=== PATIENT | male | born 1965 | race Caucasian/White ===

== ENCOUNTER 2017-02-15 06:38 | Day surgery (SDC) | payer MEDICARE, OTHER ==
[2017-02-15 07:03] VITALS: BMI 30.5
[2017-02-15] MEDS ORDERED: Lactated Ringer's 500 ML IV SCH (07:30)
[2017-02-15] MEDS ORDERED: Lidocaine Hydrochloride 5 ML INJ ONE (07:37)
[2017-02-15] MEDS ORDERED: Propofol 10 mg/ml Inj (20 ML) ONE (07:37)
[2017-02-15] MEDS ORDERED: Phenylephrine 10 mg/ml Inj ONE (07:37)
--- NOTE | 2017-02-15 08:11 | CP.SDSHP ---
Same Day Surgery H & P - History Proposed Procedure: EGD Pre-Op Diagnosis: Cirrhosis. Abdominal pain - Previous Medical/Surgical History Cardiac: Hypertension Pulmonary: Emphysema/COPD (Hyperlipidemia) Endocrine/Metabolic: ETOH Abuse - Allergies Allergies: Allergies iv contrast Allergy (Intermediate, Uncoded 06/20/16 15:24) ITCHING also with rash - Current Medications Current Medications: reviewed, per reconciliation - Physical Exam General Appearance: wdwn nad Vital Signs: Vital Signs 02/15/17 02/15/17 07:03 08:05 Temperature 97 F L 97 F L Pulse Rate 80 80 Respiratory 20 20 Rate Blood Pressure 108/90 108/90 O2 Sat by Pulse 97 99 Oximetry Mental Status: Alert & Oriented x3 Heart: WNL Lungs: WNL GI: WNL - {Optional Preform as Required} Abdomen: WNL - Impression Impression: abdominal pain, cirrhosis, rule out varices Pt. Evaluated Today:Candidate for Anesthesia & Procedure: Yes - Date & Time Date: 02/15/17 Time: 08:11 Short Stay Discharge - Short Stay Discharge Admitting Diagnosis/Reason for Visit: ALCOHOLIC CIRRHOSIS Disposition: HOME/ ROUTINE
[2017-02-15] MEDS ORDERED: Albuterol-Ipratrop 3 mg / 0.5 (3 ml) UD INH STA (08:14)
[2017-02-15 08:55] LABS: INR 1.3
[2017-02-15 09:00] LABS: CHLORIDE 100 mmol/L (98-107); SODIUM 135 mmol/L (132-148)
[2017-02-15 09:02] LABS: HEMATOCRIT 44.7 % (35.0-51.0); MEAN CELL VOLUME 76.2 fL (80.0-94.0); MEAN CORPUSCULAR HEMOGLOBIN 24.5 pg (27.0-31.0); MEAN CORPUSCULAR HGB CONC 32.1 g/dL (33.0-37.0); MEAN PLATELET VOLUME 9.4 fL (7.2-11.7); RED CELL DISTRIBUTION WIDTH 17.3 % (11.5-14.5); WHITE BLOOD COUNT 8.9 K/uL (4.8-10.8)
[2017-02-15 09:03] LABS: ALKALINE PHOSPHATASE 98 U/L (38-126); ALT/SGPT 27 U/L (21-72); AST/SGOT 38 U/L (17-59); BLOOD UREA NITROGEN 12 mg/dL (9-20); CARBON DIOXIDE 28 mmol/L (22-30); GFR AFRICAN-AMERICAN > 60; GLUCOSE,RANDOM 91 mg/dL (75-110); TOTAL PROTEIN 6.8 g/dL (6.3-8.3)
[2017-02-15 09:04] LABS: CALCIUM 8.5 mg/dl (8.6-10.4)
[2017-02-15 10:34] VITALS: TEMP 97.5
[2017-02-15 11:33] VITALS: RESP 17
[2017-02-15 11:43] VITALS: BP 105/71; PULSE 80; O2SAT 94
== END 2017-02-15 11:15 | disposition home or self-care (01) ==
LOC: C.ENDO 06:38
PROVIDERS: ATTEND Internal Medicine Gastroenterology
DX: K31.89 Other diseases of stomach and duodenum (principal); K21.9 Gastro-esophageal reflux disease without esophagitis; K70.30 Alcoholic cirrhosis of liver without ascites; F10.10 Alcohol abuse, uncomplicated; I10 Essential (primary) hypertension; J43.9 Emphysema, unspecified; E78.5 Hyperlipidemia, unspecified; E03.9 Hypothyroidism, unspecified; G89.29 Other chronic pain; Z72.0 Tobacco use; Z98.890 Other specified postprocedural states; Z79.899 Other long term (current) drug therapy; Z91.041 Radiographic dye allergy status

== ENCOUNTER 2017-02-22 15:36 | Observation (INO) | payer MEDICARE, OTHER ==
[2017-02-22 15:36] VITALS: BMI 30.5
[2017-02-22 16:13] LABS: BASO # 0.1 K/uL (0.0-0.2); BASO % 0.6 % (0.0-2.0); EOS # 0.1 K/uL (0.0-0.7); EOS % 0.8 % (0.0-4.0); HEMATOCRIT 47.1 % (35.0-51.0); LYMPH # 2.1 K/uL (1.0-4.3); LYMPH % 18.9 % (20.0-40.0); MEAN CELL VOLUME 76.3 fL (80.0-94.0); MEAN CORPUSCULAR HEMOGLOBIN 24.2 pg (27.0-31.0); MEAN CORPUSCULAR HGB CONC 31.7 g/dL (33.0-37.0); MEAN PLATELET VOLUME 9.3 fL (7.2-11.7); MONO # 1.1 K/uL (0.0-0.8); MONO % 9.9 % (0.0-10.0); NRBC % 0.1 % (0.0-2.0); RED CELL DISTRIBUTION WIDTH 17.6 % (11.5-14.5); WHITE BLOOD COUNT 11.3 K/uL (4.8-10.8)
--- NOTE | 2017-02-22 16:18 | C.PDOC ---
History Of Present Illness 51 year old patient, with a past medical history of Anxiety, Asthma, Bipolar Disorder, COPD, Depression, Gastritis, HTN, Chronic Pain, presents to the ED initially complaining of chest pain and shortness of breath. He then states he has no chest pain or shortness of breath, but he has body aches and a sore throat for the past 3 days. Patient admits he has been drinking alcohol thinking that it would make him feel better. Patient notes he took many shots at home. He denies fever, chest pain, shortness of breath, nausea, vomiting, headache or dizziness. Time Seen by Provider: 02/22/17 15:38 Chief Complaint (Nursing): Shortness Of Breath History Per: Patient History/Exam Limitations: intoxication Onset/Duration Of Symptoms: Days (3) Current Symptoms Are (Timing): Still Present Quality: "Pain" Severity: Mild Pain Scale Rating Of: 3 Recent travel outside of the [place]: No Additional History Per: Prior Records Past Medical History Reviewed: Historical Data, Nursing Documentation, Vital Signs Vital Signs: Last Vital Signs Temp 98.1 F 02/22/17 15:42 Pulse 102 H 02/22/17 15:42 Resp 22 02/22/17 15:42 BP 106/1 L 02/22/17 15:42 Pulse Ox 92 L 02/22/17 18:11 - Medical History PMH: Anxiety, Asthma, Bipolar Disorder, COPD, Depression, Gastritis, HTN, Chronic Pain Surgical History: Coronary Stent, Endoscopy - [facility] Procedures DETOXIFICATION SERVICES FOR SUBSTANCE ABUSE TREATMENT (12/14/15) INJECT/INFUSE NEC (01/28/15) NEBULIZER THERAPY (01/28/15) Family History: States: Unknown Family Hx - Social History Hx Tobacco Use: Yes Hx Alcohol Use: Yes Hx Substance Use: No - Immunization History Hx Tetanus Toxoid Vaccination: No Hx Influenza Vaccination: No Hx Pneumococcal Vaccination: No Review Of Systems Except As Marked, All Systems Reviewed And Found Negative. Constitutional: Positive for: Other (body aches). Negative for: Fever ENT: Positive for: Throat Pain Cardiovascular: Negative for: Chest Pain Respiratory: Negative for: Shortness of Breath Gastrointestinal: Negative for: Nausea, Vomiting Neurological: Negative for: Headache, Dizziness Physical Exam - Physical Exam Appears: Non-toxic, No Acute Distress, Other (sleepy, arousable) Skin: Warm, Dry Head: Atraumatic, Normacephalic Neck: Normal ROM, Supple Chest: Symmetrical Cardiovascular: Rhythm Regular Respiratory: No Accessory Muscle Use, No Rales, Rhonchi (bilateral), Wheezing ( bilateral) Gastrointestinal/Abdominal: Soft, No Tenderness Back: Normal Inspection, No CVA Tenderness Extremity: Normal ROM Neurological/Psych: Oriented x3, Normal Speech, Normal Cognition Gait: Steady ED Course And Treatment - Laboratory Results Result Diagrams: 02/22/17 16:09 02/22/17 16:09 Lab Interpretation: No Acute Changes ECG: Interpreted By Me ECG Rhythm: Sinus Rhythm, R BBB ECG Interpretation: No Changes From Prior Rate From EC O2 Sat by Pulse Oximetry: 92 (room air) Pulse Ox Interpretation: Abnormal - Radiology CXR: Interpreted by Me, Viewed By Me CXR Interpretation: Yes: No Acute Disease Progress Note: Plan: EKG, Labs, Chest x-ray, Duoneb, Solu-Medrol. Treated with toradol IV. On re-evaluation C/O continued generalized pain. Treated with morphine 4 mg IV. On re-evaluation lungs few wheeze Reassessment Condition: Improved - Physician Consult Information Physician Contacted: Baldomero Ham Outcome Of Conversation: admit Disposition Discussed With : Baldomero Ham Doctor Will See Patient In The: Hospital - Disposition Disposition: HOSPITALIZED Disposition Time: 18:20 Condition: STABLE - POA Present On Arrival: None - Clinical Impression Clinical Impression: Chronic congestive heart failure, Chest pain, Alcohol abuse - PA / VP GENETIC / Resident Statement MD/DO has reviewed & agrees with the documentation as recorded. - Scribe Statement The provider has reviewed the documentation as recorded by the Scribe Julianna Gorman All medical record entries made by the Scribe were at my direction and personally dictated by me. I have reviewed the chart and agree that the record accurately reflects my personal performance of the history, physical exam, medical decision making, and the department course for this patient. I have also personally directed, reviewed, and agree with the discharge instructions and disposition.
[2017-02-22 16:25] LABS: CHLORIDE 101 mmol/L (98-107); POTASSIUM 3.3 mmol/L (3.6-5.2); SODIUM 136 mmol/L (132-148)
[2017-02-22 16:27] LABS: AST/SGOT 35 U/L (17-59); BILIRUBIN,TOTAL 1.6 mg/dL (0.2-1.3); CARBON DIOXIDE 21 mmol/L (22-30); GFR AFRICAN-AMERICAN > 60
[2017-02-22 16:28] LABS: ALB/GLOB RATIO 0.9 (1.0-2.1); ALKALINE PHOSPHATASE 93 U/L (38-126); ALT/SGPT 32 U/L (21-72); BLOOD UREA NITROGEN 10 mg/dL (9-20); CALCIUM 8.7 mg/dl (8.6-10.4); GLUCOSE,RANDOM 109 mg/dL (75-110); TOTAL PROTEIN 6.9 g/dL (6.3-8.3)
[2017-02-22 16:29] LABS: ALCOHOL SERUM 115 mg/dl (0-10)
--- NOTE | 2017-02-22 17:05 | RAD ---
HISTORY: SOB COMPARISON: No prior. TECHNIQUE: Chest PA and lateral FINDINGS: LUNGS: Mild to moderate venous congestion. Bilateral hilar prominence. Patchy left basilar airspace opacity. Biapical pleural thickening with upper lobe granulomatous changes. PLEURA: As above. CARDIOVASCULAR: Cardiomegaly. OSSEOUS STRUCTURES: Bilateral rib deformities; left greater than right. VISUALIZED UPPER ABDOMEN: Normal. OTHER FINDINGS: None. IMPRESSION: Mild to moderate venous congestion. Bilateral hilar prominence. Patchy left basilar airspace opacity. Biapical pleural thickening with upper lobe granulomatous changes.
[2017-02-22] MEDS ORDERED: Albuterol-Ipratrop 3 mg / 0.5 (3 ml) UD ONE (17:16)
[2017-02-22] MEDS: Albuterol-Ipratrop 3 mg / 0.5 (3 ml) UD IH SCH ×3 (17:20→17:40)
[2017-02-22] MEDS ORDERED: Morphine 4 MG/ML VIAL ONE (17:54)
[2017-02-22] MEDS ORDERED: Albuterol-Ipratrop 3 mg / 0.5 (3 ml) UD INH PRN (18:51)
[2017-02-22 19:46] LABS: RBC URINE 6 /hpf (0-3); URINE BACTERIA RARE (<OCC); URINE BILIRUBIN NEGATIVE (NEGATIVE); URINE BLOOD 2+ (NEGATIVE); URINE COLOR Yellow (YELLOW); URINE GLUCOSE (UA) NORMAL (Normal); URINE KETONE NEGATIVE (NEGATIVE); URINE LEUKOCYTE ESTERASE NEG Leu/uL (Negative); URINE PROTEIN NEGATIVE (NEGATIVE); URINE UROBILINOGEN NORMAL mg/dL (0.2-1.0); WBC URINE 4 /hpf (0-5)
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
[2017-02-23] MEDS: Potassium Chloride 20 mEq ER Tab PO SCH (12:55)
[2017-02-23] MEDS: Pantoprazole 40 mg EC Tab PO SCH (12:55)
[2017-02-23] MEDS: Azithromycin 500 MG in Sodium Chloride 0.9% 250 ML IVPB SCH (14:34)
[2017-02-23] MEDS: Oxycodone/Acetaminophen 5/325 mg Tab PO PRN (16:34)
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
--- NOTE | 2017-02-23 20:34 | CON ---
DATE: 02/23/2017 ADDENDUM PAST MEDICAL HISTORY: The patient has history of hypertension, thrombocytopenia, congestive heart surinder lure, pneumonia, chronic obstructive pulmonary disease, history of chronic pain syndrome, narcotic wi thdrawal. Tal Galvan MD cc: [phone] TT: 02/23/2017 20:33:35 Confirmation # [id number] Dictation # [id number] rn
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
--- NOTE | 2017-02-23 22:58 | CARD ---
APPROVED REPORT EKG Measurement Heart [id number] <Conclusion> Normal sinus rhythm Right superior axis deviation Incomplete right bundle branch block Inferior infarct, age undetermined Anterior infarct, age undetermined Inferolateral T wave abnormality, consider ischemia Abnormal ECG
[2017-02-24 06:57] LABS: BASO % 0.1 % (0.0-2.0); EOS # 0.1 K/uL (0.0-0.7); EOS % 0.6 % (0.0-4.0); HEMATOCRIT 43.7 % (35.0-51.0); LYMPH # 1.5 K/uL (1.0-4.3); LYMPH % 12.8 % (20.0-40.0); MEAN CELL VOLUME 76.5 fL (80.0-94.0); MEAN CORPUSCULAR HEMOGLOBIN 24.5 pg (27.0-31.0); MEAN CORPUSCULAR HGB CONC 32.1 g/dL (33.0-37.0); MEAN PLATELET VOLUME 9.9 fL (7.2-11.7); MONO # 0.7 K/uL (0.0-0.8); MONO % 6.5 % (0.0-10.0); NRBC % 0.1 % (0.0-2.0); RED CELL DISTRIBUTION WIDTH 18.1 % (11.5-14.5); WHITE BLOOD COUNT 11.5 K/uL (4.8-10.8)
[2017-02-24 07:22] LABS: CHLORIDE 107 mmol/L (98-107); POTASSIUM 4.3 mmol/L (3.6-5.2); SODIUM 137 mmol/L (132-148)
[2017-02-24 07:25] LABS: BLOOD UREA NITROGEN 14 mg/dL (9-20); CARBON DIOXIDE 25 mmol/L (22-30); GFR AFRICAN-AMERICAN > 60; GLUCOSE,RANDOM 111 mg/dL (75-110)
[2017-02-24 07:26] LABS: CALCIUM 8.7 mg/dl (8.6-10.4)
[2017-02-24 08:05] VITALS: PULSE 72; RESP 18; TEMP 97.5; O2SAT 94
[2017-02-24] MEDS: Potassium Chloride 20 mEq ER Tab PO SCH (10:14)
[2017-02-24] MEDS: Oxycodone/Acetaminophen 5/325 mg Tab PO PRN (10:14)
[2017-02-24] MEDS: Pantoprazole 40 mg EC Tab PO SCH (10:14)
[2017-02-24 10:23] VITALS: BP 110/79
--- NOTE | 2017-02-24 10:58 | CP.PCM.PN ---
<Arnie Noriega - Last Filed: 02/24/17 16:54> Subjective - Date & Time of Evaluation Date of Evaluation: 02/24/17 Time of Evaluation: 07:40 - Subjective Subjective: Cardiology Progress Note Dr. Montenegro Patient seen and examined at bedside. Sleeping during exam, somewhat somnolent , likely 2/2 alcohol withdrawal management medications, but arousable compared to yesterday, AAOx3, able to answer in sentences. No acute events overnight as per nursing. Objective - Vital Signs/Intake and Output Vital Signs (last 24 hours): Temp Pulse Resp BP Pulse Ox 97.5 F L 72 18 110/79 94 L 02/24/17 08:04 02/24/17 08:04 02/24/17 08:04 02/24/17 10:14 02/24/17 08:04 - Medications Medications: Current Medications Albuterol/Ipratropium (Duoneb 3 Mg/0.5 Mg (3 Ml) Ud) 3 ml INH RQ6 PRN PRN Reason: Shortness of Breath Furosemide (Lasix) 20 mg PO DAILY [facility] Last Admin: 02/24/17 10:14 Dose: 20 mg Heparin Sodium (Porcine) (Heparin) 5,000 units SC Q8 [facility] Last Admin: 02/24/17 06:15 Dose: 5,000 units Ceftriaxone Sodium 1 gm/ (Sodium Chloride) 100 mls @ 100 mls/hr IVPB Q24H [facility] Last Admin: 02/24/17 10:49 Dose: 100 mls/hr Azithromycin 500 mg/ Sodium (Chloride) 250 mls @ 250 mls/hr IVPB Q24H [facility] Last Admin: 02/23/17 14:34 Dose: 250 mls/hr Ibuprofen (Motrin Tab) 600 mg PO TID PRN PRN Reason: Pain, Mild (1-3) Last Admin: 02/23/17 12:50 Dose: 600 mg Lorazepam (Ativan) 2 mg IVP Q4H PRN PRN Reason: Anxiety Last Admin: 02/23/17 23:07 Dose: 2 mg Nicotine (Nicoderm Cq) 1 patch TD DAILY [facility] Last Admin: 02/24/17 10:14 Dose: 1 patch Oxycodone/Acetaminophen (Percocet 5/325 Mg Tab) 2 tab PO Q6H PRN PRN Reason: Pain, moderate (4-7) Stop: 02/26/17 16:13 Last Admin: 02/24/17 10:14 Dose: 2 tab Pantoprazole Sodium (Protonix Ec Tab) 40 mg PO DAILY [facility] Last Admin: 02/24/17 10:14 Dose: 40 mg Potassium Chloride (K-Dur 20 Meq Er Tab) 20 meq PO DAILY [facility] Last Admin: 02/24/17 10:14 Dose: 20 meq Thiamine HCl (Vitamin B1 Tab) 100 mg PO BID [facility] Last Admin: 02/24/17 10:15 Dose: 100 mg - Labs Labs: 02/24/17 06:50 02/24/17 06:50 - Additional Findings Additional findings: - Constitutional Appears: Unkempt, Somnolent/sedated but arousable - Eye Exam Eye Exam: Normal appearance - ENT Exam ENT Exam: Moist mucous membranes - Neck Exam Neck exam: Normal Inspection, No JVD - Respiratory Exam Respiratory Exam: Clear to Auscultation Bilateral, NORMAL BREATHING PATTERN, Not following commands for deep breathing on auscultation - Cardiovascular Exam Cardiovascular Exam: REGULAR RHYTHM, +S1, +S2 - GI/Abdominal Exam GI & Abdominal Exam: Normal Bowel Sounds, Soft. absent: Tenderness, Firm, Rigid - Extremities Exam Extremities exam: Positive for: normal inspection. Negative for: pedal edema, erythema, asymmetrical swelling - Neurological Exam Neurological exam: Altered, Somnolent/Sedated - Skin Skin Exam: Normal Color, Warm, Dry, Intact Assessment and Plan (1) Chest pain Assessment & Plan: EKG 02/22/17: Normal sinus rhythm, Right superior axis deviation, Incomplete RBBB , Inferior and Anterior infarct, age undetermined. CXR 02/22/17: Mild to moderate venous congestion. Bilateral hilar prominence. Patchy left basilar airspace opacity. Biapical pleural thickening with upper lobe granulomatous changes. ECHO 12/14/15: EF 50-55% with diastolic dysfunction, mild TR, no AR, MR or PVR, mild pulm HTN. ECHO 02/22/17: read pending Cath 06/15/16: normal coronaries with normal EF (per Dr. Glynn) Trops negative x3 -51 year old male admitted overnight with pneumonia, COPD exacerbation and alcohol intoxication. -Continue to monitor on Telemetry. -Cardiac Cath done 06/15/16 showed normal coronaries and EF on cath done 06/15/16. -Trops negative x3, pt denied chest pain yesterday, likely non-cardiac and secondary to pneumonia. -continue IV antibiotics as per primary team - f/u repeat ECHO. Last ECHO 12/13/16. Status: Acute (2) HTN (hypertension) Assessment & Plan: -BP controlled at this time. -Continue Lasix 20 mg PO daily as per primary team. Status: Acute - Assessment and Plan (Free Text) Assessment: Case discussed with Dr. Montenegro <Lucien Montenegro - Last Filed: 02/27/17 17:33> Objective - Vital Signs/Intake and Output Vital Signs (last 24 hours): Temp Pulse Resp BP Pulse Ox 97.5 F L 72 18 110/79 94 L 02/24/17 08:04 02/24/17 08:04 02/24/17 08:04 02/24/17 10:14 02/24/17 08:04 - Labs Labs: 02/24/17 06:50 02/24/17 06:50 Attending/Attestation - Attestation I have personally seen and examined this patient.: Yes I have fully participated in the care of the patient.: Yes I have reviewed all pertinent clinical information, including history, physical exam and plan: Yes Notes (Text): 02/27/17 17:33 Pt still withrawing from alchohol. No cp
[2017-02-24] MEDS: Azithromycin 500 MG in Sodium Chloride 0.9% 250 ML IVPB SCH (12:26)
--- NOTE | 2017-02-24 12:32 | PN ---
DATE: 02/24/2017 SUBJECTIVE: The patient is seen. The patient is more alert and verbal today. He said he wants to g o home because he has to meet a friend who is arriving from [place] at the airport. He will be going to the airport with his friend. The patient is not complaining of pain currently and is on Ativan p. r.n. and Percocet p.r.n. The patient states he wants to talk to Dr. Ham for medical clearan ce. VITAL SIGNS: Temperature is 97.5, pulse rate 72, blood pressure is 110/79, respiration is 18, oxygen sat is 94%. REVIEW OF SYSTEMS: GENERAL: The patient is more alert, verbal, seen in his room, more comfortable. SKIN: No diaphoresis. HEENT: No headache, no dizziness. NECK: Supple. RESPIRATORY: Not in acute respiratory distress. CARDIOVASCULAR: No chest pain. GASTROINTESTINAL: No nausea, no vomiting. EXTREMITIES: The patient is moving extremities, no tremors. MUSCULOSKELETAL: Feels weak. NEUROLOGIC: Alert, oriented x 3. MENTAL STATUS EXAMINATION: Well-developed male who looks stated age, oriented x 3. Mood is calmer. Affect is reactive. Speech spontaneous. Thought process coherent. Thought content: No psychosis. No suicidal or homicidal ideation. The patient wants to go home. He said he has to meet somebody from the airport arriving from [place]. Attention and memory seem to be fair. Insight and judgment f air. Impulse control is fair. IMPRESSION: History of bipolar disorder, not otherwise specified, as well as history of alcohol depe ndence as well as consider alcohol withdrawal. PLAN AND RECOMMENDATIONS: The patient seen, meds reviewed. Continue present management. Continue p resent psych meds. If patient will insist to go home, patient may need to sign AMA. Tal Galvan MD cc: [phone] TT: 02/24/2017 12:32:04 Confirmation # [id number] Dictation # [id number]
--- NOTE | 2017-02-26 21:12 | CARD ---
APPROVED REPORT EXAM: Two-dimensional and M-mode echocardiogram with Doppler and color Doppler. Other Information Quality : GoodRhythm : NSR INDICATION Dyspnea COPD Coronary Stent; alchohol abuse RISK FACTORS Hypertension M-Mode DIMENSIONS RVDd2.01 (2.1-3.2cm)Left Atrium (MM)4.43 (2.5-4.0cm) IVSd0.66 (0.7-1.1cm)Aortic Root3.28 (2.2-3.7cm) LVDd5.21 (4.0-5.6cm)Aortic Cusp Exc.2.25 (1.5-2.0cm) PWd0.76 (0.7-1.1cm)FS (%) 40 % LVDs3.12 (2.0-3.8cm)LVEF (%)70 (>50%) Mitral Valve MV E Txsfgokn15.4cm/sMV A Hmttutdf26.5cm/sE/A ratio0.6 TDI E/Lateral E'0.0E/Medial E'0.0 Tricuspid Valve TR Peak Swjydnwz352hm/sTR Peak Gr.[id number] LEFT VENTRICLE The left ventricle is normal size. There is normal left ventricular wall thickness. Left ventricle systolic function is normal. The Ejection Fraction is 65-70%. There is normal LV segmental wall motion. Tissue Doppler imaging reveals abnormal left ventricular diastolic dysfunction. No left ventricle thrombus noted on this study. RIGHT VENTRICLE The right ventricle is normal size. There is normal right ventricular wall thickness. The right ventricular systolic function is normal. ATRIA The left atrium size is normal. The right atrium size is normal. The interatrial septum is intact with no evidence for an atrial septal defect. AORTIC VALVE The aortic valve is normal in structure. No aortic regurgitation is present. There is no aortic valvular stenosis. There is no aortic valvular vegetation. MITRAL VALVE The mitral valve is normal in structure. There is no evidence of mitral valve prolapse. There is no mitral valve stenosis. There is no mitral valve regurgitation noted. TRICUSPID VALVE The tricuspid valve is normal in structure. There is mild tricuspid regurgitation. Right ventricular systolic pressure is estimated at 30-40 mmHg. There is mild pulmonary hypertension. PULMONIC VALVE The pulmonic valve is not well visualized. There is no pulmonic valvular regurgitation. GREAT VESSELS The aortic root is normal in size. PERICARDIAL EFFUSION There is no significant pericardial effusion. <Conclusion> Left ventricle systolic function is normal. The Ejection Fraction is 65-70%. Diastolic dysfunction. No aortic regurgitation is present. There is no mitral valve regurgitation noted. There is mild tricuspid regurgitation. There is mild pulmonary hypertension. There is no pulmonic valvular regurgitation.
--- NOTE | 2017-03-25 11:53 | CP.PCM.DIS ---
Provider - Provider Date of Admission: 02/22/17 18:07 Attending physician: Baldomero Ham MD Time Spent in preparation of Discharge (in minutes): 25 Diagnosis - Discharge Diagnosis (1) Pneumonia Status: Acute (2) COPD (chronic obstructive pulmonary disease) Status: Chronic (3) Chest pain Status: Acute (4) Alcohol abuse Status: Acute (5) Bipolar 1 disorder Status: Chronic Hospital Course - Lab Results Lab Results: Most Recent Lab Values WBC 11.5 K/uL (4.8-10.8) H 02/24/17 06:50 RBC 5.72 Mil/uL (4.40-5.90) 02/24/17 06:50 Hgb 14.0 g/dL (12.0-18.0) 02/24/17 06:50 Hct 43.7 % (35.0-51.0) 02/24/17 06:50 MCV 76.5 fL (80.0-94.0) L 02/24/17 06:50 MCH 24.5 pg (27.0-31.0) L 02/24/17 06:50 MCHC 32.1 g/dL (33.0-37.0) L 02/24/17 06:50 RDW 18.1 % (11.5-14.5) H 02/24/17 06:50 Plt Count 109 K/uL (130-400) L D 02/24/17 06:50 MPV 9.9 fL (7.2-11.7) 02/24/17 06:50 Neut % (Auto) 80.0 % (50.0-75.0) H 02/24/17 06:50 Lymph % (Auto) 12.8 % (20.0-40.0) L 02/24/17 06:50 [place] % (Auto) 6.5 % (0.0-10.0) 02/24/17 06:50 Eos % (Auto) 0.6 % (0.0-4.0) 02/24/17 06:50 Baso % (Auto) 0.1 % (0.0-2.0) 02/24/17 06:50 Neut # 9.2 K/uL (1.8-7.0) H 02/24/17 06:50 Lymph # 1.5 K/uL (1.0-4.3) 02/24/17 06:50 [place] # 0.7 K/uL (0.0-0.8) 02/24/17 06:50 Eos # 0.1 K/uL (0.0-0.7) 02/24/17 06:50 Baso # 0.0 K/uL (0.0-0.2) 02/24/17 06:50 Sodium 137 mmol/L (132-148) 02/24/17 06:50 Potassium 4.3 mmol/L (3.6-5.2) 02/24/17 06:50 Chloride 107 mmol/L (98-107) 02/24/17 06:50 Carbon Dioxide 25 mmol/L (22-30) 02/24/17 06:50 Anion Gap 10 (10-20) 02/24/17 06:50 BUN 14 mg/dL (9-20) 02/24/17 06:50 Creatinine 0.6 MG/DL (0.8-1.5) L 02/24/17 06:50 Est GFR ( Amer) > 60 02/24/17 06:50 Est GFR (Non-Af Amer) > 60 02/24/17 06:50 POC Glucose (mg/dL) 120 mg/dL (65-110) H 02/24/17 06:19 Random Glucose 111 mg/dL (75-110) H 02/24/17 06:50 Calcium 8.7 mg/dl (8.6-10.4) 02/24/17 06:50 Total Bilirubin 1.6 mg/dL (0.2-1.3) H 02/22/17 16:09 AST 35 U/L (17-59) 02/22/17 16:09 ALT 32 U/L (21-72) 02/22/17 16:09 Alkaline Phosphatase 93 U/L (38-126) 02/22/17 16:09 Total Creatine Kinase 51 U/L (55-170) L 02/23/17 08:54 CK-MB (Mass) 1.64 ng/mL (0.0-3.38) 02/23/17 08:54 Troponin I < 0.0120 ng/mL (0.00-0.120) 02/22/17 16:09 Troponin I, Quant < 0.0120 ng/mL (0.00-0.120) 02/23/17 08:54 NT-Pro-B Natriuret Pep 57.0 pg/mL (0-450) 02/22/17 16:09 Total Protein 6.9 g/dL (6.3-8.3) 02/22/17 16:09 Albumin 3.3 g/dL (3.5-5.0) L 02/22/17 16:09 Globulin 3.6 gm/dL (2.2-3.9) 02/22/17 16:09 Albumin/Globulin Ratio 0.9 (1.0-2.1) L 02/22/17 16:09 Urine Color Yellow (YELLOW) 02/22/17 19:30 Urine Clarity Hazy (Clear) 02/22/17 19:30 Urine pH 5.0 (5.0-8.0) 02/22/17 19:30 Ur Specific [place] 1.014 (1.003-1.030) 02/22/17 19:30 Urine Protein Negative mg/dL (NEGATIVE) 02/22/17 19:30 Urine Glucose (UA) Normal mg/dL (Normal) 02/22/17 19:30 Urine Ketones Negative mg/dL (NEGATIVE) 02/22/17 19:30 Urine Blood 2+ (NEGATIVE) H 02/22/17 19:30 Urine Nitrate Negative (NEGATIVE) 02/22/17 19:30 Urine Bilirubin Negative (NEGATIVE) 02/22/17 19:30 Urine Urobilinogen Normal mg/dL (0.2-1.0) 02/22/17 19:30 Ur Leukocyte Esterase Neg Shine/uL (Negative) 02/22/17 19:30 Urine WBC (Auto) 4 /hpf (0-5) 02/22/17 19:30 Urine RBC (Auto) 6 /hpf (0-3) H 02/22/17 19:30 Ur Squamous Epith Cells 3 /hpf (0-5) 02/22/17 19:30 Amorphous Sediment Rare /ul (<OCC) H 02/22/17 19:30 Urine Bacteria Rare (<OCC) 02/22/17 19:30 Urine Opiates Screen Positive (NEGATIVE) 02/22/17 19:30 Urine Methadone Screen Negative (NEGATIVE) 02/22/17 19:30 Ur Barbiturates Screen Negative (NEGATIVE) 02/22/17 19:30 Ur Phencyclidine Scrn Negative (NEGATIVE) 02/22/17 19:30 Ur Amphetamines Screen Negative (NEGATIVE) 02/22/17 19:30 U Benzodiazepines Scrn Negative (NEGATIVE) 02/22/17 19:30 U Oth Cocaine Metabols Negative (NEGATIVE) 02/22/17 19:30 U Cannabinoids Screen Positive (NEGATIVE) 02/22/17 19:30 Alcohol, Quantitative 115 mg/dl (0-10) H 02/22/17 16:09 Influenza Typ A,B (EIA) Negative for flu a/b (NEGATIVE) 02/22/17 16:12 Discharge Exam - Head Exam Additional comments: pt left ama Discharge Plan - Follow Up Plan Condition: STABLE Disposition: AGAINST MEDICAL ADVICE
== END 2017-02-24 13:10 | disposition left against medical advice (07) ==
LOC: C.ER 15:36 → C.9E 18:07 → C.5T 19:04
PROVIDERS: ADMIT Internal Medicine Pulmonary Disease; ATTEND Internal Medicine Pulmonary Disease
DX: J44.0 Chronic obstructive pulmonary disease with (acute) lower respiratory infection (principal); J18.9 Pneumonia, unspecified organism; J44.1 Chronic obstructive pulmonary disease with (acute) exacerbation; F10.229 Alcohol dependence with intoxication, unspecified; K74.60 Unspecified cirrhosis of liver; I11.0 Hypertensive heart disease with heart failure; I50.9 Heart failure, unspecified; E78.5 Hyperlipidemia, unspecified; G89.4 Chronic pain syndrome; F11.20 Opioid dependence, uncomplicated; F17.210 Nicotine dependence, cigarettes, uncomplicated; F31.9 Bipolar disorder, unspecified; Z98.890 Other specified postprocedural states; Z79.899 Other long term (current) drug therapy; Z91.041 Radiographic dye allergy status
CPT/HCPCS: 36415; 71020; 80048; 80053; 81001; 82553; 82948; 83880; 84484; 85025; 87804; 93005; 93306; 94640; 96374; 99284; G0378; G0480; J0456; J0696; J1644; J1885; J2060; J2270; J2930; J7050

== ENCOUNTER 2017-03-04 23:53 | Observation (INO) | payer OTHER ==
[2017-03-04 23:53] VITALS: BMI 30.5
[2017-03-05 00:12] VITALS: RESP 16; TEMP 97.9
--- NOTE | 2017-03-05 00:29 | C.PDOC ---
History Of Present Illness Patient was brought to the ED by EMS with EtOH on breath. Patient denies any physical complaints at this time. Time Seen by Provider: 03/05/17 00:28 Chief Complaint (Nursing): Substance Abuse History Per: Patient, EMS History/Exam Limitations: no limitations Onset/Duration Of Symptoms: Hrs Current Symptoms Are (Timing): Still Present Suicide/Self Injury Attempted (Context): None Associated Symptoms: denies: Suicidal Thoughts Recent travel outside of the [place]: No Past Medical History Reviewed: Historical Data, Nursing Documentation, Vital Signs Vital Signs: Last Vital Signs Temp 97.9 F 03/05/17 00:04 Pulse 70 03/05/17 00:04 Resp 16 03/05/17 00:04 BP 96/72 L 03/05/17 00:04 Pulse Ox 98 03/05/17 02:18 - Medical History PMH: Anxiety, Asthma, Bipolar Disorder, COPD, Depression, Gastritis, HTN, Chronic Pain Surgical History: Coronary Stent, Endoscopy - [facility] Procedures DETOXIFICATION SERVICES FOR SUBSTANCE ABUSE TREATMENT (12/14/15) INJECT/INFUSE NEC (01/28/15) NEBULIZER THERAPY (01/28/15) Family History: States: Unknown Family Hx - Social History Hx Tobacco Use: Yes Hx Alcohol Use: No Hx Substance Use: No - Immunization History Hx Tetanus Toxoid Vaccination: No Hx Influenza Vaccination: No Hx Pneumococcal Vaccination: No Review Of Systems Constitutional: Negative for: Fever, Chills, Sweats Cardiovascular: Negative for: Chest Pain, Palpitations Respiratory: Negative for: Cough, Shortness of Breath Gastrointestinal: Negative for: Nausea, Vomiting, Abdominal Pain, Diarrhea Genitourinary: Negative for: Dysuria Musculoskeletal: Negative for: Back Pain Skin: Negative for: Rash, Lesions Neurological: Negative for: Weakness Psych: Positive for: Anxiety Physical Exam - Physical Exam Appears: Non-toxic, No Acute Distress, Combative, Agitated Skin: Warm, Dry Head: Atraumatic Eye(s): bilateral: Normal Inspection Oral Mucosa: Moist Neck: Supple Chest: Symmetrical, No Deformity Cardiovascular: Rhythm Regular Respiratory: No Rales, No Rhonchi, No Stridor, No Wheezing Gastrointestinal/Abdominal: Soft, No Tenderness, No Distention, No Guarding, No Rebound Extremity: Normal ROM, No Tenderness Extremity: Bilateral: Atraumatic Neurological/Psych: Oriented x3, Normal Speech, Normal Cognition Gait: Steady ED Course And Treatment - Laboratory Results Result Diagrams: 03/05/17 00:49 03/05/17 00:49 O2 Sat by Pulse Oximetry: 98 (room air ) Pulse Ox Interpretation: Normal Progress Note: pt now wants to go home. ambulating without any difficulty, ED OBSERVATION Discharge: Yes Date of observation admission: 03/05/17 Time of observation admission: 01:25 - Observation admission statement Patient is being placed in observation because:: acute alcohol intoxication - Goals of Observation Goals of observation are:: sobriety - Progress Note Progress Note: 03/05/17 01:25 vitals stable Disposition Counseled Patient/Family Regarding: Studies Performed, Diagnosis, Need For Followup - Disposition Disposition: HOME/ ROUTINE Disposition Time: 00:29 Condition: FAIR - Clinical Impression Clinical Impression: Alcohol intoxication - Scribe Statement The provider has reviewed the documentation as recorded by the Scribe Iris Wood All medical record entries made by the Idaniaibe were at my direction and personally dictated by me. I have reviewed the chart and agree that the record accurately reflects my personal performance of the history, physical exam, medical decision making, and the department course for this patient. I have also personally directed, reviewed, and agree with the discharge instructions and disposition.
[2017-03-05 01:01] LABS: CHLORIDE 105 mmol/L (98-107); POTASSIUM 3.5 mmol/L (3.6-5.2); SODIUM 141 mmol/L (132-148)
[2017-03-05 01:02] LABS: BASO # 0.1 K/uL (0.0-0.2); EOS # 0.1 K/uL (0.0-0.7); EOS % 1.2 % (0.0-4.0); HEMATOCRIT 46.4 % (35.0-51.0); LYMPH # 2.1 K/uL (1.0-4.3); LYMPH % 20.3 % (20.0-40.0); MEAN CELL VOLUME 76.4 fL (80.0-94.0); MEAN CORPUSCULAR HEMOGLOBIN 24.4 pg (27.0-31.0); MEAN PLATELET VOLUME 9.2 fL (7.2-11.7); MONO # 0.9 K/uL (0.0-0.8); NRBC % 0.1 % (0.0-2.0); RED CELL DISTRIBUTION WIDTH 17.7 % (11.5-14.5); WHITE BLOOD COUNT 10.4 K/uL (4.8-10.8)
[2017-03-05 01:03] LABS: ALKALINE PHOSPHATASE 81 U/L (38-126); AST/SGOT 40 U/L (17-59); BILIRUBIN,TOTAL 1.2 mg/dL (0.2-1.3); BLOOD UREA NITROGEN 7 mg/dL (9-20); CARBON DIOXIDE 22 mmol/L (22-30); GFR AFRICAN-AMERICAN > 60; TOTAL PROTEIN 6.6 g/dL (6.3-8.3)
[2017-03-05 01:04] LABS: ALCOHOL SERUM 102 mg/dl (0-10); ALT/SGPT 34 U/L (21-72); CALCIUM 8.7 mg/dl (8.6-10.4); GLUCOSE,RANDOM 101 mg/dL (75-110)
[2017-03-05 01:07] LABS: ALB/GLOB RATIO 1.1 (1.0-2.1)
[2017-03-05 02:54] VITALS: BP 110/64; PULSE 88; O2SAT 99
== END 2017-03-05 02:50 | disposition home or self-care (01) ==
LOC: C.ER 23:53 → C.9OBSV 03-05 01:23
PROVIDERS: ADMIT Emergency Medicine; ATTEND Emergency Medicine
DX: F10.120 Alcohol abuse with intoxication, uncomplicated (principal); I10 Essential (primary) hypertension; Z87.891 Personal history of nicotine dependence; Y90.5 Blood alcohol level of 100-119 mg/100 ml
CPT/HCPCS: 80053; 82948; 85025; 96374; 99285; G0378; G0480; J2060

== ENCOUNTER 2017-04-10 13:20 | Emergency (ER) | payer OTHER ==
[2017-04-10 13:32] VITALS: BMI 31.1
--- NOTE | 2017-04-10 14:05 | C.PDOC ---
History Of Present Illness 51M c/o left rib pain pain headache after he tripped and fell in the bathroom this am and hit his left side on the toilet and also hit his head. no LOC. he got up and took a cab here. he admits to drinking etoh this morning. Time Seen by Provider: 04/10/17 13:47 Chief Complaint (Nursing): Rib Injury Past Medical History Vital Signs: Last Vital Signs Temp 98.1 F 04/10/17 15:32 Pulse 92 H 04/10/17 15:32 Resp 16 04/10/17 15:32 BP 112/80 04/10/17 15:32 Pulse Ox 96 04/10/17 15:32 - Medical History PMH: Anxiety, Asthma, Bipolar Disorder, COPD, Depression, Gastritis, HTN, Chronic Pain Denies: Diabetes, Hepatitis, HIV, Chronic Kidney Disease, Seizures, Sexually Transmitted Disease Surgical History: Coronary Stent, Endoscopy - [facility] Procedures DETOXIFICATION SERVICES FOR SUBSTANCE ABUSE TREATMENT (12/14/15) INJECT/INFUSE NEC (01/28/15) NEBULIZER THERAPY (01/28/15) Family History: States: Unknown Family Hx - Social History Hx Tobacco Use: Yes Hx Alcohol Use: No Hx Substance Use: No - Immunization History Hx Tetanus Toxoid Vaccination: No Hx Influenza Vaccination: No Hx Pneumococcal Vaccination: No Review Of Systems Constitutional: Negative for: Fever Eyes: Negative for: Vision Change Cardiovascular: Negative for: Chest Pain Respiratory: Negative for: Cough, Shortness of Breath Gastrointestinal: Negative for: Nausea, Vomiting, Abdominal Pain Musculoskeletal: Positive for: Other (rib pain). Negative for: Neck Pain Neurological: Positive for: Headache. Negative for: Weakness, Numbness Physical Exam - Physical Exam Appears: Non-toxic, No Acute Distress Skin: Warm, Dry Head: Atraumatic, No Swelling, No Abrasion, No Laceration Eye(s): bilateral: PERRL, EOMI Oral Mucosa: Moist Lips: No Swelling, No Laceration Neck: Normal ROM, No Midline Cervical Tenderness Chest: Tenderness (left lateral ribs), No Subcutaneous Emphysema Cardiovascular: Rhythm Regular Respiratory: No Decreased Breath Sounds, No Accessory Muscle Use, No Rales, No Rhonchi, No Stridor, No Wheezing Gastrointestinal/Abdominal: Soft, No Tenderness, No Distention, No Guarding, No Rebound Back: No Vertebral Tenderness Neurological/Psych: Oriented x3, Normal Motor, Normal Sensation, Other (no focal deficits) ED Course And Treatment O2 Sat by Pulse Oximetry: 97 Medical Decision Making Medical Decision Making: the pt refused head CT chest/ribs xr- no acute fracture Disposition - Disposition Disposition: HOME/ ROUTINE Disposition Time: 15:54 Condition: STABLE - Clinical Impression Clinical Impression: Contusion of rib on left side
[2017-04-10 15:34] VITALS: BP 112/80; PULSE 92; RESP 16; TEMP 98.1
[2017-04-10 15:55] VITALS: O2SAT 97
--- NOTE | 2017-04-10 16:06 | RAD ---
PROCEDURE: Radiographs of the Chest and Left Ribs. HISTORY: fall left rib pain COMPARISON: 02/22/2017. TECHNIQUE: Frontal radiograph of the chest and multiple oblique radiographs of the left ribs were obtained. FINDINGS: LEFT RIBS: Multiple bilateral healed rib fractures are identified. There is callus appreciable about all of the visualized rib fractures. These include at least the right 4th through 7th ribs, and the left 3rd through 11th ribs. No definite acute rib fracture is identified. LUNGS: Clear. PLEURA: No pneumothorax or pleural fluid. CARDIOVASCULAR: Normal sized heart. No pulmonary vascular congestion. OTHER FINDINGS: None. IMPRESSION: Multiple bilateral old healed rib fractures. No definite acute rib fracture is identified.
== END 2017-04-10 16:12 | disposition home or self-care (01) ==
LOC: C.ER 13:20
DX: S20.212A Contusion of left front wall of thorax, initial encounter (principal); W01.198A Fall on same level from slipping, tripping and stumbling with subsequent striking against other object, initial encounter; Y92.89 Other specified places as the place of occurrence of the external cause
CPT/HCPCS: 71101; 96372; 99284; J1885

== ENCOUNTER 2017-10-10 14:48 | Inpatient (IN) | payer OTHER ==
[2017-10-10] MEDS ORDERED: Naloxone 0.4 mg/ml Inj (Adult) ONE ×2 (14:54→14:55)
[2017-10-10 14:59] VITALS: BMI 29.5
[2017-10-10] MEDS ORDERED: Naloxone 0.4 mg/ml Inj (Adult) IVP STA (15:00)
--- NOTE | 2017-10-10 15:03 | C.PDOC ---
History Of Present Illness 51 year old male, whose PMHx includes COPD, alcohol abuse, normal cardiac catheterization on 06/15/2016, normal EF, anxiety, asthma, bipolar disorder, chronic pain, HTN and gastritis, is brought to the ED by EMS for evaluation for a possible overdose. Patient is s/p 2mg Narcan given in field with limited improvement. Time Seen by Provider: 10/10/17 15:03 Chief Complaint (Nursing): Altered Mental Status History Per: EMS History/Exam Limitations: Clinical Condition Current Symptoms Are (Timing): Still Present Additional History Per: Patient Past Medical History Reviewed: Historical Data, Nursing Documentation, Vital Signs Vital Signs: Last Vital Signs Temp Pulse 93 H 10/10/17 18:17 Resp 20 10/10/17 18:17 BP 83/54 L 10/10/17 18:17 Pulse Ox 97 10/10/17 18:17 - Medical History PMH: Anxiety, Asthma, Bipolar Disorder, COPD, Depression, Gastritis, HTN, Chronic Pain Denies: Diabetes, Hepatitis, HIV, Chronic Kidney Disease, Seizures, Sexually Transmitted Disease Surgical History: Coronary Stent, Endoscopy - [facility] Procedures DETOXIFICATION SERVICES FOR SUBSTANCE ABUSE TREATMENT (12/14/15) INJECT/INFUSE NEC (01/28/15) NEBULIZER THERAPY (01/28/15) Family History: States: Unknown Family Hx - Social History Hx Tobacco Use: Yes Hx Alcohol Use: No Hx Substance Use: No - Immunization History Hx Tetanus Toxoid Vaccination: No Hx Influenza Vaccination: No Hx Pneumococcal Vaccination: No Review Of Systems Psych: Positive for: Other (possible overdose ) Physical Exam - Physical Exam Appears: No Acute Distress, Other (opiate intoxicated ) Skin: Normal Color, Warm, Dry Head: Atraumatic, Normacephalic Eye(s): bilateral: Other (pinpoint, sluggish ) Oral Mucosa: Moist Throat: Other (poor gag reflex ) Neck: Supple Chest: Symmetrical, No Deformity, No Tenderness, Other (no response to sternal rub ) Cardiovascular: Rhythm Regular, No Murmur Respiratory: Normal Breath Sounds, No Rales, No Rhonchi, No Wheezing Extremity: Normal ROM, Capillary Refill (less than 2 seconds ) Neurological/Psych: Oriented x3, Normal Speech, Normal Cognition Gait: Steady ED Course And Treatment - Laboratory Results Result Diagrams: 10/10/17 15:13 10/10/17 16:02 ECG: Interpreted By Me, Viewed By Me ECG Rhythm: Sinus Rhythm ECG Interpretation: No Changes From Prior (04/10/17) Interpretation Of ECG: Normal Sinus Rhythm at rate 72bpm. Incomplete right bundle branch block. No changes from prior EKG from 04/10/17. [id number] Rate From EC Progress Note: Bloodwork, urinalysis, CT Head, EKG, CXR ordered and reviewed. Albuterol INH, Narcan IVP, Solu-Medrol IVP and IV Fluids administered. Progress - Re-Evaluation Re-evaluation Note: 10/10/17 15:03 SP NARCAN 2 MG W MOD IMPROVE. IMPROVED RESPIRATION BUT STILL APPEARS PERSIST OPIATE INTOX. PERSIST HYPOTENSION. IVF IN PROGRESS 10/10/17 16:52 D/W DR RILEY WILL EVAL FOR ICU 10/10/17 17:05 PERSIST RECUR APNEA. POOR AIRWAY CONTROL. D/W DR AQUINO ANESTHESIA PAGED FOR ER EVAL, POSSIBLE INTUBATION 10/10/17 17:30 PERSIST HYPOTENSION, WILL START PRESSOR 10/10/17 18:08 PENDING CALLBACK Baldomero Ham 10/10/17 18:23 PENDING CALLBACK Baldomero Ham 10/10/17 18:36 PERSIST HYPOTENSION, ON DOPAMINE. +UO. UA PENDING. PENDING ICU EVAL - Data Reviewed Data Reviewed: Lab, Diagnostic imaging, EKG, Old records - Critical Care Citical Care: Excluding Proc Time Critical Care Time: 120 minutes - Continuity of Care Discussed patient case with:: Patient, Family-HIPPA compliant Disposition - Disposition Disposition Time: 19:00 Condition: SERIOUS Forms: [facility] (Faroese) - POA Present On Arrival: Poor Glycemic Control - Clinical Impression Clinical Impression: Opiate overdose, Hypocalcemia, Hypokalemia, Hypomagnesemia, Respiratory distress, COPD (chronic obstructive pulmonary disease) - Scribe Statement The provider has reviewed the documentation as recorded by the Scribe (Idania Gorman) Provider Attestation: All medical record entries made by the Scribe were at my direction and personally dictated by me. I have reviewed the chart and agree that the record accurately reflects my personal performance of the history, physical exam, medical decision making, and the department course for this patient. I have also personally directed, reviewed, and agree with the discharge instructions and disposition. Physician Patient Turnover Patient Signed Over To: Ron Mcneal Handoff Comments: FU UA, ICU EVAL, DISPO
[2017-10-10] MEDS ORDERED: MethylPREDNISolone 40 mg Vial IVP STA (15:08)
[2017-10-10] MEDS: Albuterol-Ipratrop 3 mg / 0.5 (3 ml) UD IH SCH ×3 (15:15→15:45)
[2017-10-10 15:23] LABS: BASO # 0.1 K/uL (0.0-0.2); BASO % 0.6 % (0.0-2.0); EOS # 0.5 K/uL (0.0-0.7); EOS % 4.6 % (0.0-4.0); HEMOGLOBIN 15.1 g/dL (12.0-18.0); LYMPH # 3.1 K/uL (1.0-4.3); LYMPH % 31.2 % (20.0-40.0); MEAN CELL VOLUME 79.5 fL (80.0-94.0); MEAN CORPUSCULAR HEMOGLOBIN 25.8 pg (27.0-31.0); MEAN CORPUSCULAR HGB CONC 32.4 g/dL (33.0-37.0); MEAN PLATELET VOLUME 9.7 fL (7.2-11.7); MONO # 1.4 K/uL (0.0-0.8); MONO % 13.7 % (0.0-10.0); NEUT # 4.9 K/uL (1.8-7.0); NEUT % 49.9 % (50.0-75.0); NRBC % 0.2 % (0.0-2.0); RBC 5.87 Mil/uL (4.40-5.90); WHITE BLOOD COUNT 9.9 K/uL (4.8-10.8)
[2017-10-10 15:47] LABS: ACETAMINOPHEN < 10.0 ug/mL (10.0-30.0); SALICYLATE < 1.0 mg/dL 1
--- NOTE | 2017-10-10 15:51 | RAD ---
HISTORY: Overdosed COMPARISON: Chest x-ray performed 04/10/17 TECHNIQUE: Chest, one view. FINDINGS: Examination limited by habitus and patient obliquity. The patient's chin obscures evaluation of the right lung apex. LUNGS: Central vascular and pulmonary venous congestion. Please note that chest x-ray has limited sensitivity for the detection of pulmonary masses. PLEURA: No significant pleural effusion identified. No definite pneumothorax . CARDIOVASCULAR: Cardiomegaly. OSSEOUS STRUCTURES: Chronic appearing rib fracture deformities. VISUALIZED UPPER ABDOMEN: Unremarkable. OTHER FINDINGS: None. IMPRESSION: Cardiomegaly. Central vascular and pulmonary venous congestion.
[2017-10-10] MEDS ORDERED: Sodium Chloride 0.9% 1,000 ML ONE (16:18)
[2017-10-10] MEDS ORDERED: MethylPREDNISolone 40 mg Vial ONE (16:18)
[2017-10-10] MEDS ORDERED: Albuterol-Ipratrop 3 mg / 0.5 (3 ml) UD ONE (16:18)
[2017-10-10 16:22] LABS: BLOOD UREA NITROGEN 13 mg/dL (9-20); GFR AFRICAN-AMERICAN > 60
[2017-10-10 16:23] LABS: ALB/GLOB RATIO 0.7 (1.0-2.1); ALBUMIN 1.9 g/dL (3.5-5.0); ALT/SGPT 22 U/L (21-72); AST/SGOT 43 U/L (17-59); CALCIUM 4.8 mg/dl (8.6-10.4); GFR NON-AFRICAN AMERICAN > 60
[2017-10-10] MEDS ORDERED: Calcium Gluconate 4.65 MEQ in Dextrose 5% In Water 100 ML IV STA (16:50)
[2017-10-10] MEDS ORDERED: Potassium Chloride 20 mEq/15 ml LIQ UD PO STA (16:50)
[2017-10-10] MEDS ORDERED: DOPamine 400mg/250ml D5W 400 MG/250 ML BAG IV PRN (17:28)
[2017-10-10 17:34] LABS: ABG ALLEN TEST POS; ARTERIAL BLOOD GAS HCO3 23.3 mmol/L (21-28); ARTERIAL BLOOD GAS O2 SAT 98.5 % (95-98); ARTERIAL BLOOD GAS PCO2 36 mm/Hg (35-45); ARTERIAL BLOOD GAS PO2 85 mm/Hg (80-100); ARTERIAL BLOOD GAS TCO2 23.4 mmol/L (22-28)
[2017-10-10 18:28] LABS: MAGNESIUM 1.1 mg/dL (1.6-2.3)
[2017-10-10] MEDS ORDERED: Magnesium Sulfate 1 gm in D5W 1 GM/100 ML BAG IV ONE (18:30)
[2017-10-10] MEDS ORDERED: Piperacillin/Tazobact 3.375 gm 100 ML IV STA (18:32)
[2017-10-10 18:42] LABS: BARBITURATES, UR NEGATIVE (NEGATIVE); BENZODIAZEPINES, UR NEGATIVE (NEGATIVE); PHENCYCLIDINE, UR NEGATIVE (NEGATIVE)
[2017-10-10 18:44] LABS: OPIATES, UR POSITIVE (NEGATIVE)
[2017-10-10] MEDS ORDERED: Vancomycin 1 GM 1 GM/250 ML BAG IV SCH (18:45)
[2017-10-10] MEDS ORDERED: Magnesium Sulfate 1 gm in D5W 1 GM/100 ML BAG IVPB ONE (18:49)
[2017-10-10 19:04] LABS: URINE BACTERIA RARE (<OCC); URINE BILIRUBIN NEGATIVE (NEGATIVE); URINE BLOOD 2+ (NEGATIVE); URINE CLARITY Hazy (Clear); URINE COLOR Yellow (YELLOW); URINE GLUCOSE (UA) NORMAL (Normal); URINE LEUKOCYTE ESTERASE NEG Leu/uL (Negative); URINE NITRATE NEGATIVE (NEGATIVE); URINE PROTEIN NEGATIVE (NEGATIVE); URINE UROBILINOGEN NORMAL mg/dL (0.2-1.0)
[2017-10-10] MEDS ORDERED: Vancomycin 1 gm/NS 200 ml 1 GM/200 ML BAG IVPB ONE (19:15)
[2017-10-10] MEDS ORDERED: Piperacill/Tazo 3.375gm in Dex 3.375 GM/50 ML BAG IVPB ONE (20:00)
--- NOTE | 2017-10-10 20:05 | CT ---
EXAM: CT Head Without Intravenous Contrast CLINICAL HISTORY: 51 years old, male; Signs and symptoms; Altered mental status/memory loss; Confusion or disorientation; Additional info: Overdose TECHNIQUE: Axial computed tomography images of the head/brain without intravenous contrast. All CT scans at this facility use one or more dose reduction techniques, viz.: automated exposure control; ma/kV adjustment per patient size (including targeted exams where dose is matched to indication; i.e. head); or iterative reconstruction technique. COMPARISON: No relevant prior studies available. FINDINGS: Limitations: Suboptimal positioning. Brain: [id number] atrophy. No intracranial hemorrhage. No mass. No definite edema. Ventricles: No hydrocephalus. Bones/joints: No acute fracture. Soft tissues: See below. Vasculature: Few small focus of air about cavernous sinus and extracranial soft tissues, nonspecific but possibly iatrogenic. Sinuses: No acute sinusitis. Mastoid air cells: No mastoid effusion. Orbits: Unremarkable as visualized. IMPRESSION: 1. No definite acute intracranial abnormality. 2. Incidental/non-acute findings are described above.
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
[2017-10-10] MEDS: Albumin Human 25% (12.5 gm/50 ml) IV SCH ×3 (22:15→23:52)
[2017-10-11] MEDS ORDERED: Phenylephrine 30 MG in Sodium Chloride 0.9% 250 ML IV PRN (00:10)
[2017-10-11] MEDS: Folic Acid 1 MG, Thiamine 100 MG, Multivitamin (MVI) 10 ML in Dextrose 5% In Water 1,00... IV ONE ×2 (00:15→01:16)
[2017-10-11 00:48] LABS: ABG ALLEN TEST POS; ARTERIAL BLOOD GAS HCO3 23.8 mmol/L (21-28); ARTERIAL BLOOD GAS HEMOGLOBIN 14.5 g/dL (11.7-17.4); ARTERIAL BLOOD GAS O2 SAT 95.9 % (95-98); ARTERIAL BLOOD GAS PCO2 35 mm/Hg (35-45); ARTERIAL BLOOD GAS PH 7.42 (7.35-7.45); ARTERIAL BLOOD GAS PO2 65 mm/Hg (80-100); ARTERIAL BLOOD GAS TCO2 23.8 mmol/L (22-28)
[2017-10-11 06:54] LABS: BASO % 0.3 % (0.0-2.0); EOS % 0.4 % (0.0-4.0); HEMOGLOBIN 15.2 g/dL (12.0-18.0); LYMPH % 13.2 % (20.0-40.0); MEAN CELL VOLUME 79.6 fL (80.0-94.0); MEAN CORPUSCULAR HEMOGLOBIN 26.2 pg (27.0-31.0); MEAN CORPUSCULAR HGB CONC 32.9 g/dL (33.0-37.0); MEAN PLATELET VOLUME 10.4 fL (7.2-11.7); MONO # 0.3 K/uL (0.0-0.8); NEUT # 6.2 K/uL (1.8-7.0); NEUT % 82.1 % (50.0-75.0); NRBC % 0.1 % (0.0-2.0); RBC 5.82 Mil/uL (4.40-5.90); WHITE BLOOD COUNT 7.5 K/uL (4.8-10.8)
[2017-10-11 07:20] LABS: ALBUMIN 3.4 g/dL (3.5-5.0); ALT/SGPT 27 U/L (21-72); AST/SGOT 39 U/L (17-59); BLOOD UREA NITROGEN 13 mg/dL (9-20); CALCIUM 7.3 mg/dl (8.6-10.4); GFR AFRICAN-AMERICAN > 60; GFR NON-AFRICAN AMERICAN > 60; MAGNESIUM 1.5 mg/dL (1.6-2.3)
[2017-10-11] MEDS ORDERED: Potassium Chloride 20 mEq ER Tab PO ONE (09:21)
[2017-10-11] MEDS: Enoxaparin 40 mg Syringe SC SCH (10:10)
--- NOTE | 2017-10-11 11:22 | CP.CCUPN ---
Addendum entered and electronically signed by Lizet Younger DO 10/11/17 13: 54: Ordered RPR and ESR t otest for syphilis Reorder UA for hematuria Original Note: <Lizet Younger - Last Filed: 10/11/17 11:20> CCU Subjective - Physician Review Subjective (Free Text): 10/11/17 11:20 Patient seen and examined at bedside. No acute events overnight per nursing. Patient doing well and much more awake today, however, he is complaining of headache, occasional dizziness, and mild abdominal pain. He says he is also having moderate right sided rib pain which is why he took all the tramadol last night before he was brought to the ED. When questioned about the verrucous masses on his abdomen, he says [place] and his doctor was not worried about them, but he knows little about them otherwise. CCU Objective - Vital Signs / Intake & Output Vital Signs (Last 4 hours): Vital Signs Temp Pulse Resp BP Pulse Ox 10/11/17 10:00 93/66 L 10/11/17 09:00 78 19 105/70 95 10/11/17 08:00 97.6 F 95/39 L Intake and Output (Last 8hrs): Intake & Output 10/10/17 10/11/17 10/11/17 22:59 06:59 14:59 Intake Total 2000 655 250 Output Total 650 1200 250 Balance 1350 -545 0 Weight 202 lb 0.3 oz Intake: IV 2000 Intake, IV Amount 655 250 Left Antecubital 580 240 Left Hand 0 0 Right 10 Right Antecubital 65 10 Output: Urine 650 1200 250 Urethral (Jim) 1200 250 Other: Voiding Method Indwelling Catheter # Bowel Movements 0 0 - Physical Exam Head: Positive for: Atraumatic, Normocephalic Pupils: Positive for: PERRL Extroacular Muscles: Positive for: EOMI Conjunctiva: Positive for: Normal Mouth: Positive for: Moist Mucous Membranes Respiratory/Chest: Positive for: Clear to Auscultation, Good Air Exchange, Tender to Palpation (right 7th-8th ribs). Negative for: Respiratory Distress, Accessory Muscle Use, Rales, Rhonchi Cardiovascular: Positive for: Regular Rate and Rhythm, Normal S1, S2 Abdomen: Positive for: Distention, Normal Bowel Sounds. Negative for: Tenderness, Peritoneal Signs Upper Extremity: Positive for: Normal Inspection Lower Extremity: Positive for: Normal Inspection Skin: Positive for: Warm, Dry, Normal Color, Other (verrucous masses over the lower abdoman/pelvic area). Negative for: Rashes Psychiatric: Positive for: Alert, Oriented x 3 - Medications Active Medications: Active Medications Generic Name Dose Route Start Last Admin Trade Name Freq PRN Reason Stop Dose Admin Enoxaparin Sodium 40 mg 10/11/17 10:00 10/11/17 10:10 Lovenox SC 40 mg DAILY SIMON Administration Phenylephrine HCl 30 mg/ 253 mls @ 5.05 mls/hr 10/11/17 00:10 10/11/17 01:14 Sodium Chloride IV 10 mcg/min .Q24H PRN 5.05 mls/hr TITRATE PER MD ORDER Administration Protocol 10 MCG/MIN Folic Acid 1 mg/ Thiamine HCl 1,011.2 mls @ 60 mls/hr 10/11/17 00:15 01:16 100 mg/ Multivitamins/Vitamin IV 10/11/17 17:06 60 mls/hr C 10 ml/ Dextrose .[id number] ONE Administration Ketorolac Tromethamine 30 mg 10/11/17 07:32 10/11/17 07:57 Toradol IVP 30 mg Q6 PRN Administration Pain, moderate (4-7) - Patient Studies Lab Studies: Lab Studies 10/11/17 10/11/17 10/11/17 Range/Units 06:41 06:41 00:37 WBC 7.5 (4.8-10.8) K/uL RBC 5.82 (4.40-5.90) Mil/uL Hgb 15.2 (12.0-18.0) g/dL Hct 46.3 (35.0-51.0) % MCV 79.6 L (80.0-94.0) fL MCH 26.2 L (27.0-31.0) pg MCHC 32.9 L (33.0-37.0) g/dL RDW 19.0 H (11.5-14.5) % Plt Count 114 L (130-400) K/uL MPV 10.4 (7.2-11.7) fL Neut % (Auto) 82.1 H (50.0-75.0) % Lymph % (Auto) 13.2 L (20.0-40.0) % [place] % (Auto) 4.0 (0.0-10.0) % Eos % (Auto) 0.4 (0.0-4.0) % Baso % (Auto) 0.3 (0.0-2.0) % Neut # 6.2 (1.8-7.0) K/uL Lymph # 1.0 (1.0-4.3) K/uL [place] # 0.3 (0.0-0.8) K/uL Eos # 0.0 (0.0-0.7) K/uL Baso # 0.0 (0.0-0.2) K/uL Puncture Site Rr pCO2 35 (35-45) mm/Hg pO2 65 L (80-100) mm/Hg HCO3 23.8 (21-28) mmol/L ABG pH 7.42 (7.35-7.45) ABG Total CO2 23.8 (22-28) mmol/L ABG O2 Saturation 95.9 (95-98) % ABG Base Excess -1.2 (-2.0-3.0) mmol/L ABG Hemoglobin 14.5 (11.7-17.4) g/dL ABG Carboxyhemoglobin 2.6 H (0.5-1.5) % POC ABG HHb (Measured) 3.9 (0.0-5.0) % ABG Methemoglobin 1.1 (0.0-3.0) % Maikel Test Pos ABG Potassium (3.6-5.2) mmol/L A-a O2 Difference mm/Hg Respiratory Index Hgb O2 Saturation 92.3 L (95.0-98.0) % Glucose (75-110) mg/dl Lactate (0.7-2.1) mmol/L Liter Flow 3.0 FiO2 % Sodium 131 L (132-148) mmol/L Potassium 4.2 (3.6-5.2) mmol/L Chloride 100 (98-107) mmol/L Carbon Dioxide 23 (22-30) mmol/L Anion Gap 11 (10-20) BUN 13 (9-20) mg/dL Creatinine 0.8 (0.8-1.5) mg/dL Est GFR ( Amer) > 60 Est GFR (Non-Af Amer) > 60 POC Glucose (mg/dL) (65-110) mg/dL Random Glucose 156 H (75-110) mg/dL Calcium 7.3 L (8.6-10.4) mg/dl Phosphorus 1.5 L (2.5-4.5) mg/dL Magnesium 1.5 L (1.6-2.3) mg/dL Total Bilirubin 2.0 H (0.2-1.3) mg/dL AST 39 (17-59) U/L ALT 27 (21-72) U/L Alkaline Phosphatase 123 (38-126) U/L Total Protein 7.0 (6.3-8.3) g/dL Albumin 3.4 L D (3.5-5.0) g/dL Globulin 3.6 (2.2-3.9) gm/dL Albumin/Globulin Ratio 1.0 (1.0-2.1) Arterial Blood Potassium (3.6-5.2) mmol/L Urine Color (YELLOW) Urine Clarity (Clear) Urine pH (5.0-8.0) Ur Specific [place] (1.003-1.030) Urine Protein (NEGATIVE) mg/dL Urine Glucose (UA) (Normal) mg/dL Urine Ketones (NEGATIVE) mg/dL Urine Blood (NEGATIVE) Urine Nitrate (NEGATIVE) Urine Bilirubin (NEGATIVE) Urine Urobilinogen (0.2-1.0) mg/dL Ur Leukocyte Esterase (Negative) Shine/uL Urine WBC (Auto) (0-5) /hpf Urine RBC (Auto) (0-3) /hpf Urine Bacteria (<OCC) Salicylates mg/dL 1 Urine Opiates Screen (NEGATIVE) Urine Methadone Screen (NEGATIVE) Acetaminophen (10.0-30.0) ug/mL Ur Barbiturates Screen (NEGATIVE) Ur Phencyclidine Scrn (NEGATIVE) Ur Amphetamines Screen (NEGATIVE) U Benzodiazepines Scrn (NEGATIVE) U Oth Cocaine Metabols (NEGATIVE) U Cannabinoids Screen (NEGATIVE) Alcohol, Quantitative (0-10) mg/dl 10/10/17 10/10/17 10/10/17 Range/Units 18:50 18:13 18:13 WBC (4.8-10.8) K/uL RBC (4.40-5.90) Mil/uL Hgb (12.0-18.0) g/dL Hct (35.0-51.0) % MCV (80.0-94.0) fL MCH (27.0-31.0) pg MCHC (33.0-37.0) g/dL RDW (11.5-14.5) % Plt Count (130-400) K/uL MPV (7.2-11.7) fL Neut % (Auto) (50.0-75.0) % Lymph % (Auto) (20.0-40.0) % [place] % (Auto) (0.0-10.0) % Eos % (Auto) (0.0-4.0) % Baso % (Auto) (0.0-2.0) % Neut # (1.8-7.0) K/uL Lymph # (1.0-4.3) K/uL [place] # (0.0-0.8) K/uL Eos # (0.0-0.7) K/uL Baso # (0.0-0.2) K/uL Puncture Site pCO2 (35-45) mm/Hg pO2 (80-100) mm/Hg HCO3 (21-28) mmol/L ABG pH (7.35-7.45) ABG Total CO2 (22-28) mmol/L ABG O2 Saturation (95-98) % ABG Base Excess (-2.0-3.0) mmol/L ABG Hemoglobin (11.7-17.4) g/dL ABG Carboxyhemoglobin (0.5-1.5) % POC ABG HHb (Measured) (0.0-5.0) % ABG Methemoglobin (0.0-3.0) % Maikel Test ABG Potassium (3.6-5.2) mmol/L A-a O2 Difference mm/Hg Respiratory Index Hgb O2 Saturation (95.0-98.0) % Glucose (75-110) mg/dl Lactate (0.7-2.1) mmol/L Liter Flow FiO2 % Sodium (132-148) mmol/L Potassium (3.6-5.2) mmol/L Chloride (98-107) mmol/L Carbon Dioxide (22-30) mmol/L Anion Gap (10-20) BUN (9-20) mg/dL Creatinine (0.8-1.5) mg/dL Est GFR ( Amer) Est GFR (Non-Af Amer) POC Glucose (mg/dL) (65-110) mg/dL Random Glucose (75-110) mg/dL Calcium (8.6-10.4) mg/dl Phosphorus 1.6 L (2.5-4.5) mg/dL Magnesium 1.1 L (1.6-2.3) mg/dL Total Bilirubin (0.2-1.3) mg/dL AST (17-59) U/L ALT (21-72) U/L Alkaline Phosphatase (38-126) U/L Total Protein (6.3-8.3) g/dL Albumin (3.5-5.0) g/dL Globulin (2.2-3.9) gm/dL Albumin/Globulin Ratio (1.0-2.1) Arterial Blood Potassium (3.6-5.2) mmol/L Urine Color Yellow (YELLOW) Urine Clarity Hazy (Clear) Urine pH 5.0 (5.0-8.0) Ur Specific [place] 1.012 (1.003-1.030) Urine Protein Negative (NEGATIVE) mg/dL Urine Glucose (UA) Normal (Normal) mg/dL Urine Ketones Negative (NEGATIVE) mg/dL Urine Blood 2+ H (NEGATIVE) Urine Nitrate Negative (NEGATIVE) Urine Bilirubin Negative (NEGATIVE) Urine Urobilinogen Normal (0.2-1.0) mg/dL Ur Leukocyte Esterase Neg (Negative) Shine/uL Urine WBC (Auto) 2 (0-5) /hpf Urine RBC (Auto) 15 H (0-3) /hpf Urine Bacteria Rare (<OCC) Salicylates mg/dL 1 Urine Opiates Screen Positive H (NEGATIVE) Urine Methadone Screen Negative (NEGATIVE) Acetaminophen (10.0-30.0) ug/mL Ur Barbiturates Screen Negative (NEGATIVE) Ur Phencyclidine Scrn Negative (NEGATIVE) Ur Amphetamines Screen Negative (NEGATIVE) U Benzodiazepines Scrn Negative (NEGATIVE) U Oth Cocaine Metabols Negative (NEGATIVE) U Cannabinoids Screen Negative (NEGATIVE) Alcohol, Quantitative (0-10) mg/dl 10/10/17 10/10/17 10/10/17 Range/Units 17:30 16:57 16:02 WBC (4.8-10.8) K/uL RBC (4.40-5.90) Mil/uL Hgb (12.0-18.0) g/dL Hct (35.0-51.0) % MCV (80.0-94.0) fL MCH (27.0-31.0) pg MCHC (33.0-37.0) g/dL RDW (11.5-14.5) % Plt Count (130-400) K/uL MPV (7.2-11.7) fL Neut % (Auto) (50.0-75.0) % Lymph % (Auto) (20.0-40.0) % [place] % (Auto) (0.0-10.0) % Eos % (Auto) (0.0-4.0) % Baso % (Auto) (0.0-2.0) % Neut # (1.8-7.0) K/uL Lymph # (1.0-4.3) K/uL [place] # (0.0-0.8) K/uL Eos # (0.0-0.7) K/uL Baso # (0.0-0.2) K/uL Puncture Site Rra pCO2 36 (35-45) mm/Hg pO2 85 (80-100) mm/Hg HCO3 23.3 (21-28) mmol/L ABG pH 7.40 (7.35-7.45) ABG Total CO2 23.4 (22-28) mmol/L ABG O2 Saturation 98.5 H (95-98) % ABG Base Excess -2.0 (-2.0-3.0) mmol/L ABG Hemoglobin (11.7-17.4) g/dL ABG Carboxyhemoglobin (0.5-1.5) % POC ABG HHb (Measured) (0.0-5.0) % ABG Methemoglobin (0.0-3.0) % Maikel Test Pos ABG Potassium 3.5 L (3.6-5.2) mmol/L A-a O2 Difference 155.0 mm/Hg Respiratory Index 1.8 Hgb O2 Saturation (95.0-98.0) % Glucose 142 H (75-110) mg/dl Lactate 2.4 H (0.7-2.1) mmol/L Liter Flow FiO2 40.0 % Sodium 135.0 134 (132-148) mmol/L Potassium 3.0 L (3.6-5.2) mmol/L Chloride 102.0 113 H (98-107) mmol/L Carbon Dioxide 17 L (22-30) mmol/L Anion Gap 7 L (10-20) BUN 13 (9-20) mg/dL Creatinine 0.7 L (0.8-1.5) mg/dL Est GFR ( Amer) > 60 Est GFR (Non-Af Amer) > 60 POC Glucose (mg/dL) 99 (65-110) mg/dL Random Glucose 57 L (75-110) mg/dL Calcium 4.8 L* D (8.6-10.4) mg/dl Phosphorus (2.5-4.5) mg/dL Magnesium (1.6-2.3) mg/dL Total Bilirubin 1.1 (0.2-1.3) mg/dL AST 43 (17-59) U/L ALT 22 (21-72) U/L Alkaline Phosphatase 76 (38-126) U/L Total Protein 4.4 L (6.3-8.3) g/dL Albumin 1.9 L D (3.5-5.0) g/dL Globulin 2.5 (2.2-3.9) gm/dL Albumin/Globulin Ratio 0.7 L (1.0-2.1) Arterial Blood Potassium 3.5 L (3.6-5.2) mmol/L Urine Color (YELLOW) Urine Clarity (Clear) Urine pH (5.0-8.0) Ur Specific [place] (1.003-1.030) Urine Protein (NEGATIVE) mg/dL Urine Glucose (UA) (Normal) mg/dL Urine Ketones (NEGATIVE) mg/dL Urine Blood (NEGATIVE) Urine Nitrate (NEGATIVE) Urine Bilirubin (NEGATIVE) Urine Urobilinogen (0.2-1.0) mg/dL Ur Leukocyte Esterase (Negative) Shine/uL Urine WBC (Auto) (0-5) /hpf Urine RBC (Auto) (0-3) /hpf Urine Bacteria (<OCC) Salicylates mg/dL 1 Urine Opiates Screen (NEGATIVE) Urine Methadone Screen (NEGATIVE) Acetaminophen (10.0-30.0) ug/mL Ur Barbiturates Screen (NEGATIVE) Ur Phencyclidine Scrn (NEGATIVE) Ur Amphetamines Screen (NEGATIVE) U Benzodiazepines Scrn (NEGATIVE) U Oth Cocaine Metabols (NEGATIVE) U Cannabinoids Screen (NEGATIVE) Alcohol, Quantitative 56 H (0-10) mg/dl 10/10/17 10/10/17 10/10/17 Range/Units 15:14 15:13 15:13 WBC 9.9 (4.8-10.8) K/uL RBC 5.87 (4.40-5.90) Mil/uL Hgb 15.1 (12.0-18.0) g/dL Hct 46.6 (35.0-51.0) % MCV 79.5 L D (80.0-94.0) fL MCH 25.8 L (27.0-31.0) pg MCHC 32.4 L (33.0-37.0) g/dL RDW 19.0 H (11.5-14.5) % Plt Count 126 L (130-400) K/uL MPV 9.7 (7.2-11.7) fL Neut % (Auto) 49.9 L (50.0-75.0) % Lymph % (Auto) 31.2 (20.0-40.0) % [place] % (Auto) 13.7 H (0.0-10.0) % Eos % (Auto) 4.6 H (0.0-4.0) % Baso % (Auto) 0.6 (0.0-2.0) % Neut # 4.9 (1.8-7.0) K/uL Lymph # 3.1 (1.0-4.3) K/uL [place] # 1.4 H (0.0-0.8) K/uL Eos # 0.5 (0.0-0.7) K/uL Baso # 0.1 (0.0-0.2) K/uL Puncture Site pCO2 (35-45) mm/Hg pO2 (80-100) mm/Hg HCO3 (21-28) mmol/L ABG pH (7.35-7.45) ABG Total CO2 (22-28) mmol/L ABG O2 Saturation (95-98) % ABG Base Excess (-2.0-3.0) mmol/L ABG Hemoglobin (11.7-17.4) g/dL ABG Carboxyhemoglobin (0.5-1.5) % POC ABG HHb (Measured) (0.0-5.0) % ABG Methemoglobin (0.0-3.0) % Maikel Test ABG Potassium (3.6-5.2) mmol/L A-a O2 Difference mm/Hg Respiratory Index Hgb O2 Saturation (95.0-98.0) % Glucose (75-110) mg/dl Lactate (0.7-2.1) mmol/L Liter Flow FiO2 % Sodium (132-148) mmol/L Potassium (3.6-5.2) mmol/L Chloride (98-107) mmol/L Carbon Dioxide (22-30) mmol/L Anion Gap (10-20) BUN (9-20) mg/dL Creatinine (0.8-1.5) mg/dL Est GFR ( Amer) Est GFR (Non-Af Amer) POC Glucose (mg/dL) 121 H (65-110) mg/dL Random Glucose (75-110) mg/dL Calcium (8.6-10.4) mg/dl Phosphorus (2.5-4.5) mg/dL Magnesium (1.6-2.3) mg/dL Total Bilirubin (0.2-1.3) mg/dL AST (17-59) U/L ALT (21-72) U/L Alkaline Phosphatase (38-126) U/L Total Protein (6.3-8.3) g/dL Albumin (3.5-5.0) g/dL Globulin (2.2-3.9) gm/dL Albumin/Globulin Ratio (1.0-2.1) Arterial Blood Potassium (3.6-5.2) mmol/L Urine Color (YELLOW) Urine Clarity (Clear) Urine pH (5.0-8.0) Ur Specific [place] (1.003-1.030) Urine Protein (NEGATIVE) mg/dL Urine Glucose (UA) (Normal) mg/dL Urine Ketones (NEGATIVE) mg/dL Urine Blood (NEGATIVE) Urine Nitrate (NEGATIVE) Urine Bilirubin (NEGATIVE) Urine Urobilinogen (0.2-1.0) mg/dL Ur Leukocyte Esterase (Negative) Shine/uL Urine WBC (Auto) (0-5) /hpf Urine RBC (Auto) (0-3) /hpf Urine Bacteria (<OCC) Salicylates < 1.0 mg/dL 1 Urine Opiates Screen (NEGATIVE) Urine Methadone Screen (NEGATIVE) Acetaminophen < 10.0 L (10.0-30.0) ug/mL Ur Barbiturates Screen (NEGATIVE) Ur Phencyclidine Scrn (NEGATIVE) Ur Amphetamines Screen (NEGATIVE) U Benzodiazepines Scrn (NEGATIVE) U Oth Cocaine Metabols (NEGATIVE) U Cannabinoids Screen (NEGATIVE) Alcohol, Quantitative (0-10) mg/dl Laboratory Results - last 24 hr 10/10/17 10/10/17 10/10/17 15:13 15:13 15:14 WBC 9.9 RBC 5.87 Hgb 15.1 Hct 46.6 MCV 79.5 L D MCH 25.8 L MCHC 32.4 L RDW 19.0 H Plt Count 126 L MPV 9.7 Neut % (Auto) 49.9 L Lymph % (Auto) 31.2 [place] % (Auto) 13.7 H Eos % (Auto) 4.6 H Baso % (Auto) 0.6 Neut # 4.9 Lymph # 3.1 [place] # 1.4 H Eos # 0.5 Baso # 0.1 Puncture Site pCO2 pO2 HCO3 ABG pH ABG Total CO2 ABG O2 Saturation ABG Base Excess ABG Hemoglobin ABG Carboxyhemoglobin POC ABG HHb (Measured) ABG Methemoglobin Maikel Test ABG Potassium A-a O2 Difference Respiratory Index Hgb O2 Saturation Glucose Lactate Liter Flow FiO2 Sodium Potassium Chloride Carbon Dioxide Anion Gap BUN Creatinine Est GFR ( Amer) Est GFR (Non-Af Amer) POC Glucose (mg/dL) 121 H Random Glucose Calcium Phosphorus Magnesium Total Bilirubin AST ALT Alkaline Phosphatase Total Protein Albumin Globulin Albumin/Globulin Ratio Arterial Blood Potassium Urine Color Urine Clarity Urine pH Ur Specific [place] Urine Protein Urine Glucose (UA) Urine Ketones Urine Blood Urine Nitrate Urine Bilirubin Urine Urobilinogen Ur Leukocyte Esterase Urine WBC (Auto) Urine RBC (Auto) Urine Bacteria Salicylates < 1.0 Urine Opiates Screen Urine Methadone Screen Acetaminophen < 10.0 L Ur Barbiturates Screen Ur Phencyclidine Scrn Ur Amphetamines Screen U Benzodiazepines Scrn U Oth Cocaine Metabols U Cannabinoids Screen Alcohol, Quantitative 10/10/17 10/10/17 10/10/17 16:02 16:57 17:30 WBC RBC Hgb Hct MCV MCH MCHC RDW Plt Count MPV Neut % (Auto) Lymph % (Auto) [place] % (Auto) Eos % (Auto) Baso % (Auto) Neut # Lymph # [place] # Eos # Baso # Puncture Site Rra pCO2 36 pO2 85 HCO3 23.3 ABG pH 7.40 ABG Total CO2 23.4 ABG O2 Saturation 98.5 H ABG Base Excess -2.0 ABG Hemoglobin ABG Carboxyhemoglobin POC ABG HHb (Measured) ABG Methemoglobin Maikel Test Pos ABG Potassium 3.5 L A-a O2 Difference 155.0 Respiratory Index 1.8 Hgb O2 Saturation Glucose 142 H Lactate 2.4 H Liter Flow FiO2 40.0 Sodium 134 135.0 Potassium 3.0 L Chloride 113 H 102.0 Carbon Dioxide 17 L Anion Gap 7 L BUN 13 Creatinine 0.7 L Est GFR ( Amer) > 60 Est GFR (Non-Af Amer) > 60 POC Glucose (mg/dL) 99 Random Glucose 57 L Calcium 4.8 L* D Phosphorus Magnesium Total Bilirubin 1.1 AST 43 ALT 22 Alkaline Phosphatase 76 Total Protein 4.4 L Albumin 1.9 L D Globulin 2.5 Albumin/Globulin Ratio 0.7 L Arterial Blood Potassium 3.5 L Urine Color Urine Clarity Urine pH Ur Specific [place] Urine Protein Urine Glucose (UA) Urine Ketones Urine Blood Urine Nitrate Urine Bilirubin Urine Urobilinogen Ur Leukocyte Esterase Urine WBC (Auto) Urine RBC (Auto) Urine Bacteria Salicylates Urine Opiates Screen Urine Methadone Screen Acetaminophen Ur Barbiturates Screen Ur Phencyclidine Scrn Ur Amphetamines Screen U Benzodiazepines Scrn U Oth Cocaine Metabols U Cannabinoids Screen Alcohol, Quantitative 56 H 10/10/17 10/10/17 10/10/17 18:13 18:13 18:50 WBC RBC Hgb Hct MCV MCH MCHC RDW Plt Count MPV Neut % (Auto) Lymph % (Auto) [place] % (Auto) Eos % (Auto) Baso % (Auto) Neut # Lymph # [place] # Eos # Baso # Puncture Site pCO2 pO2 HCO3 ABG pH ABG Total CO2 ABG O2 Saturation ABG Base Excess ABG Hemoglobin ABG Carboxyhemoglobin POC ABG HHb (Measured) ABG Methemoglobin Maikel Test ABG Potassium A-a O2 Difference Respiratory Index Hgb O2 Saturation Glucose Lactate Liter Flow FiO2 Sodium Potassium Chloride Carbon Dioxide Anion Gap BUN Creatinine Est GFR ( Amer) Est GFR (Non-Af Amer) POC Glucose (mg/dL) Random Glucose Calcium Phosphorus 1.6 L Magnesium 1.1 L Total Bilirubin AST ALT Alkaline Phosphatase Total Protein Albumin Globulin Albumin/Globulin Ratio Arterial Blood Potassium Urine Color Yellow Urine Clarity Hazy Urine pH 5.0 Ur Specific [place] 1.012 Urine Protein Negative Urine Glucose (UA) Normal Urine Ketones Negative Urine Blood 2+ H Urine Nitrate Negative Urine Bilirubin Negative Urine Urobilinogen Normal Ur Leukocyte Esterase Neg Urine WBC (Auto) 2 Urine RBC (Auto) 15 H Urine Bacteria Rare Salicylates Urine Opiates Screen Positive H Urine Methadone Screen Negative Acetaminophen Ur Barbiturates Screen Negative Ur Phencyclidine Scrn Negative Ur Amphetamines Screen Negative U Benzodiazepines Scrn Negative U Oth Cocaine Metabols Negative U Cannabinoids Screen Negative Alcohol, Quantitative 10/11/17 10/11/17 10/11/17 00:37 06:41 06:41 WBC 7.5 RBC 5.82 Hgb 15.2 Hct 46.3 MCV 79.6 L MCH 26.2 L MCHC 32.9 L RDW 19.0 H Plt Count 114 L MPV 10.4 Neut % (Auto) 82.1 H Lymph % (Auto) 13.2 L [place] % (Auto) 4.0 Eos % (Auto) 0.4 Baso % (Auto) 0.3 Neut # 6.2 Lymph # 1.0 [place] # 0.3 Eos # 0.0 Baso # 0.0 Puncture Site Rr pCO2 35 pO2 65 L HCO3 23.8 ABG pH 7.42 ABG Total CO2 23.8 ABG O2 Saturation 95.9 ABG Base Excess -1.2 ABG Hemoglobin 14.5 ABG Carboxyhemoglobin 2.6 H POC ABG HHb (Measured) 3.9 ABG Methemoglobin 1.1 Maikel Test Pos ABG Potassium A-a O2 Difference Respiratory Index Hgb O2 Saturation 92.3 L Glucose Lactate Liter Flow 3.0 FiO2 Sodium 131 L Potassium 4.2 Chloride 100 Carbon Dioxide 23 Anion Gap 11 BUN 13 Creatinine 0.8 Est GFR ( Amer) > 60 Est GFR (Non-Af Amer) > 60 POC Glucose (mg/dL) Random Glucose 156 H Calcium 7.3 L Phosphorus 1.5 L Magnesium 1.5 L Total Bilirubin 2.0 H AST 39 ALT 27 Alkaline Phosphatase 123 Total Protein 7.0 Albumin 3.4 L D Globulin 3.6 Albumin/Globulin Ratio 1.0 Arterial Blood Potassium Urine Color Urine Clarity Urine pH Ur Specific [place] Urine Protein Urine Glucose (UA) Urine Ketones Urine Blood Urine Nitrate Urine Bilirubin Urine Urobilinogen Ur Leukocyte Esterase Urine WBC (Auto) Urine RBC (Auto) Urine Bacteria Salicylates Urine Opiates Screen Urine Methadone Screen Acetaminophen Ur Barbiturates Screen Ur Phencyclidine Scrn Ur Amphetamines Screen U Benzodiazepines Scrn U Oth Cocaine Metabols U Cannabinoids Screen Alcohol, Quantitative EKG/Cardiology Studies: Cardiology / EKG Studies 10/10/17 14:54 EKG [ELECTROCARDIOGRAM] Stat Comment: Mode Of Transportation: PORTABLE Reason For Exam: AMS 10/10/17 16:47 EKG [ELECTROCARDIOGRAM] Stat Comment: Mode Of Transportation: PORTABLE Reason For Exam: AMS Fingerstick Blood Sugar Results: 99 Review of Systems - Review of Systems All systems: reviewed and no additional remarkable complaints except (as per HPI ) Critical Care Progress Note - Nutrition Nutrition: Nutrition Category Date Time Status Regular Diet [DIET] Diets 10/11/17 Lunch Active Assessment/Plan - Assessment and Plan (Free Text) Assessment: Pt is a 51 yo Male PMHx of asthma, COPD, alcohol abuse, normal cath/normal EF in 06/17, HTN anxiety, chronic pain, gastritis, s/p mechanical fall 4 days ago, brought by EMS for possible drugs overdose, alcohol intoxication and AMS. Pt received 2mg of narcan on the field and duoneb in the ER. Pt in ICU for AMS and possible drug overdose. Plan: Disposition: Patient stable for transfer to regular bed Neuro: AMS, drug overdose, ETOH and headache A&Ox3, sating at 95% on 2L Nasal cannula GCS: 15 on no mechanical support Tox screen: +opiates, alc 56 10/10/17 CT head w/out contrast: no definite acute intracranial abnormality. 10/10/17 Consult psych for eval, consider detexo for pt. Services previously used by pt in 12/14/15 Meds: 10/10/17 Narcan 2mg 10/11/17 folic acid 1mg/ Thiamine HCL 100mg/ Multivitamins /vitamin C 10 ml in dextrose 1,011.2 mls @ 60 mls/hr IV Q12H 52M one and ketorolac 30 mg IVP Q6 for pain. D/C NPO order due to pt AMS. Start regular diet Cardio: Hypotension: improving HR: 74 BP: 105/78 from 83/54 on arrival 10/10/17 EKG: Normal sinus rhythm, Right superior axis deviation, Incomplete right bundle branch block, Right ventricular hypertrophy, Inferior infarct, age undetermined, Anterior infarct, age undetermined, ST & T wave abnormality, consider lateral ischemia, Abnormal ECG D/C: phenylephrine Respiratory: SOB: resolved O2 sat: 95 on 2L nasal cannula ABG: pH 7.4 /pCO2 95 / pO2 65 /HCO3 23.8 10/10/17 Cxray: cardiomegaly, central vascular and pulmonary venous congestion. 10/10/17 Meds: narcan solu-medrol 80 mg IVP, Magnesium sulfate/dextrose 1gm in 100 mls, 10/11/17: CT chest pending result Renal: no acute problem I: 2655ml IV O: 1850 ml Jim 24H Balance: + 805 ml BUN/Cr: 13/0.8 10/11/17 D/C jim Fluids, electrolytes, nutrition Electrolytes WNL except for mentioned below: Na: 131 Calcium: 7.3 Ma.5 Phos: 1.5 Albumin:3.4 Fluids: folic acid 1mg/ Thiamine HCL 100mg/ Multivitamins /vitamin C 10 ml in dextrose 1,011.2 mls @ 60 mls/hr IV Q12H 52M one Nutrition: regular diet 10/11/17 Meds: repelt mag and phos. Infectious disease: no acute problem Hematology: no acute problem H&H: 15.2/46.3 Plt: 114 Follow H&H in am GI: 1- Constipation, last BM 4 days ago, opiate abuse vs overdose 10/11/17 med: colace 100mg BID 2- RUQ vs rib pain AST/ALT: 39/27 Tbili: 2.0 10/11/17 CT scan pending Prophylaxis GI: not recommended at the time DVT: lovenox 40 mg SC daily SIMON, SCD <Elijah Hartman - Last Filed: 10/11/17 19:04> CCU Objective - Vital Signs / Intake & Output Vital Signs (Last 4 hours): Vital Signs Pulse Resp BP 10/11/17 18:20 76 21 93/68 L 10/11/17 17:00 78 17 89/63 L 10/11/17 16:00 90/65 L Intake and Output (Last 8hrs): Intake & Output 10/11/17 10/11/17 10/11/17 06:59 14:59 22:59 Intake Total 655 490 240 Output Total 1200 600 Balance -545 -110 240 Weight 202 lb 0.3 oz Intake: Intake, IV Amount 655 490 240 Left Antecubital 580 480 240 Left Hand 0 0 Right 10 Right Antecubital 65 10 Output: Urine 1200 600 Urethral (Jim) 1200 600 Other: Voiding Method Indwelling Catheter # Bowel Movements 0 0 - Medications Active Medications: Active Medications Generic Name Dose Route Start Last Admin Trade Name Freq PRN Reason Stop Dose Admin Enoxaparin Sodium 40 mg 10/11/17 10:00 10/11/17 10:10 Lovenox SC 40 mg DAILY SIMON Administration Phenylephrine HCl 30 mg/ 253 mls @ 5.05 mls/hr 10/11/17 00:10 10/11/17 01:14 Sodium Chloride IV 10 mcg/min .Q24H PRN 5.05 mls/hr TITRATE PER MD ORDER Administration Protocol 10 MCG/MIN Ketorolac Tromethamine 30 mg 10/11/17 07:32 10/11/17 14:22 Toradol IVP 30 mg Q6 PRN Administration Pain, moderate (4-7) Pneumococcal Polyvalent Vaccine 0.5 ml 10/14/17 16:32 Pneumovax 23 Vaccine IM 10/14/17 16:33 .ONCE ONE - Patient Studies Lab Studies: Microbiology Studies 10/10/17 17:38 Urine Culture - Final Urine,Jim No Growth (<1,000 CFU/ML) Lab Studies 10/11/17 10/11/17 10/11/17 Range/Units 14:52 14:52 14:52 WBC (4.8-10.8) K/uL RBC (4.40-5.90) Mil/uL Hgb (12.0-18.0) g/dL Hct (35.0-51.0) % MCV (80.0-94.0) fL MCH (27.0-31.0) pg MCHC (33.0-37.0) g/dL RDW (11.5-14.5) % Plt Count (130-400) K/uL MPV (7.2-11.7) fL Neut % (Auto) (50.0-75.0) % Lymph % (Auto) (20.0-40.0) % [place] % (Auto) (0.0-10.0) % Eos % (Auto) (0.0-4.0) % Baso % (Auto) (0.0-2.0) % Neut # (1.8-7.0) K/uL Lymph # (1.0-4.3) K/uL [place] # (0.0-0.8) K/uL Eos # (0.0-0.7) K/uL Baso # (0.0-0.2) K/uL ESR 2 (0-15) mm/hr Puncture Site pCO2 (35-45) mm/Hg pO2 (80-100) mm/Hg HCO3 (21-28) mmol/L ABG pH (7.35-7.45) ABG Total CO2 (22-28) mmol/L ABG O2 Saturation (95-98) % ABG Base Excess (-2.0-3.0) mmol/L ABG Hemoglobin (11.7-17.4) g/dL ABG Carboxyhemoglobin (0.5-1.5) % POC ABG HHb (Measured) (0.0-5.0) % ABG Methemoglobin (0.0-3.0) % Maikel Test Hgb O2 Saturation (95.0-98.0) % Liter Flow Sodium (132-148) mmol/L Potassium (3.6-5.2) mmol/L Chloride (98-107) mmol/L Carbon Dioxide (22-30) mmol/L Anion Gap (10-20) BUN (9-20) mg/dL Creatinine (0.8-1.5) mg/dL Est GFR ( Amer) Est GFR (Non-Af Amer) Random Glucose (75-110) mg/dL Calcium (8.6-10.4) mg/dl Phosphorus (2.5-4.5) mg/dL Magnesium (1.6-2.3) mg/dL Total Bilirubin (0.2-1.3) mg/dL AST (17-59) U/L ALT (21-72) U/L Alkaline Phosphatase (38-126) U/L Total Protein (6.3-8.3) g/dL Albumin (3.5-5.0) g/dL Globulin (2.2-3.9) gm/dL Albumin/Globulin Ratio (1.0-2.1) Urine Color Dark yellow (YELLOW) Urine Clarity Cloudy (Clear) Urine pH 6.0 (5.0-8.0) Ur Specific [place] > 1.030 H (1.003-1.030) Urine Protein 2+ H (NEGATIVE) mg/dL Urine Glucose (UA) Negative (Normal) mg/dL Urine Ketones 1+ H (NEGATIVE) mg/dL Urine Blood 3+ H (NEGATIVE) Urine Nitrate Negative (NEGATIVE) Urine Bilirubin 2+ H (NEGATIVE) Urine Urobilinogen 1.0 (0.2-1.0) mg/dL Ur Leukocyte Esterase Negative (Negative) Shine/uL Urine WBC (Auto) 8 H (0-5) /hpf Urine RBC (Auto) 2024 H (0-3) /hpf Ur Squamous Epith Cells 1 (0-5) /hpf Urine Bacteria (<OCC) Hyaline Casts 11-20 H (0-2) /lpf RPR Nonreactive (NONREACTIVE) 10/11/17 10/11/17 10/11/17 Range/Units 06:41 06:41 00:37 WBC 7.5 (4.8-10.8) K/uL RBC 5.82 (4.40-5.90) Mil/uL Hgb 15.2 (12.0-18.0) g/dL Hct 46.3 (35.0-51.0) % MCV 79.6 L (80.0-94.0) fL MCH 26.2 L (27.0-31.0) pg MCHC 32.9 L (33.0-37.0) g/dL RDW 19.0 H (11.5-14.5) % Plt Count 114 L (130-400) K/uL MPV 10.4 (7.2-11.7) fL Neut % (Auto) 82.1 H (50.0-75.0) % Lymph % (Auto) 13.2 L (20.0-40.0) % [place] % (Auto) 4.0 (0.0-10.0) % Eos % (Auto) 0.4 (0.0-4.0) % Baso % (Auto) 0.3 (0.0-2.0) % Neut # 6.2 (1.8-7.0) K/uL Lymph # 1.0 (1.0-4.3) K/uL [place] # 0.3 (0.0-0.8) K/uL Eos # 0.0 (0.0-0.7) K/uL Baso # 0.0 (0.0-0.2) K/uL ESR (0-15) mm/hr Puncture Site Rr pCO2 35 (35-45) mm/Hg pO2 65 L (80-100) mm/Hg HCO3 23.8 (21-28) mmol/L ABG pH 7.42 (7.35-7.45) ABG Total CO2 23.8 (22-28) mmol/L ABG O2 Saturation 95.9 (95-98) % ABG Base Excess -1.2 (-2.0-3.0) mmol/L ABG Hemoglobin 14.5 (11.7-17.4) g/dL ABG Carboxyhemoglobin 2.6 H (0.5-1.5) % POC ABG HHb (Measured) 3.9 (0.0-5.0) % ABG Methemoglobin 1.1 (0.0-3.0) % Maikel Test Pos Hgb O2 Saturation 92.3 L (95.0-98.0) % Liter Flow 3.0 Sodium 131 L (132-148) mmol/L Potassium 4.2 (3.6-5.2) mmol/L Chloride 100 (98-107) mmol/L Carbon Dioxide 23 (22-30) mmol/L Anion Gap 11 (10-20) BUN 13 (9-20) mg/dL Creatinine 0.8 (0.8-1.5) mg/dL Est GFR ( Amer) > 60 Est GFR (Non-Af Amer) > 60 Random Glucose 156 H (75-110) mg/dL Calcium 7.3 L (8.6-10.4) mg/dl Phosphorus 1.5 L (2.5-4.5) mg/dL Magnesium 1.5 L (1.6-2.3) mg/dL Total Bilirubin 2.0 H (0.2-1.3) mg/dL AST 39 (17-59) U/L ALT 27 (21-72) U/L Alkaline Phosphatase 123 (38-126) U/L Total Protein 7.0 (6.3-8.3) g/dL Albumin 3.4 L D (3.5-5.0) g/dL Globulin 3.6 (2.2-3.9) gm/dL Albumin/Globulin Ratio 1.0 (1.0-2.1) Urine Color (YELLOW) Urine Clarity (Clear) Urine pH (5.0-8.0) Ur Specific [place] (1.003-1.030) Urine Protein (NEGATIVE) mg/dL Urine Glucose (UA) (Normal) mg/dL Urine Ketones (NEGATIVE) mg/dL Urine Blood (NEGATIVE) Urine Nitrate (NEGATIVE) Urine Bilirubin (NEGATIVE) Urine Urobilinogen (0.2-1.0) mg/dL Ur Leukocyte Esterase (Negative) Shine/uL Urine WBC (Auto) (0-5) /hpf Urine RBC (Auto) (0-3) /hpf Ur Squamous Epith Cells (0-5) /hpf Urine Bacteria (<OCC) Hyaline Casts (0-2) /lpf RPR (NONREACTIVE) 10/10/17 Range/Units 18:50 WBC (4.8-10.8) K/uL RBC (4.40-5.90) Mil/uL Hgb (12.0-18.0) g/dL Hct (35.0-51.0) % MCV (80.0-94.0) fL MCH (27.0-31.0) pg MCHC (33.0-37.0) g/dL RDW (11.5-14.5) % Plt Count (130-400) K/uL MPV (7.2-11.7) fL Neut % (Auto) (50.0-75.0) % Lymph % (Auto) (20.0-40.0) % [place] % (Auto) (0.0-10.0) % Eos % (Auto) (0.0-4.0) % Baso % (Auto) (0.0-2.0) % Neut # (1.8-7.0) K/uL Lymph # (1.0-4.3) K/uL [place] # (0.0-0.8) K/uL Eos # (0.0-0.7) K/uL Baso # (0.0-0.2) K/uL ESR (0-15) mm/hr Puncture Site pCO2 (35-45) mm/Hg pO2 (80-100) mm/Hg HCO3 (21-28) mmol/L ABG pH (7.35-7.45) ABG Total CO2 (22-28) mmol/L ABG O2 Saturation (95-98) % ABG Base Excess (-2.0-3.0) mmol/L ABG Hemoglobin (11.7-17.4) g/dL ABG Carboxyhemoglobin (0.5-1.5) % POC ABG HHb (Measured) (0.0-5.0) % ABG Methemoglobin (0.0-3.0) % Maikel Test Hgb O2 Saturation (95.0-98.0) % Liter Flow Sodium (132-148) mmol/L Potassium (3.6-5.2) mmol/L Chloride (98-107) mmol/L Carbon Dioxide (22-30) mmol/L Anion Gap (10-20) BUN (9-20) mg/dL Creatinine (0.8-1.5) mg/dL Est GFR ( Amer) Est GFR (Non-Af Amer) Random Glucose (75-110) mg/dL Calcium (8.6-10.4) mg/dl Phosphorus (2.5-4.5) mg/dL Magnesium (1.6-2.3) mg/dL Total Bilirubin (0.2-1.3) mg/dL AST (17-59) U/L ALT (21-72) U/L Alkaline Phosphatase (38-126) U/L Total Protein (6.3-8.3) g/dL Albumin (3.5-5.0) g/dL Globulin (2.2-3.9) gm/dL Albumin/Globulin Ratio (1.0-2.1) Urine Color Yellow (YELLOW) Urine Clarity Hazy (Clear) Urine pH 5.0 (5.0-8.0) Ur Specific [place] 1.012 (1.003-1.030) Urine Protein Negative (NEGATIVE) mg/dL Urine Glucose (UA) Normal (Normal) mg/dL Urine Ketones Negative (NEGATIVE) mg/dL Urine Blood 2+ H (NEGATIVE) Urine Nitrate Negative (NEGATIVE) Urine Bilirubin Negative (NEGATIVE) Urine Urobilinogen Normal (0.2-1.0) mg/dL Ur Leukocyte Esterase Neg (Negative) Shine/uL Urine WBC (Auto) 2 (0-5) /hpf Urine RBC (Auto) 15 H (0-3) /hpf Ur Squamous Epith Cells (0-5) /hpf Urine Bacteria Rare (<OCC) Hyaline Casts (0-2) /lpf RPR (NONREACTIVE) Laboratory Results - last 24 hr 10/10/17 10/11/17 10/11/17 18:50 00:37 06:41 WBC 7.5 RBC 5.82 Hgb 15.2 Hct 46.3 MCV 79.6 L MCH 26.2 L MCHC 32.9 L RDW 19.0 H Plt Count 114 L MPV 10.4 Neut % (Auto) 82.1 H Lymph % (Auto) 13.2 L [place] % (Auto) 4.0 Eos % (Auto) 0.4 Baso % (Auto) 0.3 Neut # 6.2 Lymph # 1.0 [place] # 0.3 Eos # 0.0 Baso # 0.0 ESR Puncture Site Rr pCO2 35 pO2 65 L HCO3 23.8 ABG pH 7.42 ABG Total CO2 23.8 ABG O2 Saturation 95.9 ABG Base Excess -1.2 ABG Hemoglobin 14.5 ABG Carboxyhemoglobin 2.6 H POC ABG HHb (Measured) 3.9 ABG Methemoglobin 1.1 Maikel Test Pos Hgb O2 Saturation 92.3 L Liter Flow 3.0 Sodium Potassium Chloride Carbon Dioxide Anion Gap BUN Creatinine Est GFR ( Amer) Est GFR (Non-Af Amer) Random Glucose Calcium Phosphorus Magnesium Total Bilirubin AST ALT Alkaline Phosphatase Total Protein Albumin Globulin Albumin/Globulin Ratio Urine Color Yellow Urine Clarity Hazy Urine pH 5.0 Ur Specific [place] 1.012 Urine Protein Negative Urine Glucose (UA) Normal Urine Ketones Negative Urine Blood 2+ H Urine Nitrate Negative Urine Bilirubin Negative Urine Urobilinogen Normal Ur Leukocyte Esterase Neg Urine WBC (Auto) 2 Urine RBC (Auto) 15 H Ur Squamous Epith Cells Urine Bacteria Rare Hyaline Casts RPR 10/11/17 10/11/17 10/11/17 06:41 14:52 14:52 WBC RBC Hgb Hct MCV MCH MCHC RDW Plt Count MPV Neut % (Auto) Lymph % (Auto) [place] % (Auto) Eos % (Auto) Baso % (Auto) Neut # Lymph # [place] # Eos # Baso # ESR 2 Puncture Site pCO2 pO2 HCO3 ABG pH ABG Total CO2 ABG O2 Saturation ABG Base Excess ABG Hemoglobin ABG Carboxyhemoglobin POC ABG HHb (Measured) ABG Methemoglobin Maikel Test Hgb O2 Saturation Liter Flow Sodium 131 L Potassium 4.2 Chloride 100 Carbon Dioxide 23 Anion Gap 11 BUN 13 Creatinine 0.8 Est GFR ( Amer) > 60 Est GFR (Non-Af Amer) > 60 Random Glucose 156 H Calcium 7.3 L Phosphorus 1.5 L Magnesium 1.5 L Total Bilirubin 2.0 H AST 39 ALT 27 Alkaline Phosphatase 123 Total Protein 7.0 Albumin 3.4 L D Globulin 3.6 Albumin/Globulin Ratio 1.0 Urine Color Dark yellow Urine Clarity Cloudy Urine pH 6.0 Ur Specific [place] > 1.030 H Urine Protein 2+ H Urine Glucose (UA) Negative Urine Ketones 1+ H Urine Blood 3+ H Urine Nitrate Negative Urine Bilirubin 2+ H Urine Urobilinogen 1.0 Ur Leukocyte Esterase Negative Urine WBC (Auto) 8 H Urine RBC (Auto) 2024 H Ur Squamous Epith Cells 1 Urine Bacteria Hyaline Casts 11-20 H RPR 10/11/17 14:52 WBC RBC Hgb Hct MCV MCH MCHC RDW Plt Count MPV Neut % (Auto) Lymph % (Auto) [place] % (Auto) Eos % (Auto) Baso % (Auto) Neut # Lymph # [place] # Eos # Baso # ESR Puncture Site pCO2 pO2 HCO3 ABG pH ABG Total CO2 ABG O2 Saturation ABG Base Excess ABG Hemoglobin ABG Carboxyhemoglobin POC ABG HHb (Measured) ABG Methemoglobin Maikel Test Hgb O2 Saturation Liter Flow Sodium Potassium Chloride Carbon Dioxide Anion Gap BUN Creatinine Est GFR ( Amer) Est GFR (Non-Af Amer) Random Glucose Calcium Phosphorus Magnesium Total Bilirubin AST ALT Alkaline Phosphatase Total Protein Albumin Globulin Albumin/Globulin Ratio Urine Color Urine Clarity Urine pH Ur Specific [place] Urine Protein Urine Glucose (UA) Urine Ketones Urine Blood Urine Nitrate Urine Bilirubin Urine Urobilinogen Ur Leukocyte Esterase Urine WBC (Auto) Urine RBC (Auto) Ur Squamous Epith Cells Urine Bacteria Hyaline Casts RPR Nonreactive Critical Care Progress Note - Nutrition Nutrition: Nutrition Category Date Time Status Regular Diet [DIET] Diets 10/11/17 Lunch Active Attending/Attestation - Attestation I have personally seen and examined this patient.: Yes I have fully participated in the care of the patient.: Yes I have reviewed all pertinent clinical information: Yes Notes (Text): 10/11/17 19:03 patient seen and examined in the intensive care unit Stable for transfer to floor
--- NOTE | 2017-10-11 12:29 | CT ---
PROCEDURE: CT scan chest dated 10/11/2017 HISTORY: Abnormal chest radiograph. COMPARISON: Comparison made with chest radiograph dated 10/10/2017 and chest radiograph left rib series 04/10/2017. TECHNIQUE: Contiguous axial images were obtained through the chest without intravenous contrast enhancement. Sagittal and coronal reconstructions were performed. Radiation dose (DLP): 739.61 mGy-cm. . This CT exam was performed using one or more of the following dose reduction techniques: Automated exposure control, adjustment of the mA and/or kV according to patient size, and/or use of iterative reconstruction technique. FINDINGS: LUNGS: Minor chronic atelectasis/scarring changes seen within the posterior lower lung glover. As mentioned below, areas of subpleural and pleural thickening noted along the posterior pleural surfaces both lung glover subjacent to old healed left posterior rib fractures. MEDIASTINUM: Heart is enlarged. No significant pericardial effusion. Ascending thoracic aorta measures approximately 3.2 cm and descending thoracic aorta measures approximately 2.63 cm. Pulmonary trunk is dilated measuring approximately 4.1 cm ; rule out underlying pulmonary arterial hypertension. The there are a few small nonspecific mediastinal lymph nodes. Evaluation for hilar adenopathy is limited due to the lack of oral contrast material. Central airways are midline and patent. Minor PLEURA: No evidence of effusion or pneumothorax BONES: Re- demonstrated are multiple old healed bilateral posterolateral rib fracture deformities. . Associated subpleural thickening noted along the posterior pleural surfaces subjacent to the multiple old healed rib fractures. Additionally, minor chronic appearing multilevel Schmorl's nodes are present. UPPER ABDOMEN: Liver exhibits a somewhat nodular surface contour ; findings may represent underlying cirrhosis. Additionally, of prominent serpiginous structures in the region the splenic hilum and located between the left kidney and spleen consistent with varices. OTHER FINDINGS: None. IMPRESSION: Multiple old healed bilateral posterior rib fracture deformities with subjacent chronic pleural thickening and some mild atelectasis/scarring. No focal consolidation effusion or pneumothorax. See above discussion for additional details and findings.
--- NOTE | 2017-10-11 14:50 | CARD ---
APPROVED REPORT EKG Measurement Heart [id number] <Conclusion> Normal sinus rhythm Right superior axis deviation Incomplete right bundle branch block Right ventricular hypertrophy with repolarization abnormality T wave abnormality, consider inferior and anterior wall ischemia Prolonged QT Abnormal ECG
--- NOTE | 2017-10-11 14:56 | CARD ---
APPROVED REPORT EKG Measurement Heart [id number] <Conclusion> Normal sinus rhythm Right superior axis deviation Incomplete right bundle branch block Right ventricular hypertrophy Inferior infarct, age undetermined Anterior infarct, age undetermined ST & T wave abnormality, consider anterior and inferior ischemia Abnormal ECG
[2017-10-11 15:45] LABS: SQUAMOUS EPITHIAL 1 /hpf (0-5)
[2017-10-11 15:47] LABS: URINE BILIRUBIN 2+ (NEGATIVE); URINE CLARITY CLOUDY (Clear); URINE COLOR DARK YELLOW (YELLOW); URINE GLUCOSE (UA) NEGATIVE (Normal)
[2017-10-11 15:48] LABS: URINE BLOOD 3+ (NEGATIVE); URINE LEUKOCYTE ESTERASE NEGATIVE Leu/uL (Negative); URINE NITRATE NEGATIVE (NEGATIVE); URINE PROTEIN 2+ mg/dL (NEGATIVE)
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
--- NOTE | 2017-10-11 17:28 | CP.PCM.PN ---
Subjective - Date & Time of Evaluation Date of Evaluation: 10/11/17 Time of Evaluation: 17:28 Objective - Vital Signs/Intake and Output Vital Signs (last 24 hours): Temp Pulse Resp BP Pulse Ox 97.3 F L 78 17 89/63 L 100 10/11/17 15:00 10/11/17 17:00 10/11/17 17:00 10/11/17 17:00 10/11/17 13:00 Intake and Output: 10/11/17 10/11/17 06:59 18:59 Intake Total 2655 670 Output Total 1850 600 Balance 805 70 - Medications Medications: Current Medications Enoxaparin Sodium (Lovenox) 40 mg SC DAILY [facility] Last Admin: 10/11/17 10:10 Dose: 40 mg Phenylephrine HCl 30 mg/ (Sodium Chloride) 253 mls @ 5.05 mls/hr IV .Q24H PRN; Protocol; 10 MCG/MIN PRN Reason: TITRATE PER MD ORDER Last Admin: 10/11/17 01:14 Dose: 10 mcg/min, 5.05 mls/hr Ketorolac Tromethamine (Toradol) 30 mg IVP Q6 PRN PRN Reason: Pain, moderate (4-7) Last Admin: 10/11/17 14:22 Dose: 30 mg Pneumococcal Polyvalent Vaccine (Pneumovax 23 Vaccine) 0.5 ml IM .ONCE ONE Stop: 10/14/17 16:33 - Labs Labs: 10/11/17 06:41 10/11/17 06:41
[2017-10-12] MEDS: Enoxaparin 40 mg Syringe SC SCH (10:46)
--- NOTE | 2017-10-12 16:02 | PCM.PSYCH ---
Initial Psychiatric Evaluation - Initial Psychiatric Evaluation History of Present Illness and Precipitating Events: Consult for overdose Patient is a 51 year old [place] male with a past medical history of COPD, anxiety, depression, bipolar disorder, HTN, who was brought to the hospital for AMS, suspected overdose and alcohol intoxication. Patient was given Narcan in the field and in the ED and became awake and agitated. Currently, patient is lethargic and uncooperative during history and exam; he is a poor historian. He state he took "a lot of medication", "tramadol". Patient is oriented to person, place, and time. Otherwise, patient does not answer other questions. Review of systems not obtained due to patient's condition. Patient's history was obtained from EMR. Current Medications: Active Medications Generic Name Dose Route Start Last Admin Trade Name Freq PRN Reason Stop Dose Admin Enoxaparin Sodium 40 mg 10/11/17 10:00 10/12/17 10:46 Lovenox SC 40 mg DAILY SIMON Administration Phenylephrine HCl 30 mg/ 253 mls @ 5.05 mls/hr 10/11/17 00:10 10/11/17 01:14 Sodium Chloride IV 10 mcg/min .Q24H PRN 5.05 mls/hr TITRATE PER MD ORDER Administration Protocol 10 MCG/MIN Ketorolac Tromethamine 30 mg 10/11/17 07:32 10/12/17 10:47 Toradol IVP 30 mg Q6 PRN Administration Pain, moderate (4-7) Pneumococcal Polyvalent Vaccine 0.5 ml 10/14/17 16:32 Pneumovax 23 Vaccine IM 10/14/17 16:33 .ONCE ONE Past Psychiatric History - Past Psychiatric History Pertinent Medical Hx (Current Medical&Sleep Prob, Allergies): Allergies Allergy/AdvReac Type Severity Reaction Status Date / Time iv contrast Allergy Intermediate ITCHING Uncoded 10/10/17 14:59 Albuterol HFA [Ventolin HFA 90 mcg/actuation (8 g)] 1 puff INH PRN PRN 02/15/17 Atorvastatin Calcium 1 tab PO DAILY 02/15/17 Diclofenac Sodium 1 apful TD PRN PRN 02/15/17 Fentanyl Citrate [Fentanyl] 1 ml IM PRN PRN 02/15/17 Fluticasone/Vilanterol [Breo Ellipta 200-25 Mcg INH] 1 inh INH DAILY 02/15/17 Furosemide [Lasix] 1 tab PO DAILY 02/15/17 Multivitamin,Therapeutic [Therems] 1 tab PO DAILY 02/15/17 Omeprazole 1 tab PO DAILY 02/15/17 Potassium Chloride 1 tab PO DAILY 02/15/17 Umeclidinium [place] [Incruse Ellipta] 1 inh INH DAILY 02/15/17 Naproxen [Naprosyn] 500 mg PO Q12H PRN #10 tablet 04/10/17 Review of Systems - Review of Systems Systems not reviewed;Unavailable: Altered Mental Status (uncooperative) Mental Status Examination - Personal Presentation Personal Presentation: Looks stated age - Affect Affect: Blunted - Motor Activity Motor Activity: Calm - Reliability in Providing Information Reliability in Providing Information: Poor, due to cognitve impairment - Speech Speech: Disorganized, Incoherent - Mood Mood: Depressed - Cognitive Functions Orientation: Person, Place, Situation, Time Sensorium: Drowsy, Lethargic Estimate of Intelligence: Below average Judgement: Imparied, as evidence by: Lack of insight into illness Memory: Recent impaired, as evidence by: Inability to recall events of the day - Risk Risk: Suicidal, Withdrawal, Diminished functioning DSM 5 DX - DSM 5 DSM 5 Diagnosis: Overdose MDD Delirium secondary to medical/psychiatric condition - Recommended/Plan of Treatment Treatment Recommendations and Plan of Treatment: Patient has no capacity to make medical decisions. Placed on 1:1, suicidal precautions. Continue medical management as per medicine team. - Smoking Cessation Smoking Cessation Initiated: No
--- NOTE | 2017-10-12 20:28 | CP.PCM.PN ---
Subjective - Date & Time of Evaluation Date of Evaluation: 10/12/17 Time of Evaluation: 20:28 Objective - Vital Signs/Intake and Output Vital Signs (last 24 hours): Temp Pulse Resp BP Pulse Ox 97.3 F L 81 12 138/74 98 10/12/17 18:00 10/12/17 18:00 10/12/17 18:00 10/12/17 11:30 10/12/17 11:30 - Medications Medications: Current Medications Enoxaparin Sodium (Lovenox) 40 mg SC DAILY [facility] Last Admin: 10/12/17 10:46 Dose: 40 mg Phenylephrine HCl 30 mg/ (Sodium Chloride) 253 mls @ 5.05 mls/hr IV .Q24H PRN; Protocol; 10 MCG/MIN PRN Reason: TITRATE PER MD ORDER Last Admin: 10/11/17 01:14 Dose: 10 mcg/min, 5.05 mls/hr Ketorolac Tromethamine (Toradol) 30 mg IVP Q6 PRN PRN Reason: Pain, moderate (4-7) Last Admin: 10/12/17 10:47 Dose: 30 mg Pneumococcal Polyvalent Vaccine (Pneumovax 23 Vaccine) 0.5 ml IM .ONCE ONE Stop: 10/14/17 16:33 - Labs Labs: 10/11/17 06:41 10/11/17 06:41
[2017-10-13] MEDS: Enoxaparin 40 mg Syringe SC SCH (09:22)
[2017-10-13 11:15] VITALS: RESP 20
[2017-10-13 14:02] LABS: BASO # 0.1 K/uL (0.0-0.2); BASO % 1.1 % (0.0-2.0); EOS # 0.3 K/uL (0.0-0.7); HEMOGLOBIN 14.9 g/dL (12.0-18.0); LYMPH # 1.2 K/uL (1.0-4.3); LYMPH % 18.3 % (20.0-40.0); MEAN CELL VOLUME 80.4 fL (80.0-94.0); MEAN CORPUSCULAR HEMOGLOBIN 26.3 pg (27.0-31.0); MEAN CORPUSCULAR HGB CONC 32.8 g/dL (33.0-37.0); MEAN PLATELET VOLUME 9.7 fL (7.2-11.7); MONO # 0.6 K/uL (0.0-0.8); MONO % 8.9 % (0.0-10.0); NEUT # 4.5 K/uL (1.8-7.0); NEUT % 66.7 % (50.0-75.0); NRBC % 0.1 % (0.0-2.0); RBC 5.67 Mil/uL (4.40-5.90); RED CELL DISTRIBUTION WIDTH 18.8 % (11.5-14.5); WHITE BLOOD COUNT 6.7 K/uL (4.8-10.8)
[2017-10-13 14:15] LABS: ALB/GLOB RATIO 0.9 (1.0-2.1); ALBUMIN 2.9 g/dL (3.5-5.0); ALT/SGPT 16 U/L (21-72); AST/SGOT 34 U/L (17-59); BLOOD UREA NITROGEN 20 mg/dL (9-20); CALCIUM 8.3 mg/dl (8.6-10.4); GFR AFRICAN-AMERICAN > 60; GFR NON-AFRICAN AMERICAN > 60; MAGNESIUM 1.6 mg/dL (1.6-2.3)
--- NOTE | 2017-10-13 15:42 | CP.PCM.PN ---
Subjective - Date & Time of Evaluation Date of Evaluation: 10/13/17 Time of Evaluation: 15:42 Objective - Vital Signs/Intake and Output Vital Signs (last 24 hours): Temp Pulse Resp BP Pulse Ox 98.9 F 72 20 128/88 97 10/13/17 10:00 10/13/17 10:00 10/13/17 10:00 10/13/17 10:00 10/13/17 10:00 Intake and Output: 10/13/17 10/13/17 06:59 18:59 Intake Total 300 Output Total 400 Balance -400 300 - Medications Medications: Current Medications Enoxaparin Sodium (Lovenox) 40 mg SC DAILY SIMON Last Admin: 10/13/17 09:22 Dose: 40 mg Pneumococcal Polyvalent Vaccine (Pneumovax 23 Vaccine) 0.5 ml IM .ONCE ONE Stop: 10/14/17 16:33 - Labs Labs: 10/13/17 13:57 10/13/17 13:57
[2017-10-14] MEDS: Enoxaparin 40 mg Syringe SC SCH (10:22)
[2017-10-14] MEDS ORDERED: Pneumococcal 23-Valent Vaccine IM ONE (16:32)
[2017-10-14] MEDS ORDERED: Influenza Vaccine 60 mcg/0.5 mL SYR (4YR UP) IM ONE (16:34)
--- NOTE | 2017-10-14 17:14 | CP.PCM.PN ---
Subjective - Date & Time of Evaluation Date of Evaluation: 10/14/17 Time of Evaluation: 17:14 Objective - Vital Signs/Intake and Output Vital Signs (last 24 hours): Temp Pulse Resp BP Pulse Ox 98.9 F 85 20 121/87 98 10/14/17 16:00 10/14/17 16:00 10/14/17 16:00 10/14/17 16:00 10/14/17 16:00 Intake and Output: 10/14/17 10/14/17 06:59 18:59 Intake Total 720 Balance 720 - Medications Medications: Current Medications Enoxaparin Sodium (Lovenox) 40 mg SC DAILY SIMON Last Admin: 10/14/17 10:22 Dose: 40 mg Ketorolac Tromethamine (Toradol) 30 mg IVP Q12 PRN PRN Reason: Pain, severe (8-10) Last Admin: 10/14/17 16:18 Dose: 30 mg - Labs Labs: 10/13/17 13:57 10/13/17 13:57
[2017-10-15] MEDS: Enoxaparin 40 mg Syringe SC SCH (10:36)
--- NOTE | 2017-10-15 12:30 | CP.PCM.PN ---
Subjective - Date & Time of Evaluation Date of Evaluation: 10/15/17 Time of Evaluation: 12:30 Objective - Vital Signs/Intake and Output Vital Signs (last 24 hours): Temp Pulse Resp BP Pulse Ox 98.3 F 76 20 131/79 97 10/15/17 07:56 10/15/17 07:56 10/15/17 07:56 10/15/17 07:56 10/15/17 07:56 Intake and Output: 10/15/17 10/15/17 06:59 18:59 Intake Total 360 Balance 360 - Medications Medications: Current Medications Enoxaparin Sodium (Lovenox) 40 mg SC DAILY SIMON Last Admin: 10/15/17 10:36 Dose: 40 mg Ketorolac Tromethamine (Toradol) 30 mg IVP Q12 PRN PRN Reason: Pain, severe (8-10) Last Admin: 10/15/17 04:15 Dose: 30 mg - Labs Labs: 10/13/17 13:57 10/13/17 13:57
[2017-10-16 08:44] VITALS: BP 135/90; PULSE 83; TEMP 98.2; O2SAT 95
[2017-10-16] MEDS: Enoxaparin 40 mg Syringe SC SCH (09:17)
--- NOTE | 2017-10-16 09:59 | PCM.PYCHPN ---
Psychiatric Progress Note - Psychiatric Progress Note Patient seen today, length of contact: 15 min Patient Chief Complaint: I ma feeling better. Medication Change: Yes Medical Record Reviewed: Yes Mental Status Examination - Cognitive Function Orientation: Person, Place, Situation, Time Memory: Intact Attention: WNL Concentration: Poor Association: Loose - Mood Mood: Depressed - Affect Affect: Blunted - Speech Speech: Soft - Formal Thought Process Formal Thought Process: No Impairment - Suicidal Ideation Suicidal Ideation: No Goal/Treatment Plan - Goal/Treatment Plan Need for Continued Stay: Other Progress Toward Problem(s) and Goals/Treatment Plan: Pt is psychiatrically stable and clear for discharge. - Smoking Cessation Smoking Cessation Initiated: No
[2017-10-16 11:26] LABS: BASO # 0.1 K/uL (0.0-0.2); BASO % 0.6 % (0.0-2.0); EOS # 0.4 K/uL (0.0-0.7); EOS % 5.1 % (0.0-4.0); HEMOGLOBIN 14.8 g/dL (12.0-18.0); LYMPH # 1.5 K/uL (1.0-4.3); LYMPH % 18.3 % (20.0-40.0); MEAN CELL VOLUME 80.9 fL (80.0-94.0); MEAN CORPUSCULAR HEMOGLOBIN 26.4 pg (27.0-31.0); MEAN CORPUSCULAR HGB CONC 32.6 g/dL (33.0-37.0); MEAN PLATELET VOLUME 9.3 fL (7.2-11.7); MONO # 1.1 K/uL (0.0-0.8); RBC 5.6 Mil/uL (4.40-5.90); RED CELL DISTRIBUTION WIDTH 18.9 % (11.5-14.5); WHITE BLOOD COUNT 8.1 K/uL (4.8-10.8)
[2017-10-16 11:36] LABS: ALB/GLOB RATIO 0.9 (1.0-2.1); ALBUMIN 3.1 g/dL (3.5-5.0); ALT/SGPT 28 U/L (21-72); AST/SGOT 38 U/L (17-59); BLOOD UREA NITROGEN 12 mg/dL (9-20); CALCIUM 8.2 mg/dl (8.6-10.4); GFR AFRICAN-AMERICAN > 60; GFR NON-AFRICAN AMERICAN > 60
--- NOTE | 2017-10-16 13:45 | CP.PCM.DIS ---
Provider - Provider Date of Admission: 10/10/17 21:00 Attending physician: Nabil Arenas MD Hospital Course - Lab Results Lab Results: Micro Results 10/10/17 18:45 Blood Blood Culture - Final NO GROWTH AFTER 5 DAYS 10/10/17 18:45 Blood Gram Stain - Final TEST NOT PERFORMED 10/10/17 18:20 Blood Blood Culture - Final NO GROWTH AFTER 5 DAYS 10/10/17 18:20 Blood Gram Stain - Final TEST NOT PERFORMED 10/13/17 14:40 Nose MRSA Culture - Final MRSA NOT DETECTED 10/11/17 09:11 Naris MRSA Culture (Admit) - Final MRSA NOT DETECTED 10/10/17 17:38 Urine,Stein Urine Culture - Final No Growth (<1,000 CFU/ML) Most Recent Lab Values WBC 8.1 K/uL (4.8-10.8) 10/16/17 11:17 RBC 5.60 Mil/uL (4.40-5.90) 10/16/17 11:17 Hgb 14.8 g/dL (12.0-18.0) 10/16/17 11:17 Hct 45.3 % (35.0-51.0) 10/16/17 11:17 MCV 80.9 fL (80.0-94.0) 10/16/17 11:17 MCH 26.4 pg (27.0-31.0) L 10/16/17 11:17 MCHC 32.6 g/dL (33.0-37.0) L 10/16/17 11:17 RDW 18.9 % (11.5-14.5) H 10/16/17 11:17 Plt Count 96 K/uL (130-400) L 10/16/17 11:17 MPV 9.3 fL (7.2-11.7) 10/16/17 11:17 Neut % (Auto) 62.0 % (50.0-75.0) 10/16/17 11:17 Lymph % (Auto) 18.3 % (20.0-40.0) L 10/16/17 11:17 [place] % (Auto) 14.0 % (0.0-10.0) H 10/16/17 11:17 Eos % (Auto) 5.1 % (0.0-4.0) H 10/16/17 11:17 Baso % (Auto) 0.6 % (0.0-2.0) 10/16/17 11:17 Neut # 5.0 K/uL (1.8-7.0) 10/16/17 11:17 Lymph # 1.5 K/uL (1.0-4.3) 10/16/17 11:17 [place] # 1.1 K/uL (0.0-0.8) H 10/16/17 11:17 Eos # 0.4 K/uL (0.0-0.7) 10/16/17 11:17 Baso # 0.1 K/uL (0.0-0.2) 10/16/17 11:17 ESR 2 mm/hr (0-15) 10/11/17 14:52 Puncture Site Rr 10/11/17 00:37 pCO2 35 mm/Hg (35-45) 10/11/17 00:37 pO2 65 mm/Hg (80-100) L 10/11/17 00:37 HCO3 23.8 mmol/L (21-28) 10/11/17 00:37 ABG pH 7.42 (7.35-7.45) 10/11/17 00:37 ABG Total CO2 23.8 mmol/L (22-28) 10/11/17 00:37 ABG O2 Saturation 95.9 % (95-98) 10/11/17 00:37 ABG Base Excess -1.2 mmol/L (-2.0-3.0) 10/11/17 00:37 ABG Hemoglobin 14.5 g/dL (11.7-17.4) 10/11/17 00:37 ABG Carboxyhemoglobin 2.6 % (0.5-1.5) H 10/11/17 00:37 POC ABG HHb (Measured) 3.9 % (0.0-5.0) 10/11/17 00:37 ABG Methemoglobin 1.1 % (0.0-3.0) 10/11/17 00:37 Maikel Test Pos 10/11/17 00:37 ABG Potassium 3.5 mmol/L (3.6-5.2) L 10/10/17 17:30 A-a O2 Difference 155.0 mm/Hg 10/10/17 17:30 Respiratory Index 1.8 10/10/17 17:30 Hgb O2 Saturation 92.3 % (95.0-98.0) L 10/11/17 00:37 Sodium 135.0 mmol/l (132-148) 10/10/17 17:30 Chloride 102.0 mmol/L (98-107) 10/10/17 17:30 Glucose 142 mg/dl (75-110) H 10/10/17 17:30 Lactate 2.4 mmol/L (0.7-2.1) H 10/10/17 17:30 Liter Flow 3.0 10/11/17 00:37 FiO2 40.0 % 10/10/17 17:30 Sodium 137 mmol/L (132-148) 10/16/17 11:17 Potassium 4.2 mmol/L (3.6-5.2) 10/16/17 11:17 Chloride 107 mmol/L (98-107) 10/16/17 11:17 Carbon Dioxide 26 mmol/L (22-30) 10/16/17 11:17 Anion Gap 9 (10-20) L 10/16/17 11:17 BUN 12 mg/dL (9-20) 10/16/17 11:17 Creatinine 0.8 mg/dL (0.8-1.5) 10/16/17 11:17 Est GFR ( Amer) > 60 10/16/17 11:17 Est GFR (Non-Af Amer) > 60 10/16/17 11:17 POC Glucose (mg/dL) 99 mg/dL (65-110) 10/10/17 16:57 Random Glucose 54 mg/dL (75-110) L 10/16/17 11:17 Calcium 8.2 mg/dl (8.6-10.4) L 10/16/17 11:17 Phosphorus 2.5 mg/dL (2.5-4.5) 10/13/17 13:57 Magnesium 1.6 mg/dL (1.6-2.3) 10/13/17 13:57 Total Bilirubin 1.4 mg/dL (0.2-1.3) H 10/16/17 11:17 AST 38 U/L (17-59) 10/16/17 11:17 ALT 28 U/L (21-72) 10/16/17 11:17 Alkaline Phosphatase 125 U/L (38-126) 10/16/17 11:17 Total Protein 6.6 g/dL (6.3-8.3) 10/16/17 11:17 Albumin 3.1 g/dL (3.5-5.0) L 10/16/17 11:17 Globulin 3.5 gm/dL (2.2-3.9) 10/16/17 11:17 Albumin/Globulin Ratio 0.9 (1.0-2.1) L 10/16/17 11:17 Arterial Blood Potassium 3.5 mmol/L (3.6-5.2) L 10/10/17 17:30 Urine Color Dark yellow (YELLOW) 10/11/17 14:52 Urine Clarity Cloudy (Clear) 10/11/17 14:52 Urine pH 6.0 (5.0-8.0) 10/11/17 14:52 Ur Specific [place] > 1.030 (1.003-1.030) H 10/11/17 14:52 Urine Protein 2+ mg/dL (NEGATIVE) H 10/11/17 14:52 Urine Glucose (UA) Negative mg/dL (Normal) 10/11/17 14:52 Urine Ketones 1+ mg/dL (NEGATIVE) H 10/11/17 14:52 Urine Blood 3+ (NEGATIVE) H 10/11/17 14:52 Urine Nitrate Negative (NEGATIVE) 10/11/17 14:52 Urine Bilirubin 2+ (NEGATIVE) H 10/11/17 14:52 Urine Urobilinogen 1.0 mg/dL (0.2-1.0) 10/11/17 14:52 Ur Leukocyte Esterase Negative Shine/uL (Negative) 10/11/17 14:52 Urine WBC (Auto) 8 /hpf (0-5) H 10/11/17 14:52 Urine RBC (Auto) 2024 /hpf (0-3) H 10/11/17 14:52 Ur Squamous Epith Cells 1 /hpf (0-5) 10/11/17 14:52 Urine Bacteria Rare (<OCC) 10/10/17 18:50 Hyaline Casts 11-20 /lpf (0-2) H 10/11/17 14:52 Salicylates < 1.0 mg/dL 1 10/10/17 15:13 Urine Opiates Screen Positive (NEGATIVE) H 10/10/17 18:13 Urine Methadone Screen Negative (NEGATIVE) 10/10/17 18:13 Acetaminophen < 10.0 ug/mL (10.0-30.0) L 10/10/17 15:13 Ur Barbiturates Screen Negative (NEGATIVE) 10/10/17 18:13 Ur Phencyclidine Scrn Negative (NEGATIVE) 10/10/17 18:13 Ur Amphetamines Screen Negative (NEGATIVE) 10/10/17 18:13 U Benzodiazepines Scrn Negative (NEGATIVE) 10/10/17 18:13 U Oth Cocaine Metabols Negative (NEGATIVE) 10/10/17 18:13 U Cannabinoids Screen Negative (NEGATIVE) 10/10/17 18:13 Alcohol, Quantitative 56 mg/dl (0-10) H 10/10/17 16:02 RPR Nonreactive (NONREACTIVE) 10/11/17 14:52 Discharge Exam - Head Exam Head Exam: ATRAUMATIC, NORMAL INSPECTION, NORMOCEPHALIC Discharge Plan - Follow Up Plan Condition: SERIOUS Disposition: HOME/ ROUTINE Additional Instructions: PLEASE FOLLOW UP WITH DR. ARENAS IN THE OFFICE -- CALL FOR AN APPOINTMENT CONTINUE MEDICATIONS PER MED REC RETURN TO ER FOR ANY WORSENING SYMPTOMS Referrals: Nabil Arenas MD [Staff Provider] - Lo Newton MD [Staff Provider] -
[2017-10-16] MEDS ORDERED: Oxycodone/Acetaminophen 5/325 mg Tab PO ONE (14:01)
[2017-10-16] MEDS ORDERED: Influenza Vaccine 60 mcg/0.5 mL SYR (4YR UP) IM ONE (14:08)
== END 2017-10-16 14:27 | disposition home or self-care (01) | DRG 918 ==
LOC: C.ER 14:48 → C.9E 21:00 → C.9I 21:34 → C.3T 10-13 10:03
PROVIDERS: ADMIT Internal Medicine Critical Care Medicine; ATTEND Internal Medicine Critical Care Medicine
DX: T40.4X1A Poisoning by other synthetic narcotics, accidental (unintentional), initial encounter (principal); T51.0X1A Toxic effect of ethanol, accidental (unintentional), initial encounter; E83.42 Hypomagnesemia; F11.921 Opioid use, unspecified with intoxication delirium; E83.51 Hypocalcemia; F31.9 Bipolar disorder, unspecified; I10 Essential (primary) hypertension; E87.6 Hypokalemia; J44.9 Chronic obstructive pulmonary disease, unspecified; F10.129 Alcohol abuse with intoxication, unspecified; I25.10 Atherosclerotic heart disease of native coronary artery without angina pectoris; G89.29 Other chronic pain; K59.00 Constipation, unspecified; Y90.2 Blood alcohol level of 40-59 mg/100 ml; Z95.5 Presence of coronary angioplasty implant and graft

== ENCOUNTER 2018-03-06 12:13 | Observation (INO) | payer OTHER ==
[2018-03-06 12:13] VITALS: BMI 29.5
[2018-03-06] MEDS ORDERED: Aspirin 325 mg EC Tablets PO STA (13:20)
[2018-03-06] MEDS ORDERED: Aspirin 325 mg EC Tablets PO ONE (13:59)
[2018-03-06 14:02] LABS: BASO # 0.1 K/uL (0.0-0.2); BASO % 1.8 % (0.0-2.0); EOS # 0.2 K/uL (0.0-0.7); HEMOGLOBIN 15.8 g/dL (12.0-18.0); LYMPH % 29.6 % (20.0-40.0); MEAN CELL VOLUME 79.1 fL (80.0-94.0); MEAN CORPUSCULAR HEMOGLOBIN 26.8 pg (27.0-31.0); MEAN CORPUSCULAR HGB CONC 33.9 g/dL (33.0-37.0); MEAN PLATELET VOLUME 10.2 fL (7.2-11.7); MONO # 0.9 K/uL (0.0-0.8); MONO % 13.4 % (0.0-10.0); NEUT # 3.5 K/uL (1.8-7.0); NEUT % 52.2 % (50.0-75.0); NRBC % 0.4 % (0.0-2.0); RBC 5.88 Mil/uL (4.40-5.90); RED CELL DISTRIBUTION WIDTH 18.7 % (11.5-14.5); WHITE BLOOD COUNT 6.8 K/uL (4.8-10.8)
[2018-03-06 14:11] LABS: SQUAMOUS EPITHIAL < 1 /hpf (0-5); URINE BILIRUBIN NEGATIVE (NEGATIVE); URINE BLOOD 3+ (NEGATIVE); URINE CLARITY Clear (Clear); URINE COLOR Yellow (YELLOW); URINE GLUCOSE (UA) NORMAL (Normal); URINE LEUKOCYTE ESTERASE NEG Leu/uL (Negative); URINE PROTEIN NEGATIVE (NEGATIVE)
[2018-03-06 14:15] LABS: ALBUMIN 3.5 g/dL (3.5-5.0); BLOOD UREA NITROGEN 12 mg/dL (9-20); CALCIUM 8.8 mg/dl (8.6-10.4); GFR AFRICAN-AMERICAN > 60; GFR NON-AFRICAN AMERICAN > 60
[2018-03-06 14:16] LABS: ALB/GLOB RATIO 0.9 (1.0-2.1); ALT/SGPT 17 U/L (21-72); AST/SGOT 50 U/L (17-59); LIPASE 95 U/L (23-300)
[2018-03-06 14:19] LABS: BARBITURATES, UR NEGATIVE (NEGATIVE); BENZODIAZEPINES, UR NEGATIVE (NEGATIVE); OPIATES, UR NEGATIVE (NEGATIVE); PHENCYCLIDINE, UR NEGATIVE (NEGATIVE)
[2018-03-06 14:25] LABS: INR 1.2; PARTIAL THROMBOPLASTIN TIME 45 SECONDS (21-34); PROTHROMBIN TIME 12.6 SECONDS (9.7-12.2)
[2018-03-06 14:26] LABS: D DIMER < 200 ng/mlDDU (0-243)
[2018-03-06 14:28] LABS: B-TYPE NATRIURETIC PEPTIDE 390 pg/mL (0-900)
--- NOTE | 2018-03-06 15:23 | RAD ---
PROCEDURE: CHEST RADIOGRAPH, 1 VIEW HISTORY: chest pain COMPARISON: Portable chest 10/10/2017. FINDINGS: LUNGS: No acute infiltrate bilaterally. PLEURA: No pneumothorax or pleural fluid seen. CARDIOVASCULAR: Faith 7 silhouette is stable including clinically prominent hilar vascular markings. OSSEOUS STRUCTURES: Multiple ununited left rib fractures reiterated VISUALIZED UPPER ABDOMEN: Normal. OTHER FINDINGS: None. IMPRESSION: No definite acute interval cardiopulmonary disease appreciated.
--- NOTE | 2018-03-06 15:42 | CT ---
PROCEDURE: CT HEAD WITHOUT CONTRAST. HISTORY: Dizziness/syncope COMPARISON: Noncontrast head CT 10/10/2017. TECHNIQUE: Axial computed tomography images were obtained through the head/brain without intravenous contrast. Radiation dose: Total exam DLP = 2894.17 mGy-cm. This CT exam was performed using one or more of the following dose reduction techniques: Automated exposure control, adjustment of the mA and/or kV according to patient size, and/or use of iterative reconstruction technique. FINDINGS: HEMORRHAGE: No intracranial hemorrhage. BRAIN: The wiggins-white matter differentiation is well preserved. There is no mass effect or definitive edema pattern appreciate including the cortex. There is limited expansion of the ventriculosulcal and cisternal spaces that may reflect trace early diffuse cerebral atrophy once again. No suspicious extra-axial fluid collection is identified in the midline brain anatomy appears grossly nonfocal as imaged. VENTRICLES: Unremarkable. No hydrocephalus. CALVARIUM: Unremarkable. PARANASAL SINUSES: Unremarkable as visualized. No significant inflammatory changes. MASTOID AIR CELLS: Unremarkable as visualized. No inflammatory changes. OTHER FINDINGS: None. IMPRESSION: 1. No acute intracranial findings appreciable. 2. Limited cerebral atrophy suspected, stable in appearance. 10/10/2017 CT.
--- NOTE | 2018-03-06 15:48 | C.PDOC ---
History Of Present Illness Pt states he had 2 syncopal episodes today. C/o chest pain for 2 days. Time Seen by Provider: 03/06/18 13:09 Chief Complaint (Nursing): Chest Pain History Per: Patient Onset/Duration Of Symptoms: Days (2) Current Symptoms Are (Timing): Still Present Severity: Moderate Quality: "Pain" Associated Symptoms: Dyspnea, Syncope Modifying Factors: Other Indicated Below Exacerbating Factors: Exertion (?) Additional History Per: Prior Records Past Medical History Reviewed: Historical Data, Nursing Documentation, Vital Signs Vital Signs: Last Vital Signs Temp 97.7 F 03/06/18 12:19 Pulse 100 H 03/06/18 13:04 Resp 18 03/06/18 12:19 BP 132/84 03/06/18 13:04 Pulse Ox 98 03/06/18 12:19 - Medical History PMH: Anxiety, Asthma, Bipolar Disorder, COPD, Depression, Fractures (ribs), Gastritis, HTN Other PMH: Alcohol abuse Surgical History: Coronary Stent, Endoscopy - [facility] Procedures DETOXIFICATION SERVICES FOR SUBSTANCE ABUSE TREATMENT (12/14/15) INJECT/INFUSE NEC (01/28/15) NEBULIZER THERAPY (01/28/15) Family History: States: Unknown Family Hx - Social History Hx Tobacco Use: Yes Hx Alcohol Use: Yes (etoh abuse) - Immunization History Hx Tetanus Toxoid Vaccination: No Hx Influenza Vaccination: No Hx Pneumococcal Vaccination: No Review Of Systems Except As Marked, All Systems Reviewed And Found Negative. Constitutional: Negative for: Fever Cardiovascular: Positive for: Chest Pain Respiratory: Positive for: Shortness of Breath. Negative for: Hemoptysis Musculoskeletal: Negative for: Neck Pain Skin: Negative for: Rash Neurological: Negative for: Weakness, Numbness Physical Exam - Physical Exam Appears: Non-toxic, No Acute Distress Skin: Normal Color, Warm, Dry Head: Atraumatic, Normacephalic Eye(s): bilateral: PERRL, EOMI Neck: Normal ROM, No Midline Cervical Tenderness, No Step Off Deformity, Supple Chest: Symmetrical, No Deformity Cardiovascular: Rhythm Regular Respiratory: Normal Breath Sounds, No Accessory Muscle Use Gastrointestinal/Abdominal: Soft Extremity: Normal ROM, No Pedal Edema, No Calf Tenderness, No Deformity Neurological/Psych: Oriented x3, Normal Motor, Normal Sensation ED Course And Treatment - Laboratory Results Result Diagrams: 03/06/18 13:59 03/06/18 13:59 ECG: Interpreted By Me, Viewed By Me ECG Rhythm: Sinus Rhythm, Nonspecific Changes ECG Interpretation: No Changes From Prior Rate From EC O2 Sat by Pulse Oximetry: 98 Pulse Ox Interpretation: Normal - Radiology CXR: Viewed By Me, Read By Radiologist CXR Interpretation: Yes: No Acute Disease Progress - Interventions Interventions:: Observation, Oxygen - Medications Administered Oral: Aspirin - Data Reviewed Data Reviewed: Lab, Diagnostic imaging, EKG, Old records - Patient Status Patient status: Partially improved - Continuity of Care Discussed patient case with:: Patient, ED Nurse, Covering for PMD Disposition Discussed With DrVicky: Nabil Johansen (Covering) Comment: He accepted pt on his service. Doctor Will See Patient In The: Hospital Counseled Patient/Family Regarding: Studies Performed, Diagnosis, Smoking Cessation - Disposition Disposition: HOSPITALIZED Disposition Time: 15:53 Condition: FAIR - Clinical Impression Clinical Impression: Chest pain, Syncope
[2018-03-06] MEDS ORDERED: Oxycodone/Acetaminophen 5/325 mg Tab PO STA (15:54)
[2018-03-06] MEDS ORDERED: Nitroglycerin 2% Ointment Foilpak UD TOP STA (15:54)
[2018-03-06] MEDS ORDERED: Nitroglycerin 2% Ointment Foilpak UD TOP ONE (16:16)
[2018-03-06] MEDS ORDERED: Oxycodone/Acetaminophen 5/325 mg Tab ONE (16:17)
[2018-03-06] MEDS: Oxycodone/Acetaminophen 5/325 mg Tab PO PRN ×2 (19:02→22:55)
[2018-03-06 20:15] LABS: CK-MB 1.95 ng/mL (0.0-3.38)
[2018-03-06] MEDS ORDERED: DiphenhydrAMINE 50 mg/ml Inj IVP STA (22:35)
[2018-03-07 08:02] LABS: CK-MB 1.9 ng/mL (0.0-3.38); TROPONIN I 0.013 ng/mL (0.00-0.120)
[2018-03-07] MEDS: Oxycodone/Acetaminophen 5/325 mg Tab PO PRN ×3 (09:12→17:53)
--- NOTE | 2018-03-07 12:45 | VASCLAB ---
PROCEDURE: HISTORY: Syncope COMPARISON: Last exam 12/14/2010, normal. TECHNIQUE: Grayscale and duplex Doppler evaluation of the cervical carotid and vertebral arteries were performed. The common carotid, carotid bifurcations and cervical Internal Carotid Artery (ICA) and proximal External Carotid Artery (ECA) were evaluated. The vertebral arteries were evaluated for gross patency and flow direction. Report prepared by MYKE Grady FINDINGS: RIGHT CAROTID ARTERIES: 1. Common Carotid Artery: No significant focal plaque formation of the right common carotid artery. Maximum Peak Systolic velocity: 81 cm/sec: End-diastolic velocity 14 cm/sec. 2. Carotid Bifurcation: plaque formation. Maximum Peak Systolic velocity: 47 cm/sec: End-diastolic velocity 7 cm/sec. 3. Internal Carotid Artery: Plaque description: 3.1. Proximal Segment: Peak systolic velocity 59 cm/sec: End-diastolic velocity 22 cm/sec - % stenosis 0-15% 3.2. Middle Segment: Peak systolic velocity 80 cm/sec: End-diastolic velocity 34 cm/sec - % stenosis 0-15% 3.3. Distal Segment: Peak systolic velocity 51 cm/sec: End-diastolic velocity 18 cm/sec - % stenosis 0-15% 4. External Carotid Artery: No significant focal plaque formation. Peak systolic velocity 90 cm/sec 5. ICA/CCA Ratio: 1.3 LEFT CAROTID ARTERIES: 1. Common Carotid Artery: No significant focal plaque formation of the left common carotid artery. Maximum Peak Systolic velocity: 104 cm/sec: End-diastolic velocity 18 cm/sec. 2. Carotid Bifurcation: plaque formation. Maximum Peak Systolic velocity: 45 cm/sec: End-diastolic velocity 10 cm/sec. 3. Internal Carotid Artery: Plaque description: 3.1. Proximal Segment: Peak systolic velocity 48 cm/sec: End-diastolic velocity 14 cm/sec - % stenosis 0-15% 3.2. Middle Segment: Peak systolic velocity 59 cm/sec: End-diastolic velocity 20 cm/sec - % stenosis 0-15% 3.3. Distal Segment: Peak systolic velocity 53 cm/sec: End-diastolic velocity 19 cm/sec - % stenosis 0-15% 4. External Carotid Artery: No significant focal plaque formation. Peak systolic velocity 66 cm/sec 5. ICA/CCA Ratio: 1.0 VERTEBRAL ARTERIES: 1. Right Vertebral Artery: The right vertebral artery flow direction is antegrade. 2. Left Vertebral Artery: The left vertebral artery flow direction is antegrade. OTHER FINDINGS: 1. Right Brachial Blood pressure: 125 mmHg. 2. Left Brachial Blood pressure: 115 mmHg. IMPRESSION: RIGHT: Duplex scan does not suggest hemodynamically significant stenosis of the right extracranial carotid arteries. LEFT: Duplex scan does not suggest hemodynamically significant stenosis of the left extracranial carotid arteries.
--- NOTE | 2018-03-07 16:47 | CP.PCM.HP ---
Past Patient History - Infectious Disease Hx of Infectious Diseases: None - Tetanus Immunizations Tetanus Immunization: Unknown - Past Medical History & Family History Past Medical History?: Yes - Past Social History Smoking Status: Never Smoked - CARDIAC Hx Hypertension: Yes - PULMONARY Hx Asthma: Yes Hx Chronic Obstructive Pulmonary Disease (COPD): Yes - NEUROLOGICAL Hx Seizures: No - HEENT Hx HEENT Problems: Yes Other/Comment: eyes sensitive to light wears dark glasssess inside, but denies eye problems. - RENAL Hx Chronic Kidney Disease: No - ENDOCRINE/METABOLIC Hx Endocrine Disorders: No - HEMATOLOGICAL/ONCOLOGICAL Hx Human Immunodeficiency Virus (HIV): No - INTEGUMENTARY Hx Dermatological Problems: No - MUSCULOSKELETAL/RHEUMATOLOGICAL Hx Fractures: Yes (ribs) - GASTROINTESTINAL Hx Gastritis: Yes - GENITOURINARY/GYNECOLOGICAL Hx Sexually Transmitted Disorders: No - PSYCHIATRIC Hx Anxiety: Yes Hx Bipolar Disorder: Yes Hx Depression: Yes - SURGICAL HISTORY Hx Coronary Stent: Yes - ANESTHESIA Hx Anesthesia: Yes Hx Anesthesia Reactions: No Hx Malignant Hyperthermia: No Meds Allergies/Adverse Reactions: Allergies Allergy/AdvReac Type Severity Reaction Status Date / Time iv contrast Allergy Mild ITCHING Uncoded 03/06/18 12:22 Results - Vital Signs Recent Vital Signs: Last Vital Signs Temp 97.4 F L 03/07/18 15:28 Pulse 68 03/07/18 15:28 Resp 18 03/07/18 15:28 BP 119/85 03/07/18 15:28 Pulse Ox 97 03/07/18 15:28 - Labs Result Diagrams: 03/06/18 13:59 03/06/18 13:59 Labs: Laboratory Results - last 24 hr 03/06/18 03/07/18 19:29 07:23 Total Creatine Kinase 91 89 CK-MB (Mass) 1.95 1.90 Troponin I < 0.0120 0.0130
--- NOTE | 2018-03-07 18:08 | CON ---
DATE: 03/07/2018 CHIEF COMPLAINT: Syncope. HISTORY OF PRESENT ILLNESS: This is a 52-year-old man with history of anxiety, asthma, bipolar disorder, COPD, depression, gastritis, hypertension, history of alcohol abuse, history of coronary artery disease status post stent, who presented to the hospital after having some intermittent chest pain over the past two days and some mild shortness of breath and in addition had two syncopal episodes. He had elevated blood alcohol level of 141. He is mildly dehydrated, otherwise no focal neurological signs on examination. CAT scan of the head showed no acute intracranial abnormality. Carotid Doppler showed no significant hemodynamic stenosis bilaterally. His vital signs are currently stable. He is moving all extremities equally. PAST MEDICAL HISTORY: As above. SOCIAL HISTORY: He drinks alcohol daily. Occasional smoker. No illicit drug abuse. ALLERGIES: ALLERGIC TO IV CONTRAST. MEDICATIONS: Medications reviewed by nurse reconciliation sheet. FAMILY HISTORY: Noncontributory. REVIEW OF SYSTEMS: Fourteen point review of systems negative except per HPI. PHYSICAL EXAMINATION: GENERAL: The patient is sitting up in bed, in no acute distress. VITAL SIGNS: Temperature 97.4, pulse rate of 68, blood pressure 119/85, respiratory rate 18, oxygen saturation 97% on room air. HEENT: Atraumatic and normocephalic. PERRLA. Extraocular muscles intact. NECK: Supple. No JVD. No adenopathy. LUNGS: Lungs are clear to auscultation. No adventitious sounds. CARDIOPULMONARY: S1 and S2 normal. Regular rate and rhythm. No murmurs, rubs, or gallops. ABDOMEN: Soft, nontender, and nondistended. Bowel sounds present. EXTREMITIES: No clubbing and no cyanosis. Peripheral pulses 2+ felt bilaterally. NEURO EXAM: The patient has a flat affect. He is alert and oriented to person, place, month, and year. Speech is fluent without any errors. Cranial nerves II through XII are intact. Motor exam: Moves all extremities equally. Toes are downgoing bilaterally. Sensory exam: Light touch, pinprick, proprioception and, vibration are intact. DTRs are 2+ throughout. Coordination: [id number] intact. No dysmetria seen. Gait is deferred for now. LABORATORY DATA: Sodium 144, potassium 3, chloride 109, carbon dioxide 20, BUN 12, creatinine 0.9, random glucose of 89. U-tox was positive for alcohol level 141. ASSESSMENT AND PLAN: Syncope is most likely secondary to underlying vasovagal event with history of alcohol intoxication given that elevated alcohol level of 141. His carotid Doppler is negative for any significant hemodynamic stenosis and CT of the head showed no acute intracranial abnormality at this time. RECOMMENDATIONS: 1. Orthostatic vital signs. 2. Adequate hydration throughout the day. 3. Avoid overuse of any opiate medications since it can cause dehydration. 4. Aspirin 81 mg, Lipitor 20 mg p.o. daily for stroke prevention and continue with .current present medical management. Thank you for this consult. Matteo Dillard MD
[2018-03-07] MEDS ORDERED: DiphenhydrAMINE 50 mg/ml Inj IVP PRN (19:58)
--- NOTE | 2018-03-07 21:51 | CP.PCM.CON ---
History of Present Illness - History of Present Illness History of Present Illness: Patient with episodes of syncope Carotids: Normal ECHO Pending Tilt table test to be done by Dr. Villalba Past Patient History - Infectious Disease Hx of Infectious Diseases: None - Tetanus Immunizations Tetanus Immunization: Unknown - Past Medical History & Family History Past Medical History?: Yes - Past Social History Smoking Status: Never Smoked - CARDIAC Hx Hypertension: Yes - PULMONARY Hx Asthma: Yes Hx Chronic Obstructive Pulmonary Disease (COPD): Yes - NEUROLOGICAL Hx Seizures: No - HEENT Hx HEENT Problems: Yes Other/Comment: eyes sensitive to light wears dark glasssess inside, but denies eye problems. - RENAL Hx Chronic Kidney Disease: No - ENDOCRINE/METABOLIC Hx Endocrine Disorders: No - HEMATOLOGICAL/ONCOLOGICAL Hx Human Immunodeficiency Virus (HIV): No - INTEGUMENTARY Hx Dermatological Problems: No - MUSCULOSKELETAL/RHEUMATOLOGICAL Hx Fractures: Yes (ribs) - GASTROINTESTINAL Hx Gastritis: Yes - GENITOURINARY/GYNECOLOGICAL Hx Sexually Transmitted Disorders: No - PSYCHIATRIC Hx Anxiety: Yes Hx Bipolar Disorder: Yes Hx Depression: Yes - SURGICAL HISTORY Hx Coronary Stent: Yes - ANESTHESIA Hx Anesthesia: Yes Hx Anesthesia Reactions: No Hx Malignant Hyperthermia: No Meds Allergies/Adverse Reactions: Allergies Allergy/AdvReac Type Severity Reaction Status Date / Time iv contrast Allergy Mild ITCHING Uncoded 03/06/18 12:22 - Medications Medications: Current Medications Aspirin (Aspirin Chewable) 81 mg PO DAILY SIMON Last Admin: 03/07/18 09:11 Dose: 81 mg Diphenhydramine HCl (Benadryl) 25 mg IVP Q6H PRN PRN Reason: itching Last Admin: 03/07/18 20:16 Dose: 25 mg Oxycodone/Acetaminophen (Percocet 5/325 Mg Tab) 1 tab PO Q4H PRN PRN Reason: Pain Stop: 03/09/18 18:43 Last Admin: 03/07/18 17:53 Dose: 1 tab Results - Vital Signs Recent Vital Signs: Last Vital Signs Temp 97.4 F L 03/07/18 15:28 Pulse 68 03/07/18 15:28 Resp 18 03/07/18 15:28 BP 119/85 03/07/18 15:28 Pulse Ox 97 03/07/18 15:28 - Labs Result Diagrams: 03/06/18 13:59 03/06/18 13:59 Labs: Laboratory Results - last 24 hr 03/07/18 07:23 Total Creatine Kinase 89 CK-MB (Mass) 1.90 Troponin I 0.0130
[2018-03-08] MEDS: Oxycodone/Acetaminophen 5/325 mg Tab PO PRN ×2 (02:21→09:38)
[2018-03-08 02:48] VITALS: RESP 20
[2018-03-08 08:39] VITALS: BP 119/78; PULSE 67; TEMP 97.8; O2SAT 100
--- NOTE | 2018-03-08 15:56 | CARD ---
APPROVED REPORT EXAM: Two-dimensional and M-mode echocardiogram with Doppler and color Doppler. Other Information Quality : GoodRhythm : INDICATION Chest Pain Syncope 2D DIMENSIONS IVSd1.1 (0.7-1.1cm)LVDd3.9 (3.9-5.9cm) PWd1.1 (0.7-1.1cm)LVDs3.4 (2.5-4.0cm) LVEF (%)60.0 (>50%) M-Mode DIMENSIONS Left Atrium (MM)4.42 (2.5-4.0cm)Aortic Root3.58 (2.2-3.7cm) Mitral Valve MV E Rbxvuzhg63.6cm/sMV A Driqbjmq31.0cm/sE/A ratio0.8 TDI Lateral E' Peak V4.00cm/sMedial E' Peak V14.00cm/sE/Lateral E'10.4 E/Medial E'3.0 Tricuspid Valve TR Peak Onycjxmk092bz/sTR Peak Gr.18wgVgKNHF05odTg LEFT VENTRICLE The left ventricle is normal size. There is normal left ventricular wall thickness. The left ventricular systolic function is normal. The left ventricular ejection fraction is within the normal range. There is a flattened septum consistent with right ventricle volume and pressure overload. Transmitral Doppler flow pattern is Grade I-abnormal relaxation pattern. RIGHT VENTRICLE The right ventricle is severely dilated. There is normal right ventricular wall thickness. The right ventricular systolic function is normal. ATRIA The left atrium is mildly dilated. The right atrium is moderately dilated. AORTIC VALVE The aortic valve is normal in structure. No aortic regurgitation is present. There is no aortic valvular stenosis. MITRAL VALVE The mitral valve is normal in structure. There is no mitral valve regurgitation noted. TRICUSPID VALVE The tricuspid valve is normal in structure. There is moderate tricuspid regurgitation. Right ventricular systolic pressure is estimated at 40 - 50 mmHg. There is mild pulmonary hypertension. PULMONIC VALVE The pulmonic valve is not well visualized. GREAT VESSELS The aortic root is normal in size. The IVC was not visualized. PERICARDIAL EFFUSION There is no gross pericardial effusion. <Conclusion> The left ventricular systolic function is normal. Transmitral Doppler flow pattern is Grade I-abnormal relaxation pattern. There is a flattened septum consistent with right ventricle volume and pressure overload. The right ventricle is severely dilated with preserved ssystolic function. There is moderate tricuspid regurgitation. There is moderate pulmonary hypertension. Right ventricular systolic pressure is estimated at - 48 mmHg. There is no gross pericardial effusion.
--- NOTE | 2018-03-09 05:36 | CARD ---
APPROVED REPORT EKG Measurement Heart [id number] <Conclusion> Sinus tachycardia Right superior axis deviation Right ventricular hypertrophy Inferior infarct, age undetermined Cannot rule out Anterior infarct, age undetermined T wave abnormality, consider lateral ischemia Abnormal ECG
== END 2018-03-08 13:38 | disposition left against medical advice (07) ==
LOC: C.ER 12:13 → C.6T 15:55
PROVIDERS: ADMIT Internal Medicine Critical Care Medicine; ATTEND Internal Medicine Critical Care Medicine
DX: R55 Syncope and collapse (principal); E86.0 Dehydration; F17.200 Nicotine dependence, unspecified, uncomplicated; F31.9 Bipolar disorder, unspecified; I10 Essential (primary) hypertension; Y90.6 Blood alcohol level of 120-199 mg/100 ml; F10.120 Alcohol abuse with intoxication, uncomplicated
CPT/HCPCS: 36415; 70450; 71045; 80053; 81001; 83690; 83880; 84484; 85025; 85378; 85610; 85730; 93306; 93880; 99285; G0378; G0480; J1200

== ENCOUNTER 2018-08-28 07:18 | Observation (INO) | payer MEDICARE, OTHER ==
[2018-08-28 07:18] VITALS: BMI 29.5
--- NOTE | 2018-08-28 07:49 | C.PDOC ---
History Of Present Illness 52 Y/O MALE BROUGHT TO ED PER EMS, FAMILY STATES PATIENT FOUND LYING ON FLOOR @ 0400 @ HOME, UNK DURATION. LIMITED HISTORY FROM FAMILY PER EMS. UNKNOWN MEDICATION HISTORY. PATIENT FOUND SLEEPY BUT EASILY AROUSABLE ON SCENE, NON VE RBAL NO COMPLAINTS OFFERED IN ER. HPI LIMITED SECONDARY TO PATIENT'S CLINICAL CONDITION. LIMITED DUE TO CLIN [place] PER EMS, FAMILY STATES PT FOUND LYING ON FLOOR @ 0400 @ HOME, UNK DURATION. L IMITED HX FROM FAMILY PER EMS. UNK MED HX. PT FOUND SLEEPY BUT EASILY AROUSABLE ON SCENE, NON VERBAL NO COMPLAINTS OFFERED IN ER ROS UTO EXAM MOD DIST HEENT NO SWELL, DEFORM. PERRLA, EOMI. NO GROSS SCALP TRAUMA NECK SUPPLE LUNGS B/L CRACKLES, ?ATELECTASIS. NO RETRACTION CV RRR ABD NEG EXT AROM WO DIFF, NO SWELL NO GROSS TRAUMA BACK NEG SKIN MULT OLD AND NEW FACIAL ABRASIONS, NO INFXN. MULT B/L KNEE AND LOWER LEG ABRASIONS NO ACTIVE BLEED, INFXN. NEURO NONVERBAL, FOCAL RESPONSE TO VOICE THEN FALLS BACK ASLEEP; FOCAL RESPONSE TO PAIN. UNABLE TO ASSESS GAIT, SENSORY. NO GROSS CN DEFICIT MDM PER PRIOR RECORDS, RECENT ADMISSION FOR CHEST PAIN LEFT AMA. CAROTID, ECHO REPORT REVIEWED. PRIOR ADMISSION FOR DETOX, +HO ETOH ABUSE. Time Seen by Provider: 08/28/18 07:24 Chief Complaint (Nursing): Altered Mental Status History Per: EMS, Family History/Exam Limitations: Clinical Condition Onset/Duration Of Symptoms: Hrs Current Symptoms Are (Timing): Still Present Past Medical History Reviewed: Historical Data, Nursing Documentation, Vital Signs - Medical History PMH: Anxiety, Asthma, Bipolar Disorder, COPD, Depression, Fractures (ribs), Gastritis, HTN, Chronic Pain Surgical History: Coronary Stent, Endoscopy - [facility] DETOXIFICATION SERVICES FOR SUBSTANCE ABUSE TREATMENT (12/14/15) INJECT/INFUSE NEC (01/28/15) NEBULIZER THERAPY (01/28/15) Family History: States: No Known Family Hx - Social History Hx Tobacco Use: Yes Hx Alcohol Use: Yes (etoh abuse) Hx Substance Use: Yes ((+) opiates/toxicology) - Immunization History Hx Tetanus Toxoid Vaccination: No Hx Influenza Vaccination: No Hx Pneumococcal Vaccination: No Review Of Systems Review Of Systems: ROS cannot be obtained secondary to pt's inabilty to answer questions. Physical Exam - Physical Exam Appears: Other (In moderate distress) Skin: Warm, Dry, No Rash, Other (multiple old and new facial abrasion. No infection noted. Multiple bilateral knee and lower leg abrasions. No active bleeding or infection noted) Head: Atraumatic, Normacephalic, No Laceration, Other (No gross scalp trauma) Eye(s): bilateral: PERRL, EOMI Oral Mucosa: Moist Neck: Supple Cardiovascular: Rhythm Regular Respiratory: No Rhonchi, No Wheezing, Other (bilateral crackles? atelectasis) Gastrointestinal/Abdominal: Soft, No Tenderness, No Guarding, No Rebound Extremity: Capillary Refill (<2 seconds), No Deformity, No Swelling Neurological/Psych: Other (nonverbal, focal response to voice then falls back asleep; focal response to pain, unable to assess sensory. No gross CN deficit) Gait: Unable To Assess ED Course And Treatment - Laboratory Results Result Diagrams: 08/28/18 07:58 08/28/18 07:58 ECG: Interpreted By Me ECG Rhythm: Sinus Rhythm ECG Interpretation: Abnormal Interpretation Of ECG: TWI III, AVF,V3-[address] DEPRESSION. Rate From EC O2 Sat by Pulse Oximetry: 100 Pulse Ox Interpretation: Normal - Radiology CXR: Interpreted by Me, Viewed By Me CXR Interpretation: Yes: No Acute Disease, Other (unchanged from prior ) - CT Scan/US CT head w/o contrast Other Rad Studies (CT/US): Read By Radiologist, Radiology Report Reviewed CT/US Interpretation: IMPRESSION: No intracranial hemorrhage or mass effect. Marked cerebral atrophy greater than expected for patient's age-a similar status for this patient. No interval change appreciated Progress - Re-Evaluation Re-evaluation Note: 08/28/18 09:25 IMPROVED ALERTNESS, MENTATION SP NARCAN BUT FALLS BACK ASLEEP. VSS NARD MAINTAINING AIRWAY WO DIFF. D/W DR ARENAS C/F PMD WILL ADMIT - Data Reviewed Data Reviewed: Lab, Diagnostic imaging, EKG, Old records - Critical Care Citical Care: Excluding Proc Time Critical Care Time: 90 minutes Medical Decision Making Medical Decision Making: PRIOR RECORDS REVIEWED: PER PRIOR RECORDS, RECENT ADMISSION FOR CHEST PAIN LEFT AMA. CAROTID, ECHO REPORT REVIEWED. PRIOR ADMISSION FOR DETOX, +HO ETOH ABUSE Disposition Counseled Patient/Family Regarding: Studies Performed, Diagnosis - Disposition Disposition: HOSPITALIZED Disposition Time: 09:27 Condition: SERIOUS Forms: [facility] (Polish) - POA Present On Arrival: Falls Or Trauma - Clinical Impression Clinical Impression: Acute narcotic intoxication, Excessive sleepiness - Scribe Statement The provider has reviewed the documentation as recorded by the Idaniaibmel Wong All medical record entries made by the Idaniaibmel were at my direction and personally dictated by me. I have reviewed the chart and agree that the record accurately reflects my personal performance of the history, physical exam, medical decision making, and the department course for this patient. I have also personally directed, reviewed, and agree with the discharge instructions and disposition.
[2018-08-28 08:08] LABS: BASO # 0.1 K/uL (0.0-0.2); BASO % 1.2 % (0.0-2.0); EOS % 0.4 % (0.0-4.0); HEMOGLOBIN 14.3 g/dL (12.0-18.0); LYMPH # 1.2 K/uL (1.0-4.3); LYMPH % 26.3 % (20.0-40.0); MEAN CELL VOLUME 76.7 fL (80.0-94.0); MEAN CORPUSCULAR HGB CONC 32.5 g/dL (33.0-37.0); MEAN PLATELET VOLUME 9.6 fL (7.2-11.7); MONO # 0.6 K/uL (0.0-0.8); MONO % 13.4 % (0.0-10.0); NEUT # 2.6 K/uL (1.8-7.0); NEUT % 58.7 % (50.0-75.0); NRBC % 0.2 % (0.0-2.0); RBC 5.74 Mil/uL (4.40-5.90); RED CELL DISTRIBUTION WIDTH 18.5 % (11.5-14.5); WHITE BLOOD COUNT 4.4 K/uL (4.8-10.8)
[2018-08-28 08:12] LABS: INR 1.4; PROTHROMBIN TIME 15.3 SECONDS (9.7-12.2)
[2018-08-28 08:16] LABS: ALB/GLOB RATIO 0.8 (1.0-2.1); ALBUMIN 2.7 g/dL (3.5-5.0); ALT/SGPT 31 U/L (21-72); AST/SGOT 55 U/L (17-59); BLOOD UREA NITROGEN 19 mg/dL (9-20); CALCIUM 8.9 mg/dl (8.6-10.4); GFR NON-AFRICAN AMERICAN 58; LIPASE 28 U/L (23-300)
[2018-08-28 08:29] LABS: BARBITURATES, UR NEGATIVE (NEGATIVE); BENZODIAZEPINES, UR NEGATIVE (NEGATIVE); PHENCYCLIDINE, UR NEGATIVE (NEGATIVE); URINE BACTERIA RARE (<OCC); URINE BILIRUBIN NEGATIVE (NEGATIVE); URINE BLOOD 3+ (NEGATIVE); URINE CLARITY Clear (Clear); URINE COLOR Yellow (YELLOW); URINE GLUCOSE (UA) NORMAL (Normal); URINE LEUKOCYTE ESTERASE NEG Leu/uL (Negative); URINE PROTEIN NEGATIVE (NEGATIVE)
--- NOTE | 2018-08-28 08:54 | RAD ---
Date of service: 08/28/2018 PROCEDURE: CHEST RADIOGRAPH, 1 VIEW HISTORY: AMS COMPARISON: 06/23/2018 FINDINGS: LUNGS: Left lung hyperinflated as before para right lung smaller than left lower limits of. No consolidation appreciated. PLEURA: No pneumothorax or pleural fluid seen. CARDIOVASCULAR: No gross aortic atherosclerotic calcification present. Cardiomegaly present similar. Tortuous thoracic aorta-similar. Mild pulmonary venous congestion suspect-probably similar OSSEOUS STRUCTURES: bilateral multiple old rib fractured healed deformities VISUALIZED UPPER ABDOMEN: Normal. OTHER FINDINGS: None. IMPRESSION: Cardiomegaly and mild pulmonary venous congestion both findings appear similar. No interval infiltrate. Multiple old bilateral healed rib fracture deformities
[2018-08-28 08:55] LABS: OPIATES, UR POSITIVE (NEGATIVE)
[2018-08-28] MEDS ORDERED: Naloxone 0.4 mg/ml Inj (Adult) IV STA (08:57)
[2018-08-28] MEDS ORDERED: Naloxone 0.4 mg/ml Inj (Adult) ONE (09:10)
--- NOTE | 2018-08-28 09:10 | CT ---
Date of service: 08/28/2018 PROCEDURE: CT HEAD WITHOUT CONTRAST. HISTORY: AMS COMPARISON: 06/24/2018 TECHNIQUE: Axial computed tomography images were obtained through the head/brain without intravenous contrast. Radiation dose: Total exam DLP = 1073.18 mGy-cm. This CT exam was performed using one or more of the following dose reduction techniques: Automated exposure control, adjustment of the mA and/or kV according to patient size, and/or use of iterative reconstruction technique. FINDINGS: HEMORRHAGE: No intracranial hemorrhage. BRAIN: No mass effect or edema. Marked cerebral atrophy greater than expected for patient's age is similar. 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 No interval pathology noted. VENTRICLES: Unremarkable. No hydrocephalus. CALVARIUM: Unremarkable. PARANASAL SINUSES: Minimal ethmoidal sinus mucosal inflammatory changes. No significant air-fluid levels noted. MASTOID AIR CELLS: Unremarkable as visualized. No inflammatory changes. OTHER FINDINGS: None. IMPRESSION: No intracranial hemorrhage or mass effect. Marked cerebral atrophy greater than expected for patient's age-a similar status for this patient. No interval change appreciated
[2018-08-28 09:22] LABS: VENOUS BLOOD GAS PCO2 49 mmHg (40-60); VENOUS BLOOD GAS PO2 16 mm/Hg (30-55); VENOUS BLOOD PH 7.41 (7.32-7.43)
[2018-08-28 09:23] LABS: VENOUS BLOOD GAS BASE EXCESS 5.3 mmol/L (0.0-2.0)
[2018-08-28] MEDS ORDERED: Sodium Chloride 0.9% 1,000 ML ONE (15:44)
[2018-08-28] MEDS ORDERED: Enoxaparin 40 mg Syringe ONE (15:44)
[2018-08-28] MEDS: Enoxaparin 40 mg Syringe SC SCH (15:45)
[2018-08-28] MEDS: Sodium Chloride 0.45% 1,000 ML IV SCH (15:45)
--- NOTE | 2018-08-28 17:33 | CP.PCM.HP ---
History of Present Illness - History of Present Illness History of Present Illness: 52-year-old male with history of asthma, anxiety, substance abuse presents to emergency room after being found unresponsive. Patient is chronically on opioids and received a dose of Narcan in the emergency room which reports the effect of opiates transiently. Patient is arousable in no distress. Present on Admission - Present on Admission Any Indicators Present on Admission: No History of DVT/PE: No History of Uncontrolled Diabetes: No Urinary Catheter: No Decubitus Ulcer Present: No Review of Systems - Review of Systems All systems: reviewed and no additional remarkable complaints except (as m entioned in HPI) Past Patient History - Infectious Disease Hx of Infectious Diseases: None - Tetanus Immunizations Tetanus Immunization: Unknown - Past Medical History & Family History Past Medical History?: Yes - Past Social History Smoking Status: Never Smoked - CARDIAC Hx Hypertension: Yes - PULMONARY Hx Chronic Obstructive Pulmonary Disease (COPD): Yes - NEUROLOGICAL Hx Seizures: No - HEENT Hx HEENT Problems: Yes Other/Comment: eyes sensitive to light wears dark glasssess inside, but denies eye problems. - RENAL Hx Chronic Kidney Disease: No - ENDOCRINE/METABOLIC Hx Endocrine Disorders: No - HEMATOLOGICAL/ONCOLOGICAL Hx Human Immunodeficiency Virus (HIV): No - INTEGUMENTARY Hx Dermatological Problems: No - MUSCULOSKELETAL/RHEUMATOLOGICAL Hx Fractures: Yes (ribs) - GASTROINTESTINAL Hx Gastritis: Yes - GENITOURINARY/GYNECOLOGICAL Hx Sexually Transmitted Disorders: No - PSYCHIATRIC Hx Anxiety: Yes Hx Bipolar Disorder: Yes Hx Depression: Yes Hx Substance Use: Yes ((+) opiates/toxicology) - SURGICAL HISTORY Hx Coronary Stent: Yes - ANESTHESIA Hx Anesthesia: Yes Hx Anesthesia Reactions: No Hx Malignant Hyperthermia: No Meds Allergies/Adverse Reactions: Allergies Allergy/AdvReac Type Severity Reaction Status Date / Time iv contrast Allergy Mild ITCHING Uncoded 03/06/18 12:22 Physical Exam - Head Exam Head Exam: ATRAUMATIC, NORMAL INSPECTION, NORMOCEPHALIC - Eye Exam Eye Exam: Normal appearance - ENT Exam ENT Exam: Mucous Membranes Moist - Respiratory Exam Respiratory Exam: Clear to Auscultation Bilateral, NORMAL BREATHING PATTERN - Cardiovascular Exam Cardiovascular Exam: REGULAR RHYTHM, +S1, +S2 - GI/Abdominal Exam GI & Abdominal Exam: Normal Bowel Sounds, Soft - Extremities Exam Extremities exam: Positive for: normal inspection Results - Vital Signs Recent Vital Signs: Last Vital Signs Temp 97.6 F 08/28/18 17:00 Pulse 74 08/28/18 17:00 Resp 19 08/28/18 17:00 BP 112/76 08/28/18 17:00 Pulse Ox 96 08/28/18 17:00 - Labs Result Diagrams: 08/28/18 07:58 08/28/18 07:58 Labs: Laboratory Results - last 24 hr 08/28/18 08/28/18 08/28/18 07:26 07:54 07:58 WBC 4.4 L RBC 5.74 Hgb 14.3 Hct 44.0 MCV 76.7 L MCH 25.0 L MCHC 32.5 L RDW 18.5 H Plt Count 109 L MPV 9.6 Neut % (Auto) 58.7 Lymph % (Auto) 26.3 [place] % (Auto) 13.4 H Eos % (Auto) 0.4 Baso % (Auto) 1.2 Neut # (Auto) 2.6 Lymph # (Auto) 1.2 [place] # (Auto) 0.6 Eos # (Auto) 0.0 Baso # (Auto) 0.1 Differential Comment PT INR APTT pO2 16 L VBG pH 7.41 VBG pCO2 49 VBG HCO3 27.0 VBG Total CO2 32.6 H VBG O2 Sat (Calc) 18.0 L VBG Base Excess 5.3 H VBG Potassium 4.2 Sodium 140.0 Chloride 103.0 Lactate 1.6 Potassium Carbon Dioxide Anion Gap BUN Creatinine Est GFR ( Amer) Est GFR (Non-Af Amer) POC Glucose (mg/dL) 105 Random Glucose Calcium Total Bilirubin AST ALT Alkaline Phosphatase Ammonia Total Creatine Kinase Troponin I Total Protein Albumin Globulin Albumin/Globulin Ratio Lipase Venous Blood Potassium 4.2 Urine Color Urine Clarity Urine pH Ur Specific [place] Urine Protein Urine Glucose (UA) Urine Ketones Urine Blood Urine Nitrate Urine Bilirubin Urine Urobilinogen Ur Leukocyte Esterase Urine WBC (Auto) Urine RBC (Auto) Urine Bacteria Urine Opiates Screen Urine Methadone Screen Ur Barbiturates Screen Ur Phencyclidine Scrn Ur Amphetamines Screen U Benzodiazepines Scrn U Oth Cocaine Metabols U Cannabinoids Screen Alcohol, Quantitative 08/28/18 08/28/18 08/28/18 07:58 07:58 07:58 WBC RBC Hgb Hct MCV MCH MCHC RDW Plt Count MPV Neut % (Auto) Lymph % (Auto) [place] % (Auto) Eos % (Auto) Baso % (Auto) Neut # (Auto) Lymph # (Auto) [place] # (Auto) Eos # (Auto) Baso # (Auto) Differential Comment PT 15.3 H INR 1.4 APTT 36 H pO2 VBG pH VBG pCO2 VBG HCO3 VBG Total CO2 VBG O2 Sat (Calc) VBG Base Excess VBG Potassium Sodium 138 Chloride 100 Lactate Potassium 4.4 Carbon Dioxide 30 Anion Gap 12 BUN 19 Creatinine 1.3 Est GFR ( Amer) > 60 Est GFR (Non-Af Amer) 58 POC Glucose (mg/dL) Random Glucose 106 Calcium 8.9 Total Bilirubin 1.7 H AST 55 ALT 31 Alkaline Phosphatase 126 D Ammonia 53 H Total Creatine Kinase 122 Troponin I < 0.0120 Total Protein 6.3 Albumin 2.7 L D Globulin 3.5 Albumin/Globulin Ratio 0.8 L Lipase 28 Venous Blood Potassium Urine Color Urine Clarity Urine pH Ur Specific [place] Urine Protein Urine Glucose (UA) Urine Ketones Urine Blood Urine Nitrate Urine Bilirubin Urine Urobilinogen Ur Leukocyte Esterase Urine WBC (Auto) Urine RBC (Auto) Urine Bacteria Urine Opiates Screen Urine Methadone Screen Ur Barbiturates Screen Ur Phencyclidine Scrn Ur Amphetamines Screen U Benzodiazepines Scrn U Oth Cocaine Metabols U Cannabinoids Screen Alcohol, Quantitative < 10 08/28/18 08/28/18 08:04 08:04 WBC RBC Hgb Hct MCV MCH MCHC RDW Plt Count MPV Neut % (Auto) Lymph % (Auto) [place] % (Auto) Eos % (Auto) Baso % (Auto) Neut # (Auto) Lymph # (Auto) [place] # (Auto) Eos # (Auto) Baso # (Auto) Differential Comment PT INR APTT pO2 VBG pH VBG pCO2 VBG HCO3 VBG Total CO2 VBG O2 Sat (Calc) VBG Base Excess VBG Potassium Sodium Chloride Lactate Potassium Carbon Dioxide Anion Gap BUN Creatinine Est GFR ( Amer) Est GFR (Non-Af Amer) POC Glucose (mg/dL) Random Glucose Calcium Total Bilirubin AST ALT Alkaline Phosphatase Ammonia Total Creatine Kinase Troponin I Total Protein Albumin Globulin Albumin/Globulin Ratio Lipase Venous Blood Potassium Urine Color Yellow Urine Clarity Clear Urine pH 6.0 Ur Specific [place] 1.008 Urine Protein Negative Urine Glucose (UA) Normal Urine Ketones Negative Urine Blood 3+ H Urine Nitrate Negative Urine Bilirubin Negative Urine Urobilinogen 4.0 Ur Leukocyte Esterase Neg Urine WBC (Auto) 2 Urine RBC (Auto) 58 H Urine Bacteria Rare Urine Opiates Screen Positive H Urine Methadone Screen Negative Ur Barbiturates Screen Negative Ur Phencyclidine Scrn Negative Ur Amphetamines Screen Negative U Benzodiazepines Scrn Negative U Oth Cocaine Metabols Negative U Cannabinoids Screen Negative Alcohol, Quantitative Assessment & Plan (1) Acute narcotic intoxication Status: Acute (2) Excessive sleepiness Status: Acute (3) Chronic pain Status: Acute (4) COPD (chronic obstructive pulmonary disease) Status: Chronic - Assessment and Plan (Free Text) Plan: IV fluids N.p.o. Hold narcotics Supportive care DVT/GI prophylaxis
[2018-08-29] MEDS: DiphenhydrAMINE 50 mg/ml Inj IVP STA (01:10)
[2018-08-29 01:13] VITALS: RESP 20
[2018-08-29] MEDS: Sodium Chloride 0.45% 1,000 ML IV SCH ×2 (01:16→04:37)
[2018-08-29] MEDS ORDERED: Influenza Vaccine 60 MCG/0.5 ML SYR (3 yr & up) IM ONE (10:00)
[2018-08-29] MEDS: Enoxaparin 40 mg Syringe SC SCH (10:59)
--- NOTE | 2018-08-29 13:14 | CP.PCM.PN ---
Subjective - Date & Time of Evaluation Date of Evaluation: 08/29/18 Time of Evaluation: 13:12 - Subjective Subjective: Patient is seen and examined More awake Objective - Vital Signs/Intake and Output Vital Signs (last 24 hours): Temp Pulse Resp BP Pulse Ox 98.3 F 75 20 107/78 96 08/29/18 07:15 08/29/18 07:15 08/29/18 07:15 08/29/18 07:15 08/29/18 12:12 Intake and Output: 08/29/18 08/29/18 06:59 18:59 Intake Total 1000 Output Total 300 Balance 700 - Medications Medications: Current Medications Enoxaparin Sodium (Lovenox) 40 mg SC DAILY [facility] Last Admin: 08/29/18 10:59 Dose: 40 mg Sodium Chloride (Sodium Chloride 0.45%) 1,000 mls @ 75 mls/hr IV .[id number] [facility] Last Admin: 08/29/18 04:37 Dose: Not Given Ketorolac Tromethamine (Toradol) 10 mg PO Q6 PRN PRN Reason: Pain, moderate (4-7) Last Admin: 08/29/18 10:59 Dose: 10 mg - Labs Labs: 08/28/18 07:58 08/28/18 07:58 PT 15.3 SECONDS (9.7-12.2) H 08/28/18 07:58 INR 1.4 08/28/18 07:58 APTT 36 SECONDS (21-34) H 08/28/18 07:58 - Head Exam Head Exam: NORMAL INSPECTION - Eye Exam Eye Exam: Normal appearance - ENT Exam ENT Exam: Mucous Membranes Moist - Respiratory Exam Respiratory Exam: Clear to Ausculation Bilateral - Cardiovascular Exam Cardiovascular Exam: REGULAR RHYTHM, +S1, +S2 - GI/Abdominal Exam GI & Abdominal Exam: Soft, Normal Bowel Sounds Assessment and Plan (1) Acute narcotic intoxication Status: Acute (2) Excessive sleepiness Status: Acute (3) Chronic pain Status: Acute (4) COPD (chronic obstructive pulmonary disease) Status: Chronic - Assessment and Plan (Free Text) Plan: Bronchodilators Continue IV fluids Patient is tolerating feeds He is drowsy but easily arousable Psychiatry consult DVT/GI prophylaxis
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
[2018-08-29] MEDS ORDERED: Oxycodone/Acetaminophen 5/325 mg Tab PO ONE (16:00)
[2018-08-29 23:16] VITALS: O2SAT 97
--- NOTE | 2018-08-29 23:57 | CARD ---
APPROVED REPORT Date of service: 08/28/2018 EKG Measurement Heart [id number] <Conclusion> Normal sinus rhythm Right superior axis deviation Possible Right ventricular hypertrophy Septal infarct, age undetermined ST & T wave abnormality, consider inferior ischemia ST & T wave abnormality, consider anterolateral ischemia Abnormal ECG
[2018-08-30] MEDS: Sodium Chloride 0.45% 1,000 ML IV SCH (07:24)
[2018-08-30 07:42] VITALS: PULSE 71
[2018-08-30 09:17] VITALS: BP 132/83; TEMP 98.1
[2018-08-30] MEDS: Enoxaparin 40 mg Syringe SC SCH (09:36)
--- NOTE | 2018-08-30 11:27 | PCM.PYCHPN ---
Psychiatric Progress Note - Psychiatric Progress Note Patient Chief Complaint: "I'm OK" Problems Identified/Issues Discussed: Cleared for d/c Mental Status Examination - Cognitive Function Orientation: Person, Place, Time - Mood Mood: Anxious - Affect Affect: Constricted - Formal Thought Process Formal Thought Process: Loosening of associations Goal/Treatment Plan - Goal/Treatment Plan Progress Toward Problem(s) and Goals/Treatment Plan: Monitor opioid withdrawal, use COWS scale Start methadone, ie 15 mg x1 po, if he starts to withdraw (pt claims he doesn't) Monitor CIWA Support and psychoed Will follow 33 min
== END 2018-08-30 14:00 | disposition left against medical advice (07) ==
LOC: C.ER 07:18 → C.9E 09:29 → C.6T 16:52
PROVIDERS: ADMIT Internal Medicine Critical Care Medicine; ATTEND Internal Medicine Critical Care Medicine
DX: F11.23 Opioid dependence with withdrawal (principal); J44.9 Chronic obstructive pulmonary disease, unspecified; I10 Essential (primary) hypertension; F31.9 Bipolar disorder, unspecified; F17.210 Nicotine dependence, cigarettes, uncomplicated; Z95.5 Presence of coronary angioplasty implant and graft
CPT/HCPCS: 70450; 71045; 80053; 81001; 82140; 82550; 82803; 82948; 83690; 84484; 85025; 85610; 85730; 90674; 92526; 92610; 93005; 96372; 99285; G0008; G0378; G0480; G8996; G8997; J1200; J1650; J2310; J7030

== ENCOUNTER 2018-08-30 20:28 | Inpatient (IN) | payer MEDICARE, OTHER ==
[2018-08-30 20:29] VITALS: BMI 29.5
--- NOTE | 2018-08-30 20:35 | C.PDOC ---
History Of Present Illness The patient is brought to the ED by EMS for evaluation of altered mental status noted today. As per EMS, patient's called the ambulance after finding patient unresponsive. Review of prior records shows patient was recently disch arged from this hospital for numerous accidental opiod related overdoses. In the ED, patient appears very sleepy but is arousable with stimuli. Patient denies any complaints at this time. Time Seen by Provider: 08/30/18 20:34 History Per: Patient, EMS History/Exam Limitations: None Onset/Duration Of Symptoms: Hrs Onset Of Symptoms: Cannot Confirm Onset Current Symptoms Are (Timing): Still Present Usual Baseline: Alert Oriented Exacerbating Factor(s): Unknown Use Of Anticoag/Antiplatelets: No Severity: Severe Pain Scale Rating Of: 8 Recent travel outside of the [place]: No Additional History Per: Patient, EMS Associated Symptoms: denies: Fever, Chills, Chest Pain, Seizure Past Medical History Reviewed: Historical Data, Nursing Documentation, Vital Signs - Medical History PMH: Anxiety, Asthma, Bipolar Disorder, COPD, Depression, Fractures (ribs), Gastritis, HTN, Chronic Pain Denies: HIV, Chronic Kidney Disease, Seizures, Sexually Transmitted Disease Surgical History: Coronary Stent, Endoscopy - [facility] Procedures DETOXIFICATION SERVICES FOR SUBSTANCE ABUSE TREATMENT (12/14/15) INJECT/INFUSE NEC (01/28/15) NEBULIZER THERAPY (01/28/15) Family History: States: Unknown Family Hx - Social History Hx Tobacco Use: Yes Hx Alcohol Use: Yes (etoh abuse) Hx Substance Use: Yes ((+) opiates/toxicology) - Immunization History Hx Tetanus Toxoid Vaccination: No Hx Influenza Vaccination: No Hx Pneumococcal Vaccination: No Review Of Systems Constitutional: Negative for: Fever, Chills ENT: Negative for: Throat Pain Cardiovascular: Negative for: Chest Pain, Palpitations Respiratory: Negative for: Cough, Shortness of Breath Gastrointestinal: Negative for: Nausea, Vomiting, Abdominal Pain Genitourinary: Negative for: Dysuria, Frequency Skin: Negative for: Rash, Lesions, Jaundice, Bruising Neurological: Positive for: Altered Mental Status. Negative for: Change in Speech, Confusion, Headache, Dizziness Psych: Negative for: Anxiety Physical Exam - Physical Exam Appears: In Acute Distress Skin: Warm, Dry, Ecchymosis (numerous, to left shoulder, chest and bilateral knees ) Head: Abrasion (numerous, old, to facial region ), No Other (active bleeding ) Eye(s): bilateral: Other (pinpoint, reactive ) Oral Mucosa: Dry Neck: Supple Chest: Symmetrical, No Deformity, No Tenderness Cardiovascular: Rhythm Regular, No Murmur Respiratory: No Rales, No Rhonchi, No Wheezing Gastrointestinal/Abdominal: Bowel Sounds (good ), Soft, No Tenderness, No Guarding, No Rebound Back: Normal Inspection Extremity: Normal ROM (moving all extremities x4), Pedal Edema (bilaterally ), Capillary Refill (less than 2 seconds ) Pulses: Left Dorsalis Pedis: Normal, Right Dorsalis Pedis: Normal Neurological/Psych: Slow To Respond With Command Gait: Unable To Assess ED Course And Treatment - Laboratory Results Result Diagrams: 08/30/18 21:15 08/30/18 23:00 ECG: Interpreted By Me, Viewed By Me ECG Rhythm: Sinus Rhythm (94), R BBB, Nonspecific Changes O2 Sat by Pulse Oximetry: 90 Pulse Ox Interpretation: Abnormal - Radiology CXR: Interpreted by Me, Viewed By Me CXR Interpretation: Yes: Cardiomegaly, Other (mild vasc congestion). No: Infiltrates, Fracture Progress Note: Bloodwork, urinalysis, CXR, CT Head, EKG ordered and reviewed. IV Fluids administered. Critical Care Time - Critical Care Note Total Time (in mins): 30 Documented critical care: time excludes all time spent performing seperately billable procedures. Disposition Discussed With : Nabil Johansen Comment: accepted the pt on his service and took over the care at 11:28 PM Doctor Will See Patient In The: Hospital Counseled Patient/Family Regarding: Studies Performed, Diagnosis - Disposition Disposition: HOSPITALIZED Disposition Time: 20:35 Condition: GUARDED - POA Present On Arrival: None - Clinical Impression Clinical Impression: Opiate overdose, Multiple contusions - Scribe Statement The provider has reviewed the documentation as recorded by the Scribe (Idania Gorman) Provider Attestation: All medical record entries made by the Scribe were at my direction and personally dictated by me. I have reviewed the chart and agree that the record accurately reflects my personal performance of the history, physical exam, medical decision making, and the department course for this patient. I have also personally directed, reviewed, and agree with the discharge instructions and dis position. Decision To Admit - Pt Status Changed To: Hospital Disposition Of: Inpatient - Admit Certification Admit to Inpatient:: After my assessment, the patient will require hospita lization for at least two midnights. This is because of the severity of symptoms shown, intensity of services needed, and/or the medical risk in this patient being treated as an outpatient. - InPatient: Physician Admission Certification:: After my assessment, the patient will require hospitalization for at least two midnights. This is because of the severity of symptoms shown, intensity of services needed, and/or the medical risk in this patient being treated as an outpatient. - . Bed Request Type: Telemetry Admitting Physician: Nabil Johansen Patient Diagnosis: Opiate overdose, Multiple contusions
[2018-08-30] MEDS ORDERED: Sodium Chloride 0.9% 1,000 ML IV ONE (20:36)
[2018-08-30 20:53] LABS: ABG ALLEN TEST POS; ARTERIAL BLOOD GAS O2 SAT 94.3 % (95-98); ARTERIAL BLOOD GAS PCO2 35 mm/Hg (35-45); ARTERIAL BLOOD GAS PH 7.34 (7.35-7.45); ARTERIAL BLOOD GAS PO2 66 mm/Hg (80-100)
[2018-08-30 21:28] LABS: BASO # 0.1 K/uL (0.0-0.2); NRBC % 0.1 % (0.0-2.0); RBC 5.98 Mil/uL (4.40-5.90); WHITE BLOOD COUNT 10.2 K/uL (4.8-10.8)
[2018-08-30 21:37] LABS: EOS % 0.4 % (0.0-4.0); LYMPH % 9.5 % (20.0-40.0); MEAN CELL VOLUME 78.2 fL (80.0-94.0); MEAN CORPUSCULAR HEMOGLOBIN 25.1 pg (27.0-31.0); MEAN CORPUSCULAR HGB CONC 32.1 g/dL (33.0-37.0); MEAN PLATELET VOLUME 9.5 fL (7.2-11.7); MONO # 0.7 K/uL (0.0-0.8); MONO % 7.3 % (0.0-10.0); NEUT # 8.3 K/uL (1.8-7.0); NEUT % 81.8 % (50.0-75.0); RED CELL DISTRIBUTION WIDTH 19.4 % (11.5-14.5)
[2018-08-30 21:38] LABS: PLATELET COUNT 99 K/uL (130-400)
[2018-08-30 21:57] LABS: URINE BACTERIA FEW (<OCC); URINE BILIRUBIN NEGATIVE (NEGATIVE); URINE BLOOD 3+ (NEGATIVE); URINE CLARITY Hazy (Clear); URINE COLOR Amber (YELLOW); URINE GLUCOSE (UA) NORMAL (Normal); URINE LEUKOCYTE ESTERASE TRACE Leu/uL (Negative); URINE PROTEIN 3+ mg/dL (NEGATIVE)
[2018-08-30 22:00] LABS: BANDS 1 % (0-2); BASOPHIL 1 % (0-2); EOSINOPHIL 1 % (0-4); LYMPHOCYTE 10 % (20-40); MONOCYTE 7 % (0-10); NEUTROPHIL 80 % (50-75); TOTAL CELLS COUNTED 100
[2018-08-30 22:01] LABS: PLATELET ESTIMATE SLIGHTLY DECREASED (NORMAL)
[2018-08-30] MEDS ORDERED: Piperacillin/Tazobact 3.375 gm 100 ML IVPB STA (22:06)
[2018-08-30 22:16] LABS: PROTHROMBIN TIME > 320.0 SECONDS (9.7-12.2)
[2018-08-30] MEDS ORDERED: Piperacillin/Tazobact 3.375 gm 100 ML IVPB ONE (22:16)
[2018-08-30 22:17] LABS: INR > 10.0
[2018-08-30 22:18] LABS: PARTIAL THROMBOPLASTIN TIME > 400 SECONDS (21-34)
[2018-08-30 22:20] LABS: BARBITURATES, UR NEGATIVE (NEGATIVE); BENZODIAZEPINES, UR NEGATIVE (NEGATIVE); PHENCYCLIDINE, UR NEGATIVE (NEGATIVE)
[2018-08-30 22:39] LABS: OPIATES, UR POSITIVE (NEGATIVE)
[2018-08-30 23:21] LABS: INR 1.6
[2018-08-30 23:24] LABS: ALB/GLOB RATIO 0.8 (1.0-2.1); ALBUMIN 2.8 g/dL (3.5-5.0); ALT/SGPT 40 U/L (21-72); AST/SGOT 71 U/L (17-59); BLOOD UREA NITROGEN 18 mg/dL (9-20); CALCIUM 8.4 mg/dl (8.6-10.4); GFR NON-AFRICAN AMERICAN > 60
[2018-08-31] MEDS: Sodium Chloride 0.45% 1,000 ML IV SCH ×3 (00:35→18:04)
[2018-08-31 03:33] LABS: ARTERIAL BLOOD GAS HCO3 21.3 mmol/L (21-28); ARTERIAL BLOOD GAS PCO2 30 mm/Hg (35-45); ARTERIAL BLOOD GAS PH 7.41 (7.35-7.45); ARTERIAL BLOOD GAS PO2 65 mm/Hg (80-100); ARTERIAL BLOOD GAS TCO2 19.9 mmol/L (22-28)
--- NOTE | 2018-08-31 08:45 | RAD ---
Chest x-ray single frontal view HISTORY: Altered mental status. COMPARISON: 03/06/2018 FINDINGS: Moderate venous congestion. Scattered parenchymal opacities in both lung glover. Lucency projects over the midline trachea likely related to prior tracheostomy tube site. Clinical correlation. Prominent mediastinum suggestive for enlarged ectatic aorta. Cardiomegaly. Bilateral hilar prominence. Deformities of several left lateral ribs. IMPRESSION: Moderate venous congestion. Scattered parenchymal opacities in both lung glover. Lucency projects over the midline trachea likely related to prior tracheostomy tube site. Clinical correlation. Prominent mediastinum suggestive for enlarged ectatic aorta. Cardiomegaly. Bilateral hilar prominence. Deformities of several left lateral ribs.
--- NOTE | 2018-08-31 08:53 | CT ---
Date of service: 08/30/2018 PROCEDURE: CT HEAD WITHOUT CONTRAST. HISTORY: AMS COMPARISON: None available. TECHNIQUE: Axial computed tomography images were obtained through the head/brain without intravenous contrast. Radiation dose: Total exam DLP = 2530.36 mGy-cm. This CT exam was performed using one or more of the following dose reduction techniques: Automated exposure control, adjustment of the mA and/or kV according to patient size, and/or use of iterative reconstruction technique. Please note that the examination is markedly limited by extensive patient motion artifact despite rescanning of the patient at this time. FINDINGS: HEMORRHAGE: No intracranial hemorrhage. BRAIN: No mass effect or edema. No atrophy or chronic microvascular ischemic changes. VENTRICLES: Unremarkable. No hydrocephalus. CALVARIUM: Unremarkable. PARANASAL SINUSES: Unremarkable as visualized. No significant inflammatory changes. MASTOID AIR CELLS: Unremarkable as visualized. No inflammatory changes. OTHER FINDINGS: None. IMPRESSION: No intracranial mass, hemorrhage or evidence of acute infarct. Limited examination. See above. The preliminary findings for this examination were reported by [facility] at 10:58 p.m. on 08/30/2018. There is concurrence of this report with the preliminary findings.
[2018-08-31] MEDS ORDERED: Enoxaparin 40 mg Syringe SC SCH (10:00)
--- NOTE | 2018-08-31 12:33 | CARD ---
APPROVED REPORT Date of service: 08/30/2018 EKG Measurement Heart [id number] <Conclusion> Normal sinus rhythm Right superior axis deviation Incomplete right bundle branch block Right ventricular hypertrophy with repolarization abnormality Inferior infarct, age undetermined Cannot rule out Anterior infarct, age undetermined Abnormal ECG
[2018-08-31 15:51] VITALS: RESP 20
[2018-08-31 18:32] LABS: URINE BACTERIA OCC (<OCC); URINE BILIRUBIN NEGATIVE (NEGATIVE); URINE BLOOD 3+ (NEGATIVE); URINE CLARITY Hazy (Clear); URINE COLOR Amber (YELLOW); URINE GLUCOSE (UA) NORMAL (Normal); URINE LEUKOCYTE ESTERASE NEG Leu/uL (Negative); URINE PROTEIN 2+ mg/dL (NEGATIVE)
[2018-08-31] MEDS ORDERED: Naloxone 0.4 mg/ml Inj (Adult) ONE (18:48)
[2018-08-31] MEDS ORDERED: Naloxone 0.4 mg/ml Inj (Adult) IVP ONE (19:04)
[2018-08-31] MEDS ORDERED: DiphenhydrAMINE 50 mg/ml Inj IVP STA (19:15)
--- NOTE | 2018-08-31 19:17 | CP.PCM.HP ---
Past Patient History - Infectious Disease Hx of Infectious Diseases: None - Tetanus Immunizations Tetanus Immunization: Unknown - Past Medical History & Family History Past Medical History?: Yes - Past Social History Smoking Status: Never Smoked - CARDIAC Hx Hypertension: Yes - PULMONARY Hx Chronic Obstructive Pulmonary Disease (COPD): Yes - NEUROLOGICAL Hx Neurological Disorder: No Hx Seizures: No - HEENT Hx HEENT Problems: Yes Other/Comment: eyes sensitive to light wears dark glasssess inside, but denies eye problems. - RENAL Hx Chronic Kidney Disease: No - ENDOCRINE/METABOLIC Hx Endocrine Disorders: No - HEMATOLOGICAL/ONCOLOGICAL Hx Blood Disorders: No Hx Human Immunodeficiency Virus (HIV): No - INTEGUMENTARY Hx Dermatological Problems: No - MUSCULOSKELETAL/RHEUMATOLOGICAL Hx Falls: Yes - GASTROINTESTINAL Hx Gastrointestinal Disorders: Yes Hx Gastritis: Yes - GENITOURINARY/GYNECOLOGICAL Hx Genitourinary Disorders: No Hx Sexually Transmitted Disorders: No - PSYCHIATRIC Hx Substance Use: Yes - SURGICAL HISTORY Hx Surgeries: Yes Hx Coronary Stent: Yes - ANESTHESIA Hx Anesthesia: Yes Hx Anesthesia Reactions: No Hx Malignant Hyperthermia: No Meds Allergies/Adverse Reactions: Allergies Allergy/AdvReac Type Severity Reaction Status Date / Time iv contrast Allergy Mild ITCHING Uncoded 03/06/18 12:22 Results - Vital Signs Recent Vital Signs: Last Vital Signs Temp 98.5 F 08/31/18 15:50 Pulse 81 08/31/18 15:50 Resp 20 08/31/18 15:50 BP 99/67 L 08/31/18 15:50 Pulse Ox 95 08/31/18 15:50 - Labs Result Diagrams: 08/30/18 21:15 08/30/18 23:00 Labs: Laboratory Results - last 24 hr 08/30/18 08/30/18 08/30/18 20:50 21:15 21:15 WBC 10.2 D RBC 5.98 H Hgb 15.0 Hct 46.8 MCV 78.2 L MCH 25.1 L MCHC 32.1 L RDW 19.4 H Plt Count 99 L MPV 9.5 Neut % (Auto) 81.8 H Lymph % (Auto) 9.5 L Chambers % (Auto) 7.3 Eos % (Auto) 0.4 Baso % (Auto) 1.0 Neut # (Auto) 8.3 H Lymph # (Auto) 1.0 Chambers # (Auto) 0.7 Eos # (Auto) 0.0 Baso # (Auto) 0.1 Neutrophils % (Manual) 80 H Band Neutrophils % 1 Lymphocytes % (Manual) 10 L Monocytes % (Manual) 7 Eosinophils % (Manual) 1 Basophils % (Manual) 1 Platelet Estimate Slightly decreased L PT > 320.0 H D INR > 10.0 H* D APTT > 400 H* D Puncture Site Rra pCO2 35 pO2 66 L HCO3 20.0 L ABG pH 7.34 L ABG Total CO2 20.0 L ABG O2 Saturation 94.3 L ABG Base Excess -6.1 L Maikel Test Pos ABG Potassium 4.2 A-a O2 Difference 147.0 Respiratory Index 2.2 Sodium 138.0 Chloride 109.0 H Glucose 108 Lactate 1.6 Liter Flow 4.0 FiO2 36.0 Potassium Carbon Dioxide Anion Gap BUN Creatinine Est GFR ( Amer) Est GFR (Non-Af Amer) Random Glucose Lactic Acid Calcium Total Bilirubin AST ALT Alkaline Phosphatase Ammonia Total Protein Albumin Globulin Albumin/Globulin Ratio Arterial Blood Potassium 4.2 Urine Color Urine Clarity Urine pH Ur Specific [place] Urine Protein Urine Glucose (UA) Urine Ketones Urine Blood Urine Nitrate Urine Bilirubin Urine Urobilinogen Ur Leukocyte Esterase Urine WBC (Auto) Urine RBC (Auto) Urine Bacteria Urine Opiates Screen Urine Methadone Screen Ur Barbiturates Screen Ur Phencyclidine Scrn Ur Amphetamines Screen U Benzodiazepines Scrn U Oth Cocaine Metabols U Cannabinoids Screen 08/30/18 08/30/18 08/30/18 21:38 21:38 23:00 WBC RBC Hgb Hct MCV MCH MCHC RDW Plt Count MPV Neut % (Auto) Lymph % (Auto) Chambers % (Auto) Eos % (Auto) Baso % (Auto) Neut # (Auto) Lymph # (Auto) Chambers # (Auto) Eos # (Auto) Baso # (Auto) Neutrophils % (Manual) Band Neutrophils % Lymphocytes % (Manual) Monocytes % (Manual) Eosinophils % (Manual) Basophils % (Manual) Platelet Estimate PT INR APTT Puncture Site pCO2 pO2 HCO3 ABG pH ABG Total CO2 ABG O2 Saturation ABG Base Excess Maikel Test ABG Potassium A-a O2 Difference Respiratory Index Sodium 138 Chloride 107 Glucose Lactate Liter Flow FiO2 Potassium 4.6 Carbon Dioxide 22 Anion Gap 13 BUN 18 Creatinine 1.1 Est GFR ( Amer) > 60 Est GFR (Non-Af Amer) > 60 Random Glucose 105 Lactic Acid Calcium 8.4 L Total Bilirubin 2.1 H AST 71 H D ALT 40 Alkaline Phosphatase 128 H Ammonia Total Protein 6.4 Albumin 2.8 L Globulin 3.6 Albumin/Globulin Ratio 0.8 L Arterial Blood Potassium Urine Color Salma Urine Clarity Hazy Urine pH 6.0 Ur Specific [place] 1.015 Urine Protein 3+ H Urine Glucose (UA) Normal Urine Ketones Negative Urine Blood 3+ H Urine Nitrate Positive H Urine Bilirubin Negative Urine Urobilinogen 2.0 Ur Leukocyte Esterase Trace Urine WBC (Auto) 130 H Urine RBC (Auto) 601 H Urine Bacteria Few H Urine Opiates Screen Positive H Urine Methadone Screen Negative Ur Barbiturates Screen Negative Ur Phencyclidine Scrn Negative Ur Amphetamines Screen Negative U Benzodiazepines Scrn Negative U Oth Cocaine Metabols Negative U Cannabinoids Screen Negative 08/30/18 08/30/18 08/31/18 23:00 23:09 02:18 WBC RBC Hgb Hct MCV MCH MCHC RDW Plt Count MPV Neut % (Auto) Lymph % (Auto) Chambers % (Auto) Eos % (Auto) Baso % (Auto) Neut # (Auto) Lymph # (Auto) Chambers # (Auto) Eos # (Auto) Baso # (Auto) Neutrophils % (Manual) Band Neutrophils % Lymphocytes % (Manual) Monocytes % (Manual) Eosinophils % (Manual) Basophils % (Manual) Platelet Estimate PT 18.0 H D INR 1.6 D APTT 37 H D Puncture Site pCO2 pO2 HCO3 ABG pH ABG Total CO2 ABG O2 Saturation ABG Base Excess Maikel Test ABG Potassium A-a O2 Difference Respiratory Index Sodium Chloride Glucose Lactate Liter Flow FiO2 Potassium Carbon Dioxide Anion Gap BUN Creatinine Est GFR ( Amer) Est GFR (Non-Af Amer) Random Glucose Lactic Acid 2.9 H Calcium Total Bilirubin AST ALT Alkaline Phosphatase Ammonia 40 H D Total Protein Albumin Globulin Albumin/Globulin Ratio Arterial Blood Potassium Urine Color Urine Clarity Urine pH Ur Specific [place] Urine Protein Urine Glucose (UA) Urine Ketones Urine Blood Urine Nitrate Urine Bilirubin Urine Urobilinogen Ur Leukocyte Esterase Urine WBC (Auto) Urine RBC (Auto) Urine Bacteria Urine Opiates Screen Urine Methadone Screen Ur Barbiturates Screen Ur Phencyclidine Scrn Ur Amphetamines Screen U Benzodiazepines Scrn U Oth Cocaine Metabols U Cannabinoids Screen 08/31/18 08/31/18 03:25 18:21 WBC RBC Hgb Hct MCV MCH MCHC RDW Plt Count MPV Neut % (Auto) Lymph % (Auto) Chambers % (Auto) Eos % (Auto) Baso % (Auto) Neut # (Auto) Lymph # (Auto) Chambers # (Auto) Eos # (Auto) Baso # (Auto) Neutrophils % (Manual) Band Neutrophils % Lymphocytes % (Manual) Monocytes % (Manual) Eosinophils % (Manual) Basophils % (Manual) Platelet Estimate PT INR APTT Puncture Site Rb pCO2 30 L pO2 65 L HCO3 21.3 ABG pH 7.41 ABG Total CO2 19.9 L ABG O2 Saturation 95.0 ABG Base Excess -4.5 L Maikel Test Na ABG Potassium 5.0 A-a O2 Difference 97.0 Respiratory Index 1.5 Sodium 136.0 Chloride 109.0 H Glucose 100 Lactate 2.1 Liter Flow FiO2 28.0 Potassium Carbon Dioxide Anion Gap BUN Creatinine Est GFR ( Amer) Est GFR (Non-Af Amer) Random Glucose Lactic Acid Calcium Total Bilirubin AST ALT Alkaline Phosphatase Ammonia Total Protein Albumin Globulin Albumin/Globulin Ratio Arterial Blood Potassium 5.0 Urine Color Salma Urine Clarity Hazy Urine pH 6.0 Ur Specific [place] 1.018 Urine Protein 2+ H Urine Glucose (UA) Normal Urine Ketones Negative Urine Blood 3+ H Urine Nitrate Negative Urine Bilirubin Negative Urine Urobilinogen 4.0 Ur Leukocyte Esterase Neg Urine WBC (Auto) 73 H Urine RBC (Auto) 1097 H Urine Bacteria Occ H Urine Opiates Screen Urine Methadone Screen Ur Barbiturates Screen Ur Phencyclidine Scrn Ur Amphetamines Screen U Benzodiazepines Scrn U Oth Cocaine Metabols U Cannabinoids Screen
--- NOTE | 2018-08-31 20:46 | CP.PCM.PCO ---
Addendum Addendum: 08/31/18 20:39 Paged by nursing to evaluate patient for lethargy and SOB. Patient had a visitor who was feeding patient. When approached by nursing, she abruptly left. patient was on [employer] who did not report seeing visitor give patient anything other than a wiggins bag and food. Security was called to search bag- no paraphernalia found. Patient was on face mask using accessory muscle. Pupils not pinpoint. Patient given .4 Narcan. He became more alert. He continuously stood up out of bed and took off his gown and telemetry leads. He was unable to be redirected verbally. He was only oriented to person. Patient continuously attempted to walk away but was unsteady. Additionally, he attempted to urinate and defecate on the floor. Patient is admitted for opiate overdose. He was given 1 mg Ativan shortly before this episode due to agitation. Patient given 25 mg Benadryl IV and 4 point restraints palced. Patient's lungs were clear to auscultation. He was saturating at 91% on RA and 94% on face mask. He continued to utilize accessory muscles and was tachypneic. Stat CXR ordered. Patient remained on nonrebreather and placed on 1:1. This was endorsed to night on-call resident Dr. Willis Schwab.
[2018-08-31 22:50] LABS: BARBITURATES, UR NEGATIVE (NEGATIVE); BENZODIAZEPINES, UR NEGATIVE (NEGATIVE); PHENCYCLIDINE, UR NEGATIVE (NEGATIVE)
[2018-08-31 22:59] LABS: OPIATES, UR POSITIVE (NEGATIVE)
[2018-09-01] MEDS: Sodium Chloride 0.45% 1,000 ML IV SCH (05:39)
[2018-09-01 08:43] VITALS: BP 110/74; PULSE 73; TEMP 97.8; O2SAT 97
[2018-09-01 09:23] LABS: BASO # 0.1 K/uL (0.0-0.2); BASO % 0.9 % (0.0-2.0); EOS # 0.1 K/uL (0.0-0.7); EOS % 1.3 % (0.0-4.0); LYMPH % 17.1 % (20.0-40.0); MEAN CELL VOLUME 77.6 fL (80.0-94.0); MEAN CORPUSCULAR HGB CONC 32.3 g/dL (33.0-37.0); MEAN PLATELET VOLUME 9.3 fL (7.2-11.7); MONO # 0.8 K/uL (0.0-0.8); MONO % 14.4 % (0.0-10.0); NEUT # 3.8 K/uL (1.8-7.0); NEUT % 66.3 % (50.0-75.0); NRBC % 0.2 % (0.0-2.0); RBC 5.1 Mil/uL (4.40-5.90); RED CELL DISTRIBUTION WIDTH 19.5 % (11.5-14.5); WHITE BLOOD COUNT 5.8 K/uL (4.8-10.8)
[2018-09-01 09:28] LABS: HEMOGLOBIN 12.8 g/dL (12.0-18.0)
[2018-09-01 09:32] LABS: ALB/GLOB RATIO 0.7 (1.0-2.1); ALBUMIN 2.3 g/dL (3.5-5.0); ALT/SGPT 33 U/L (21-72); AST/SGOT 48 U/L (17-59); BLOOD UREA NITROGEN 19 mg/dL (9-20); CALCIUM 8.1 mg/dl (8.6-10.4); GFR NON-AFRICAN AMERICAN > 60
--- NOTE | 2018-09-04 13:31 | RAD ---
Date of service: 08/31/2018 HISTORY: accessory muscle use COMPARISON: 08/30/2018 FINDINGS: LUNGS: No active pulmonary disease. PLEURA: No significant pleural effusion identified, no pneumothorax apparent. CARDIOVASCULAR: Cardiomegaly/pulmonary vascular congestion progressive compared to the prior study. Atherosclerotic calcifications identified primarily aortic arch. OSSEOUS STRUCTURES: No significant abnormalities. VISUALIZED UPPER ABDOMEN: Normal. OTHER FINDINGS: None. IMPRESSION: Worsening CHF/pulmonary vascular congestion.
== END 2018-09-01 12:27 | disposition left against medical advice (07) | DRG 918 ==
LOC: C.ER 20:28 → C.9E 23:25 → C.5S 08-31 01:43
PROVIDERS: ADMIT Internal Medicine Critical Care Medicine; ATTEND Internal Medicine Critical Care Medicine
DX: T40.2X1A Poisoning by other opioids, accidental (unintentional), initial encounter (principal); F31.9 Bipolar disorder, unspecified; I10 Essential (primary) hypertension; J44.9 Chronic obstructive pulmonary disease, unspecified; F41.9 Anxiety disorder, unspecified; G89.29 Other chronic pain; R41.82 Altered mental status, unspecified; Z95.5 Presence of coronary angioplasty implant and graft; Z87.891 Personal history of nicotine dependence

== ENCOUNTER 2018-09-02 16:18 | Emergency (ER) | payer MEDICARE, MEDICAID ==
[2018-09-02 16:26] VITALS: BMI 35.3
[2018-09-02] MEDS ORDERED: Sodium Chloride 0.9% 1,000 ML IV ONE ×2 (16:35→18:35)
--- NOTE | 2018-09-02 16:39 | C.PDOC ---
History Of Present Illness Patient MAVERICK from home, apparently found by a friend on the floor appearing altered. Prior records reviewed, patient had recent admission on 08/28 for opiate overdose, also has h/o alcohol abuse. PMHx asthma/copd, gastritis, HTN, depression/anxiety, chronic pain. Time Seen by Provider: 09/02/18 16:25 Chief Complaint (Nursing): Altered Mental Status History Per: EMS History/Exam Limitations: Clinical Condition Onset/Duration Of Symptoms: Unknown Onset Of Symptoms: Cannot Confirm Onset Current Symptoms Are (Timing): Still Present Usual Baseline: Alert Confused Past Medical History Reviewed: Historical Data, Nursing Documentation, Vital Signs Vital Signs: Last Vital Signs Temp 97.8 F 09/02/18 16:29 Pulse 91 H 09/02/18 16:29 Resp 16 09/02/18 16:29 BP 78/51 L 09/02/18 16:29 Pulse Ox 91 L 09/02/18 16:29 - Medical History PMH: Anxiety, Asthma, Bipolar Disorder, COPD, Depression, Fractures (ribs), Gastritis, HTN, Chronic Pain Surgical History: Coronary Stent, Endoscopy - [facility] Procedures DETOXIFICATION SERVICES FOR SUBSTANCE ABUSE TREATMENT (12/14/15) INJECT/INFUSE NEC (01/28/15) NEBULIZER THERAPY (01/28/15) Family History: States: No Known Family Hx - Social History Hx Tobacco Use: Yes Hx Alcohol Use: Yes Hx Substance Use: Yes - Immunization History Hx Tetanus Toxoid Vaccination: No Hx Influenza Vaccination: No Hx Pneumococcal Vaccination: No Review Of Systems Review Of Systems: ROS cannot be obtained secondary to pt's inabilty to answer questions. Physical Exam - Physical Exam Appears: Well (nasal bridge), Other (drowsy appearing but awake) Skin: Other (diffuse ecchymoses on B/L arms, abdomen, face) Head: Abrasion Eye(s): bilateral: EOMI, Other (pinpoint pupuls B/L ) Oral Mucosa: Moist Cardiovascular: Rhythm Regular Respiratory: Normal Breath Sounds, No Rales, No Rhonchi, No Wheezing ED Course And Treatment - Laboratory Results Result Diagrams: 09/02/18 16:38 09/02/18 16:38 ECG: Interpreted By Me, Viewed By Me (NSR 70 bpm, normal axis, RBBB, no acute ST changes) O2 Sat by Pulse Oximetry: 91 (ra) Pulse Ox Interpretation: Abnormal - CT Scan/US CT HEAD Other Rad Studies (CT/US): Read By Radiologist, Radiology Report Reviewed CT/US Interpretation: EXAM: CT Head without Intravenous Contrast. CLINICAL HISTORY: Possible trauma. TECHNIQUE: Axial computed tomography images of the head/brain without intravenous contrast. Motion artifact limits the study. 0.00 mGy-cm. COMPARISON: None provided. FINDINGS: BRAIN. No acute intraparenchymal hemorrhage. No mass lesion. No CT evidence for acute territorial infarct. No midline shift or extra-axial collections. VENTRICLES: No hydrocephalus. ORBITS: The orbits are unremarkable. SINUSES AND MASTOIDS: The paranasal sinuses and mastoid air cells are clear. BONES: No fracture. SOFT TISSUES: Unremarkable. IMPRESSION: No acute intracranial abnormality. . Electronically signed on Sep 02, 2018 5:17:52 PM EST by: Mick Reddy M.D., Certified by [facility], Diagnostic Radiology CT CHEST/ABD/PELVIS Other Rad Studies (CT/US): Read By Radiologist, Radiology Report Reviewed CT/US Interpretation: EXAM: CT Chest without Intravenous Contrast. CT Abdomen and Pelvis without Intravenous Contrast. CLINICAL HISTORY: Possible trauma. TECHNIQUE: Axial computed tomography images of the chest, abdomen and pelvis without intravenous contrast. 0.00 mGy-cm. CONTRAST: Without. COMPARISON: None provided. FINDINGS: CHEST: LUNGS: There is scarring both lungs and infiltrate at the right mid and upper lung. There is no pleural effusion. PLEURAL SPACES: No pneumothorax evident. No pleural effusions. HEART: Heart appears enlarged central pulmonary arteries appear prominent. LYMPH NODES: No lymphadenopathy is evident. ABDOMEN AND PELVIS: LIVER: The liver is lobulated in contour and likely cirrhotic. GALLBLADDER AND BILE DUCTS: The gallbladder appears within normal limits. No radioopaque gallstones are seen. No biliary ductal dilatation is evident. PANCREAS: Unremarkable. SPLEEN: There is evidence of splenomegaly. ADRENAL GLANDS: Unremarkable. KIDNEYS, URETERS, AND BLADDER: Unremarkable. No hydronephrosis or nephrolithiasis. No uterteral or bladder calculi. STOMACH AND BOWEL: Unremarkable appearance of the stomach and bowel. No evidence of bowel obstruction. No evidence suggesting enteritis or colitis. Diverticular changes present sigmoid colon. APPENDIX: No evidence of acute appendicitis on CT examination. PERITONEUM: No free fluid. No free air. LYMPH NODES: No lymphadenopathy is evident. VASCULATURE: No evidence of abdominal aortic aneurysm. Atherosclerotic changes present. BONES: Old right lower rib fracture posteriorly noted. Note is made of subcutaneous edema. IMPRESSION: No acute intra-thoracic, intra-abdominal, or intra-pelvic abnormality. Mild infiltrate the right mid and upper lung as well as scarring both lungs. Enlarged heart and prominent central bony arteries. Old right lower rib fracture posteriorly. Cirrhotic liver. Mild splenomegaly. Subcutaneous edema. Clinical correlation advised. . Electronically signed on Sep 02, 2018 5:27:37 PM EST by: Mick Reddy M.D., Certified by [facility], Diagnostic Radiology Progress Note: Blood work, EKG, UDS, CT head, CT chest/abd/pelvis ordered and reviewed. Patient given IV NS bolus x3 due to hypotension. IV Narcan 0.4mg - patient immeidately became more awake and alert with mild improvement of BP. 9:15PM - Patient is now AAOx3, ambulating normally in the ED and clinically sober. He is insistent that he does not want to be admitted. Patient has signed out against my medical advice, and he understands that by doing so he ri sks worsening of current condition or possible edevn . Admission cancelled and Dr. Gorman. Disposition - Disposition Referrals: Nabil Johansen MD [Staff Provider] - Jass Gorman MD [Staff Provider] - Disposition: AGAINST MEDICAL ADVICE Disposition Time: 21:00 Condition: STABLE Instructions: Drug Abuse and Drug Addiction (DC) Forms: (AMA) Informed Refusal, [facility] (Maltese) Print Language: MALTESE - Clinical Impression Clinical Impression: Acute narcotic intoxication
[2018-09-02 16:46] LABS: BASO % 0.9 % (0.0-2.0); EOS # 0.1 K/uL (0.0-0.7); HEMOGLOBIN 14.2 g/dL (12.0-18.0); LYMPH % 35.7 % (20.0-40.0); MEAN CELL VOLUME 76.8 fL (80.0-94.0); MEAN CORPUSCULAR HEMOGLOBIN 24.7 pg (27.0-31.0); MEAN CORPUSCULAR HGB CONC 32.2 g/dL (33.0-37.0); MEAN PLATELET VOLUME 11.1 fL (7.2-11.7); MONO # 1.3 K/uL (0.0-0.8); MONO % 22.9 % (0.0-10.0); NEUT # 2.2 K/uL (1.8-7.0); NEUT % 38.5 % (50.0-75.0); NRBC % 0.2 % (0.0-2.0); PLATELET COUNT 95 K/uL (130-400); RBC 5.76 Mil/uL (4.40-5.90); RED CELL DISTRIBUTION WIDTH 20.1 % (11.5-14.5); WHITE BLOOD COUNT 5.6 K/uL (4.8-10.8)
[2018-09-02] MEDS ORDERED: Sodium Chloride 0.9% 1,000 ML ONE ×2 (16:49→18:49)
[2018-09-02 16:52] LABS: INR 1.3; PROTHROMBIN TIME 14.6 SECONDS (9.7-12.2)
[2018-09-02 16:59] LABS: ALB/GLOB RATIO 0.8 (1.0-2.1); ALT/SGPT 34 U/L (21-72); AST/SGOT 61 U/L (17-59); BLOOD UREA NITROGEN 22 mg/dL (9-20); CALCIUM 8.4 mg/dl (8.6-10.4); GFR NON-AFRICAN AMERICAN 38; LIPASE 40 U/L (23-300)
[2018-09-02 17:09] LABS: CK-MB 2.58 ng/mL (0.0-3.38)
[2018-09-02 17:28] LABS: ANISOCYTOSIS MODERATE; LYMPHOCYTE 29 % (20-40); MONOCYTE 26 % (0-10); NEUTROPHIL 44 % (50-75); PLATELET ESTIMATE DECREASED (NORMAL); REACTIVE LYMPHOCYTES 1 % (0-0); TOTAL CELLS COUNTED 100
[2018-09-02 17:29] LABS: VENOUS BLOOD GAS BASE EXCESS -5.2 mmol/L (0.0-2.0); VENOUS BLOOD GAS PCO2 46 mmHg (40-60); VENOUS BLOOD GAS PO2 32 mm/Hg (30-55); VENOUS BLOOD PH 7.28 (7.32-7.43)
[2018-09-02 17:29] LABS: BURR CELLS SLIGHT; GIANT PLATELETS PRESENT; HYPOCHROMIC SLIGHT; OVALOCYTES SLIGHT; POIKILOCYTOSIS SLIGHT; POLYCHROMIC SLIGHT
[2018-09-02 17:30] LABS: LARGE PLATELETS PRESENT
[2018-09-02] MEDS ORDERED: Naloxone 0.4 mg/ml Inj (Adult) IV ONE (19:47)
[2018-09-02] MEDS ORDERED: Naloxone 0.4 mg/ml Inj (Adult) ONE (20:03)
[2018-09-02 20:43] LABS: VENOUS BLOOD GAS BASE EXCESS -7.1 mmol/L (0.0-2.0); VENOUS BLOOD GAS PCO2 51 mmHg (40-60); VENOUS BLOOD GAS PO2 24 mm/Hg (30-55); VENOUS BLOOD PH 7.22 (7.32-7.43)
[2018-09-02 20:53] VITALS: RESP 16
[2018-09-02 21:16] LABS: GRANULAR CAST 219 /lpf (0-1); SQUAMOUS EPITHIAL 2 /hpf (0-5); URINE BACTERIA RARE (<OCC); URINE BILIRUBIN NEGATIVE (NEGATIVE); URINE BLOOD 3+ (NEGATIVE); URINE CLARITY Hazy (Clear); URINE COLOR Yellow (YELLOW); URINE GLUCOSE (UA) NORMAL (Normal); URINE LEUKOCYTE ESTERASE NEG Leu/uL (Negative); URINE PROTEIN 3+ mg/dL (NEGATIVE); URINE UROBILINOGEN NORMAL mg/dL (0.2-1.0)
[2018-09-02 21:24] LABS: BARBITURATES, UR NEGATIVE (NEGATIVE); BENZODIAZEPINES, UR NEGATIVE (NEGATIVE); OPIATES, UR POSITIVE (NEGATIVE); PHENCYCLIDINE, UR NEGATIVE (NEGATIVE)
[2018-09-02 21:41] VITALS: BP 94/68; PULSE 69; TEMP 9734; O2SAT 96
--- NOTE | 2018-09-03 08:40 | CT ---
Date of service: 09/02/2018 PROCEDURE: CT HEAD WITHOUT CONTRAST. HISTORY: Altered mental status COMPARISON: 08/30/2018. TECHNIQUE: Axial computed tomography images were obtained through the head/brain without intravenous contrast. Suboptimal diagnostic quality due to extensive beam hardening artifacts. Radiation dose: Total exam DLP = 1353.28 mGy-cm. This CT exam was performed using one or more of the following dose reduction techniques: Automated exposure control, adjustment of the mA and/or kV according to patient size, and/or use of iterative reconstruction technique. FINDINGS: HEMORRHAGE: No intracranial hemorrhage. BRAIN: Leary-white matter differentiation is preserved. There is no mass, mass effect or abnormal extra-axial fluid collection. There is no territorial infarction. The midline sagittal structures are normal. VENTRICLES: There is mild age advanced global parenchymal volume loss and proportionate enlargement of the ventricles and cortical sulci. CALVARIUM: There is no calvarial fracture or extracranial soft tissue swelling. PARANASAL SINUSES: Predominantly clear. MASTOID AIR CELLS: Predominantly clear. OTHER FINDINGS: None. IMPRESSION: No acute intracranial abnormality. A preliminary report was provided by [facility].
--- NOTE | 2018-09-03 09:28 | RAD ---
Date of service: 09/02/2018 PROCEDURE: CHEST RADIOGRAPH, 1 VIEW HISTORY: ams COMPARISON: 08/31/2018 FINDINGS: LUNGS: There is mild pulmonary venous congestion. No focal consolidation. PLEURA: No pneumothorax or pleural effusion. CARDIOVASCULAR: Moderate cardiomegaly and prominent central vasculature. No aortic atherosclerotic calcifications present. OSSEOUS STRUCTURES: Old fracture deformities in the right posterior and left lateral ribs. VISUALIZED UPPER ABDOMEN: Normal. OTHER FINDINGS: None. IMPRESSION: No acute findings. Moderate cardiomegaly and mild pulmonary venous congestion.
--- NOTE | 2018-09-03 09:49 | CARD ---
APPROVED REPORT Date of service: 09/02/2018 EKG Measurement Heart [id number] ID [id number] <Conclusion> Normal sinus rhythm Right bundle branch block Septal infarct, age undetermined Abnormal ECG
--- NOTE | 2018-09-03 11:10 | CT ---
Date of service: 09/02/2018 PROCEDURE: CT Chest, Abdomen and Pelvis without intravenous contrast HISTORY: Possible trauma COMPARISON: none available. TECHNIQUE: Radiation dose: Total exam DLP = 2146.25 mGy-cm. This CT exam was performed using one or more of the following dose reduction techniques: Automated exposure control, adjustment of the mA and/or kV according to patient size, and/or use of iterative reconstruction technique. FINDINGS: CT CHEST WITHOUT CONTRAST: LUNGS: There are opacities seen in the lung apices/upper lobes bilaterally right greater than left. Vague patchy infiltrates also present in the superior margins of both lower lobes as well. Mild passive/dependent type atelectasis both posterior sulci.. MEDIASTINUM: Heart is enlarged with apparent right atrial enlargement and to a lesser degree left atrial enlargement.. No significant pericardial effusion ascending thoracic aorta measures approximately 3.0 cm and descending thoracic aorta measures approximately 2.2 cm. Minimal aortic calcified plaque. The pulmonary trunk is dilated measuring nearly 3.8 cm with dilatation of the right and left main pulmonary arteries; rule out underlying pulmonary arterial hypertension... No significant pericardial effusion. The trachea is midline patent with no large endoluminal lesions. Splaying of the courtney and upward slight displacement of the mainstem bronchi likely atrial enlargement mentioned above. Small hiatal hernia. LYMPH NODES: Few tiny nonspecific mediastinal lymph nodes are present. Evaluation for hilar adenopathy limited due to the lack circulating intravenous contrast material. PLEURA: Unremarkable. No pneumothorax. No pleural fluid. BONES: Multiple bilateral posterior lower rib fracture deformities.. OTHER FINDINGS: None. CT ABDOMEN AND PELVIS: LIVER: The liver exhibits normal size though demonstrates nodular surface contour consistent with hepatic cirrhosis. There appears to be a very tiny approximately 3.5 mm low-attenuation focus anterior inferior aspect right lobe liver best seen on axial series 3, image number [id number].. Follow-up interval recommended to assess stability GALLBLADDER AND BILE DUCTS: . The gallbladder appears incompletely distended which probably in part accounts for thick-walled appearance however no obvious intraluminal gallbladder calculi. Clinical correlation recommended. PANCREAS: Pancreas appears atrophic and fatty replaced. No obvious pancreatic masses collections or calcifications.. SPLEEN: Spleen is borderline/mildly enlarged measuring nearly 13 cm in greatest dimension. ADRENALS: Left adrenal gland is not well delineated on this exam due to the presence of adjacent loops of small bowel. Right adrenal gland unremarkable.. KIDNEYS AND URETERS: Kidneys exhibit relatively symmetric size. No evidence of nephrolithiasis or hydronephrosis. Minimal nonspecific infiltration changes seen within perinephric fat. VASCULATURE: Mild aortic atherosclerotic calcification or mural plaque present. Unremarkable. No aortic aneurysm. BOWEL: Evaluation the of the bowel is limited due to the lack of oral contrast material. The stomach is incompletely distended with food debris liquid and air. Visualized loops of small bowel exhibit normal contour and caliber. No evidence of acute mechanical small bowel obstruction. Stool and air seen throughout the large bowel. Are few scattered colonic diverticula seen along the sigmoid colon however no radiographic evidence of acute diverticulitis. APPENDIX: Norm what probably represents a normal appendix partially visualized best axial series 6 image number [id number]. No periappendiceal inflammatory changes. PERITONEUM: Unremarkable. No free fluid. No free air. LYMPH NODES: Unremarkable. No enlarged lymph nodes. BLADDER: Urinary bladder is incompletely distended which in part accounts for thick-walled appearance. Muscular hypertrophy presumably contributes. However correlation with urinalysis recommended to exclude cystitis or other intrinsic/invasive wall lesion. REPRODUCTIVE: Prostate gland unremarkable. BONES: No evidence of acute compression fractures no retropulsed fragments. Minor multilevel degenerative spondylosis of the lumbar spine. OTHER FINDINGS: There appears to be mild diffuse anasarca changes. IMPRESSION: There are patchy infiltrate changes seen in the lung apices upper lobes bilaterally right greater than left. Mild patchy infiltrates superior margins of both lower lobes. Mild passive/dependent atelectasis both lung bases. Cardiomegaly with marked right and to a lesser degree left atrial enlargement with upward splaying of the courtney and mainstem bronchi. Cirrhotic liver. Few scattered colonic diverticula without radiographic evidence of acute diverticulitis. Mild anasarca changes.
== END 2018-09-02 21:40 | disposition left against medical advice (07) ==
LOC: C.ER 16:18 → UNDOADMOB 20:19 → C.9E 20:19 → C.ER 21:40
DX: F19.129 Other psychoactive substance abuse with intoxication, unspecified (principal); F31.9 Bipolar disorder, unspecified; F41.9 Anxiety disorder, unspecified; I10 Essential (primary) hypertension; J44.9 Chronic obstructive pulmonary disease, unspecified; Z95.5 Presence of coronary angioplasty implant and graft
CPT/HCPCS: 70450; 71045; 71250; 74176; 80053; 81001; 82140; 82550; 82553; 82803; 82948; 83690; 84484; 85025; 85610; 85730; 86850; 86900; 93005; 96360; 99285; G0480; J2310; J7030